=== PATIENT | male | born 1935 | race Caucasian/White ===

== ENCOUNTER 2020-07-04 10:39 | Emergency (ER) | payer MEDICARE ==
--- NOTE | 2020-07-04 12:08 | XR ---
EXAMINATION TYPE: XR knee complete LT DATE OF EXAM: 07/04/2020 CLINICAL HISTORY: Fall. Left knee pain. TECHNIQUE: Three views of the left knee are obtained. COMPARISON: None. FINDINGS: There is no acute fracture/dislocation evident in left knee. There is moderate tricompartm ental degenerative spurring. There is medial compartment joint space narrowing and sclerosis. There i s spurring of the tibial spines, worst medially. There is large suprapatellar joint effusion. Edema o f Hoffa's fat pad. There is quadriceps tendon patellar enthesophyte. Vascular calcified atherosclerot ic disease. IMPRESSION: 1. No acute osseous abnormality. 2. Large suprapatellar joint effusion and infrapatellar edema of Hoffa's fat pad. 3. Osteoarthritic changes as above.
[2020-07-04] MEDS ORDERED: ACET/COD 300 MG/30 MG STARTER PACK 6 TAB BTL PO STA (12:23)
--- NOTE | 2020-07-04 12:23 | ED ---
Fall HPI - General Chief Complaint: Fall Stated Complaint: Fall, Knee Injury Time Seen by Provider: 07/04/20 11:00 Source: patient, family Mode of arrival: wheelchair Limitations: physical limitation - History of Present Illness Initial Comments: 85-year-old male present emergency Department with chief complaint of a fall. Patient fell yesterday. Patient did strike his head but had no point a headache and no facial pain. Patient son states his been acting appropriately. Patient presents today secondary to left knee pain and swelling. No blood thinners noted. Patient has no chest pain or shortness breath no back pain. Patient had difficulty and bleeding secondary pain with assisted devices at home. - Related Data Home Medications Medication Instructions Recorded Confirmed Amoxicillin 500 mg PO Q8H 07/04/20 07/04/20 Aspirin EC [Ecotrin Low Dose] 81 mg PO HS 07/04/20 07/04/20 Furosemide [Lasix] 20 mg PO DAILY 07/04/20 07/04/20 Melatonin Unknown Dose 1 tab PO HS 07/04/20 07/04/20 Metoprolol Succinate [Toprol XL] 12.5 mg PO DAILY 07/04/20 07/04/20 Simvastatin [Zocor] 20 mg PO HS 07/04/20 07/04/20 Tamsulosin [Flomax] 0.4 mg PO BID 07/04/20 07/04/20 lisinopriL [Zestril] 5 mg PO DAILY 07/04/20 07/04/20 Allergies Allergy/AdvReac Type Severity Reaction Status Date / Time No Known Allergies Allergy Verified 07/04/20 11:27 Review of Systems ROS Statement: Those systems with pertinent positive or pertinent negative responses have been documented in the HPI. ROS Other: All systems not noted in ROS Statement are negative. Past Medical History Past Medical History: Hypertension History of Any Multi-Drug Resistant Organisms: None Reported Past Surgical History: Pacemaker Smoking Status: Never smoker Past Alcohol Use History: None Reported Past Drug Use History: None Reported General Exam Limitations: physical limitation General appearance: alert, in no apparent distress Head exam: Present: atraumatic, normocephalic, normal inspection Eye exam: Present: normal appearance, PERRL, EOMI. Absent: scleral icterus, conjunctival injection, periorbital swelling ENT exam: Present: normal exam, mucous membranes moist Neck exam: Present: normal inspection. Absent: tenderness, meningismus, lymphadenopathy Respiratory exam: Present: normal lung sounds bilaterally. Absent: respiratory distress, wheezes, rales, rhonchi, stridor Cardiovascular Exam: Present: regular rate, normal rhythm, normal heart sounds. Absent: systolic murmur, diastolic murmur, rubs, gallop, clicks Extremities exam: Present: other (Left knee there is moderate swelling noted, no significant ecchymosis. Pulses equal bilaterally lower extremity is no tenderness of bubble or below the left knee.) Back exam: Present: full ROM. Absent: tenderness Neurological exam: Present: alert, oriented X3, CN II-XII intact, reflexes normal. Absent: motor sensory deficit Course Vital Signs 07/04/20 10:56 Temperature 98.5 F Pulse Rate 70 Respiratory 18 Rate Blood Pressure 140/62 O2 Sat by Pulse 97 Oximetry Medical Decision Making - Medical Decision Making X-ray was reviewed patient has evidence of no bony injury evidence of severe joint effusion. Patient will use a walking assistive device will follow-up with orthopedics for possible drainage. Return parameters were discussed. Family updated and results. Disposition Clinical Impression: Fall, Left knee sprain, Effusion of left knee joint Disposition: HOME SELF-CARE Condition: Stable Instructions (If sedation given, give patient instructions): Swollen Knee Joint (ED) Additional Instructions: Please return to the Emergency Department if symptoms worsen or any other concerns. Is patient prescribed a controlled substance at d/c from ED?: No Referrals: Tamiko Cooper MD [Primary Care Provider] - 1-2 days Kirill Francisco MD [STAFF PHYSICIAN] - 1-2 days Time of Disposition: 12:22
[2020-07-04 12:35] VITALS: BP 156/81; PULSE 66; RESP 12; TEMP 97.5
== END 2020-07-04 12:46 | disposition home or self-care (01) ==
LOC: EC 10:39
DX: S83.92XA Sprain of unspecified site of left knee, initial encounter (principal); M25.462 Effusion, left knee; I10 Essential (primary) hypertension; Z79.899 Other long term (current) drug therapy; Z95.0 Presence of cardiac pacemaker; W01.198A Fall on same level from slipping, tripping and stumbling with subsequent striking against other object, initial encounter; Y92.009 Unspecified place in unspecified non-institutional (private) residence as the place of occurrence of the external cause
CPT/HCPCS: 99283

== ENCOUNTER 2020-12-23 11:53 | Inpatient (IN) | payer MEDICARE ==
--- NOTE | 2020-12-23 13:55 | ED ---
SOB HPI <Nick Tyson - Last Filed: 12/23/20 17:33> - General Source: patient, family Mode of arrival: wheelchair Limitations: no limitations <Bhargav Elena - Last Filed: 12/23/20 18:37> - General Chief Complaint: Shortness of Breath Stated Complaint: SOB Time Seen by Provider: 12/23/20 13:51 - History of Present Illness Initial Comments: 85-year-old male with history of dementia, dyslipidemia, hypertension, heart failure presents to the emergency department with a chief complaint of shortness of breath. Daughter states the patient has been slightly more confused over the last several days where she will forget about a food and where he dropped off his drinks. Daughter states the patient also seems to be taking deeper breaths than usual. Patient denies any chest pain report feeling slightly short of breath. Daughter states the patient was mentally well until about 10 months ago when he had multiple broken ribs after fall, and has since been gradually declining. There is no nausea vomiting or diarrhea. She also states the patient has not been taking his Lasix for approximately 2 weeks. He does have bilateral lower extremity edema. Patient is alert to self and place but not time. (Bhargav Elena) - Related Data Home Medications Medication Instructions Recorded Confirmed Aspirin EC [Ecotrin Low Dose] 81 mg PO HS 07/04/20 12/23/20 Metoprolol Succinate [Toprol XL] 12.5 mg PO DAILY 07/04/20 12/23/20 Simvastatin [Zocor] 20 mg PO HS 07/04/20 12/23/20 Tamsulosin [Flomax] 0.4 mg PO DAILY 07/04/20 12/23/20 lisinopriL [Zestril] 5 mg PO DAILY 07/04/20 12/23/20 Cholecalciferol [Vitamin D3 (25 25 mcg PO DAILY 12/23/20 12/23/20 Mcg = 1000 Iu)] Furosemide [Lasix] 20 mg PO DAILY 12/23/20 12/23/20 Prevagen 1 tab PO DAILY 12/23/20 12/23/20 Allergies Allergy/AdvReac Type Severity Reaction Status Date / Time No Known Allergies Allergy Verified 12/23/20 15:24 Review of Systems ROS Other: All systems not noted in ROS Statement are negative. <Nick Tyson - Last Filed: 12/23/20 17:33> ROS Other: All systems not noted in ROS Statement are negative. <Bhargav Elena - Last Filed: 12/23/20 18:37> ROS Statement: Those systems with pertinent positive or pertinent negative responses have been documented in the HPI. Past Medical History Past Medical History: Heart Failure, Hyperlipidemia, Hypertension History of Any Multi-Drug Resistant Organisms: None Reported Past Surgical History: Pacemaker Past Psychological History: No Psychological Hx Reported Smoking Status: Never smoker Past Alcohol Use History: None Reported Past Drug Use History: None Reported <Bhargav Elena - Last Filed: 12/23/20 18:37> General Exam Limitations: no limitations General appearance: alert, in no apparent distress Head exam: Present: atraumatic, normocephalic, normal inspection Eye exam: Present: normal appearance, PERRL, EOMI Pupils: Present: normal accommodation ENT exam: Present: normal exam, normal oropharynx, mucous membranes moist Neck exam: Present: normal inspection, full ROM. Absent: tenderness Respiratory exam: Present: normal lung sounds bilaterally. Absent: respiratory distress Cardiovascular Exam: Present: regular rate, normal rhythm, normal heart sounds GI/Abdominal exam: Present: soft. Absent: distended, tenderness, guarding, rebound Extremities exam: Present: normal inspection, full ROM, normal capillary refill, pedal edema (+2 pitting edema bilaterally.), other (Palpable DP and PT bilaterally). Absent: tenderness, joint swelling Back exam: Present: normal inspection, full ROM. Absent: tenderness, CVA tenderness (R), CVA tenderness (L) Neurological exam: Present: alert. Absent: oriented X3 ( Patient is alert to self and place but not time.) Psychiatric exam: Present: normal affect, normal mood Skin exam: Present: warm, dry, intact, normal color, petechiae (Petechiae noted in bilateral lower extremities. She also has ecchymosis on the posterior aspect the left hand.), other (Patient appears slightly jaundiced.) <Bhargav Elena - Last Filed: 12/23/20 18:37> Course <Nick Tyson - Last Filed: 12/23/20 17:33> Vital Signs 12/23/20 12:09 Temperature 97.7 F Pulse Rate 70 Respiratory 18 Rate Blood Pressure 142/70 O2 Sat by Pulse 98 Oximetry - Reevaluation(s) Reevaluation #1: 12/23/20 17:33 PA supervision: I personally evaluate this case patient presenting with shortness of breath and increased confusion over last couple days. He was found on evaluation have pneumonia with a right-sided effusion attempts at pain. He looks and has clinical evidence of dehydration. CTs were negative for evidence of any bleeding or PE. He did have a markedly elevated d-dimer. Discussed with Dr. ballard (Nick Tyson) Medical Decision Making - Lab Data Result diagrams: 12/23/20 15:00 12/23/20 15:00 <Nick Tyson - Last Filed: 12/23/20 17:33> - Lab Data Result diagrams: 12/23/20 15:00 12/23/20 15:00 <Bhargav Elena - Last Filed: 12/23/20 18:37> - Medical Decision Making 85-year-old male presents to the emergency department with a chief complaint of shortness of breath and confusion. On physical examination, patient is alert and oriented 2. He does have petechia in bilateral lower extremities likely some secondary to not taking his Lasix for about 2 weeks. Patient had a markedly elevated d-dimer. CT chest and U performed shows no signs of pulmonary embolism but there is a bilateral pleural effusion, as well as right lower lobe pneumonia. CBC shows no leukocytosis but there is marked thrombocytopenia with platelet count of 13 which is likely causing the petechia. Immediately a CT of the brain was obtained showing no acute processes. Blood cultures were obtained and patient was started on Rocephin and azithromycin. Coronavirus negative. I spoke with Dr. ballard who will admit the patient for further medical management. Case discussed with Dr. Tyson who walks examine the patient and is in agreement with the treatment plan. (Bhargav Elena) - Lab Data Lab Results 12/23/20 12/23/20 12/23/20 Range/Units 15:00 15:00 15:00 WBC 6.8 (3.8-10.6) k/uL RBC 3.33 L (4.30-5.90) m/uL Hgb 10.0 L (13.0-17.5) gm/dL Hct 30.2 L (39.0-53.0) % MCV 90.6 (80.0-100.0) fL MCH 30.1 (25.0-35.0) pg MCHC 33.2 (31.0-37.0) g/dL RDW 16.6 H (11.5-15.5) % Plt Count 13 L* (150-450) k/uL MPV 8.3 Neutrophils % 81 % Lymphocytes % 11 % Monocytes % 6 % Eosinophils % 1 % Basophils % 0 % Neutrophils # 5.6 (1.3-7.7) k/uL Lymphocytes # 0.7 L (1.0-4.8) k/uL Monocytes # 0.4 (0-1.0) k/uL Eosinophils # 0.1 (0-0.7) k/uL Basophils # 0.0 (0-0.2) k/uL Manual Slide Review Performed Anisocytosis Slight PT 12.6 H (9.0-12.0) sec INR 1.2 H (<1.2) APTT 27.4 (22.0-30.0) sec D-Dimer >34.10 H (<0.60) mg/L FEU Sodium 142 (137-145) mmol/L Potassium 4.8 (3.5-5.1) mmol/L Chloride 108 H (98-107) mmol/L Carbon Dioxide 27 (22-30) mmol/L Anion Gap 7 mmol/L BUN 34 H (9-20) mg/dL Creatinine 0.63 L (0.66-1.25) mg/dL Est GFR (CKD-EPI)AfAm >90 (>60 ml/min/1.73 sqM) Est GFR (CKD-EPI)NonAf 89 (>60 ml/min/1.73 sqM) Glucose 108 H (74-99) mg/dL Calcium 9.3 (8.4-10.2) mg/dL Magnesium 2.2 (1.6-2.3) mg/dL Total Bilirubin 3.6 H (0.2-1.3) mg/dL AST 31 (17-59) U/L ALT 20 (4-49) U/L Alkaline Phosphatase 110 (38-126) U/L Ammonia (<30) umol/L Troponin I (0.000-0.034) ng/mL NT-Pro-B Natriuret Pep pg/mL Total Protein 7.2 (6.3-8.2) g/dL Albumin 4.2 (3.5-5.0) g/dL Urine Color Urine Appearance (Clear) Urine pH (5.0-8.0) Ur Specific Sy[place] (1.001-1.035) Urine Protein (Negative) Urine Glucose (UA) (Negative) Urine Ketones (Negative) Urine Blood (Negative) Urine Nitrite (Negative) Urine Bilirubin (Negative) Urine Urobilinogen (<2.0) mg/dL Ur Leukocyte Esterase (Negative) Urine RBC (0-5) /hpf Urine WBC (0-5) /hpf Ur Squamous Epith Cells (0-4) /hpf Hyaline Casts (0-2) /lpf Urine Mucus (None) /hpf Coronavirus (PCR) (Not Detectd) 12/23/20 12/23/20 12/23/20 Range/Units 15:00 15:00 15:00 WBC (3.8-10.6) k/uL RBC (4.30-5.90) m/uL Hgb (13.0-17.5) gm/dL Hct (39.0-53.0) % MCV (80.0-100.0) fL MCH (25.0-35.0) pg MCHC (31.0-37.0) g/dL RDW (11.5-15.5) % Plt Count (150-450) k/uL MPV Neutrophils % % Lymphocytes % % Monocytes % % Eosinophils % % Basophils % % Neutrophils # (1.3-7.7) k/uL Lymphocytes # (1.0-4.8) k/uL Monocytes # (0-1.0) k/uL Eosinophils # (0-0.7) k/uL Basophils # (0-0.2) k/uL Manual Slide Review Anisocytosis PT (9.0-12.0) sec INR (<1.2) APTT (22.0-30.0) sec D-Dimer (<0.60) mg/L FEU Sodium (137-145) mmol/L Potassium (3.5-5.1) mmol/L Chloride (98-107) mmol/L Carbon Dioxide (22-30) mmol/L Anion Gap mmol/L BUN (9-20) mg/dL Creatinine (0.66-1.25) mg/dL Est GFR (CKD-EPI)AfAm (>60 ml/min/1.73 sqM) Est GFR (CKD-EPI)NonAf (>60 ml/min/1.73 sqM) Glucose (74-99) mg/dL Calcium (8.4-10.2) mg/dL Magnesium (1.6-2.3) mg/dL Total Bilirubin (0.2-1.3) mg/dL AST (17-59) U/L ALT (4-49) U/L Alkaline Phosphatase (38-126) U/L Ammonia <9 (<30) umol/L Troponin I 0.033 (0.000-0.034) ng/mL NT-Pro-B Natriuret Pep 6160 pg/mL Total Protein (6.3-8.2) g/dL Albumin (3.5-5.0) g/dL Urine Color Urine Appearance (Clear) Urine pH (5.0-8.0) Ur Specific Sy[place] (1.001-1.035) Urine Protein (Negative) Urine Glucose (UA) (Negative) Urine Ketones (Negative) Urine Blood (Negative) Urine Nitrite (Negative) Urine Bilirubin (Negative) Urine Urobilinogen (<2.0) mg/dL Ur Leukocyte Esterase (Negative) Urine RBC (0-5) /hpf Urine WBC (0-5) /hpf Ur Squamous Epith Cells (0-4) /hpf Hyaline Casts (0-2) /lpf Urine Mucus (None) /hpf Coronavirus (PCR) (Not Detectd) 12/23/20 12/23/20 Range/Units 15:00 15:00 WBC (3.8-10.6) k/uL RBC (4.30-5.90) m/uL Hgb (13.0-17.5) gm/dL Hct (39.0-53.0) % MCV (80.0-100.0) fL MCH (25.0-35.0) pg MCHC (31.0-37.0) g/dL RDW (11.5-15.5) % Plt Count (150-450) k/uL MPV Neutrophils % % Lymphocytes % % Monocytes % % Eosinophils % % Basophils % % Neutrophils # (1.3-7.7) k/uL Lymphocytes # (1.0-4.8) k/uL Monocytes # (0-1.0) k/uL Eosinophils # (0-0.7) k/uL Basophils # (0-0.2) k/uL Manual Slide Review Anisocytosis PT (9.0-12.0) sec INR (<1.2) APTT (22.0-30.0) sec D-Dimer (<0.60) mg/L FEU Sodium (137-145) mmol/L Potassium (3.5-5.1) mmol/L Chloride (98-107) mmol/L Carbon Dioxide (22-30) mmol/L Anion Gap mmol/L BUN (9-20) mg/dL Creatinine (0.66-1.25) mg/dL Est GFR (CKD-EPI)AfAm (>60 ml/min/1.73 sqM) Est GFR (CKD-EPI)NonAf (>60 ml/min/1.73 sqM) Glucose (74-99) mg/dL Calcium (8.4-10.2) mg/dL Magnesium (1.6-2.3) mg/dL Total Bilirubin (0.2-1.3) mg/dL AST (17-59) U/L ALT (4-49) U/L Alkaline Phosphatase (38-126) U/L Ammonia (<30) umol/L Troponin I (0.000-0.034) ng/mL NT-Pro-B Natriuret Pep pg/mL Total Protein (6.3-8.2) g/dL Albumin (3.5-5.0) g/dL Urine Color Yellow Urine Appearance Clear (Clear) Urine pH 6.5 (5.0-8.0) Ur Specific [place] 1.026 (1.001-1.035) Urine Protein Trace H (Negative) Urine Glucose (UA) Negative (Negative) Urine Ketones Negative (Negative) Urine Blood Small H (Negative) Urine Nitrite Negative (Negative) Urine Bilirubin Negative (Negative) Urine Urobilinogen 8.0 (<2.0) mg/dL Ur Leukocyte Esterase Negative (Negative) Urine RBC 8 H (0-5) /hpf Urine WBC 3 (0-5) /hpf Ur Squamous Epith Cells <1 (0-4) /hpf Hyaline Casts 1 (0-2) /lpf Urine Mucus Few H (None) /hpf Coronavirus (PCR) Not Detected (Not Detectd) Disposition <Nick Tyson - Last Filed: 12/23/20 17:33> Is patient prescribed a controlled substance at d/c from ED?: No Time of Disposition: 18:36 <Bhargav Elena - Last Filed: 12/23/20 18:37> Clinical Impression: Pneumonia, Pleural effusion, Thrombocytopenia Disposition: ADMITTED IP TO THIS HOSP Condition: Fair Referrals: Tamiko Cooper MD [Primary Care Provider] - 1-2 days
[2020-12-23 15:21] LABS: Anisocytosis Slight; Basophils % (A) 0 %; Eosinophils # (A) 0.1 k/uL (0-0.7); Eosinophils % (A) 1 %; HCT 30.2 % (39.0-53.0); Lymphocytes # (A) 0.7 k/uL (1.0-4.8); Lymphocytes % (A) 11 %; MCH 30.1 pg (25.0-35.0); MCHC 33.2 g/dL (31.0-37.0); MCV 90.6 fL (80.0-100.0); Mean Platelet Volume 8.3; Monocytes # (A) 0.4 k/uL (0-1.0); Monocytes % (A) 6 %; Neutrophils # (A) 5.6 k/uL (1.3-7.7); Neutrophils % (A) 81 %; RBC 3.33 m/uL (4.30-5.90); RDW 16.6 % (11.5-15.5); WBC 6.8 k/uL (3.8-10.6)
[2020-12-23 15:33] LABS: ALT 20 U/L (4-49); AST 31 U/L (17-59); African American GFR (CKD) >90 (>60 ml/min/1.73 sqM); Albumin 4.2 g/dL (3.5-5.0); Alkaline Phosphatase 110 U/L (38-126); Anion Gap 7 mmol/L; Blood Urea Nitrogen 34 mg/dL (9-20); Calcium 9.3 mg/dL (8.4-10.2); Carbon Dioxide 27 mmol/L (22-30); Chloride 108 mmol/L (98-107); Glucose 108 mg/dL (74-99); Magnesium 2.2 mg/dL (1.6-2.3); Non-African American GFR(CKD) 89 (>60 ml/min/1.73 sqM); Potassium 4.8 mmol/L (3.5-5.1); Sodium 142 mmol/L (137-145); Total Bilirubin 3.6 mg/dL (0.2-1.3); Total Protein 7.2 g/dL (6.3-8.2)
[2020-12-23 15:39] LABS: Platelet Count 13 k/uL (150-450)
[2020-12-23 15:40] LABS: INR 1.2 (<1.2); Partial Thromboplastin Time 27.4 sec (22.0-30.0); Prothrombin Time 12.6 sec (9.0-12.0)
[2020-12-23 15:42] LABS: D-Dimer >34.10 mg/L FEU (<0.60)
--- NOTE | 2020-12-23 15:51 | XR ---
EXAMINATION TYPE: XR chest 2V DATE OF EXAM: 12/23/2020 COMPARISON: NONE HISTORY: Chest pain, shortness of breath TECHNIQUE: Frontal and lateral views of the chest are obtained. FINDINGS: Prominent lung volumes may be indicative of underlying COPD. There is a generator in left pectoral region, leads are noted in the right atrium, right ventricle and coronary sinus. There is no evident pneumothorax. Patchy basilar density is present, the right hemidiaphragm is obscured, there is blunting the right costophrenic angle. Heart is enlarged. Aorta is dense. There is no evident pneu mothorax. There are overlying leads. IMPRESSION: Right pleural effusion and associated atelectasis, correlate to exclude pneumonia. Cardi omegaly
[2020-12-23 16:29] LABS: Appearance,Urine Clear (Clear); Bilirubin,Urine Negative (Negative); Blood,Urine Small (Negative); Color,Urine Yellow; Glucose,Urine (UA) Negative (Negative); Hyaline Casts,Urine 1 /lpf (0-2); Ketones,Urine Negative (Negative); Leukocyte Esterase,Urine Negative (Negative); Mucus,Urine Few /hpf; Nitrite,Urine Negative (Negative); PH, Urine 6.5 (5.0-8.0); Protein,Urine Trace (Negative); RBC,Urine 8 /hpf (0-5); Specific Gravity,Urine 1.026 (1.001-1.035); Squamous Epithelial Cell,Urine <1 /hpf (0-4); WBC,Urine 3 /hpf (0-5)
--- NOTE | 2020-12-23 16:47 | CT ---
EXAMINATION TYPE: CT brain wo con DATE OF EXAM: 12/23/2020 COMPARISON: None HISTORY: Altered mental status CT DLP: 1047.4 mGycm Automated exposure control for dose reduction was used. There is cerebral cortical atrophy. There is no mass effect normal Shift. There is no sign of intracranial hemorrhage. Calvarium is intact. Skull base is intact. There is normal aeration of the mastoid sinuses. Nasal bone is intact. IMPRESSION: Cerebral atrophy. No acute intracranial abnormality. Chronic small vessel ischemia.
--- NOTE | 2020-12-23 16:53 | CT ---
EXAMINATION TYPE: CT chest angio for PE DATE OF EXAM: 12/23/2020 COMPARISON: None HISTORY: Short of breath CT DLP: mGycm Automated exposure control for dose reduction was used. CONTRAST: The contrast was Isovue 100 mL. There are 3-D post processed images. There is moderate size right pleural effusion. There is some infiltrate and atelectasis right lung ba se. Heart is enlarged. There is no pericardial effusion. There is small left pleural effusion. Thoracic aorta shows atheromatous change. There is no aneurysm or dissection. There is normal contrast opacification of the pulmonary arteries. There are no filling defects. The thoracic vertebra appear intact. There is no compression fracture. Sternum is intact. IMPRESSION: No evidence of pulmonary embolism. Moderate right pleural effusion and small left pleural effusion. Right lower lobe pneumonia and atel ectasis. No suspicious pulmonary mass.
[2020-12-23] MEDS ORDERED: ACETAMINOPHEN TAB 325 MG TAB PO PRN (17:35)
[2020-12-23] MEDS ORDERED: ONDANSETRON 4 MG/2 ML VIAL IVP PRN (17:35)
[2020-12-23] MEDS ORDERED: NALOXONE 0.4 MG/ML 1 ML VIAL IV PRN (17:35)
[2020-12-23] MEDS ORDERED: LORazepam 2 MG/ML INJ IV PRN (17:35)
[2020-12-23] MEDS ORDERED: cefTRIAXone IN SWFI 1,000 MG/10 ML SYRINGE IVP STA (17:36)
[2020-12-23] MEDS ORDERED: AZITHROMYCIN 500 MG in SODIUM CHLORIDE 0.9% 250 ML IVPB STA (17:36)
[2020-12-23] MEDS: SODIUM CHLORIDE 0.9% 1,000 ML IV SCH (18:38)
[2020-12-24] MEDS: SODIUM CHLORIDE 0.9% 1,000 ML IV SCH (08:13)
[2020-12-24 10:54] VITALS: BMI 22.1
--- NOTE | 2020-12-24 15:06 | P.HPIM ---
History of Present Illness 85-year-old the male with history of dementia has been worsening For few months was brought in by the family members for probable shortness of breath family members are not available patient is unable to provide any history to me patient had the workup with a CT which did not show any pulmonary embolism patient has highly elevated d-dimer and severe thrombocytopenia patient did have bilateral pleural effusions, elevated BNP and unable to assess JVD because of maximum usage. Echocardiogram will be obtained. Patient has been falling lately and broken multiple ribs after a fall 10 months ago. Since then patient to functional status as well as mental status has been constantly declining. Patient appears to have worsening dementia. Doesn't appear to have any delirium at this time. Patient doesn't have any fever chills patient doesn't have any leukocytosis. He is mildly elevated INR of 1.2 patient is alert oriented times probably 1. Patient doesn't look ill Review of Systems Unable to obtain due to his clinical condition and advanced dementia Past Medical History Past Medical History: Cancer, Heart Failure, Hyperlipidemia, Hypertension, Ben ry Impairment Additional Past Medical History / Comment(s): skin cancer, chest pain over 40 years ago, shingles when he was 39 years old, left eye blind, enlarged prostate multiple times where he has had to have catheters put in for a week before, bowel obstruction related to bowel kinked, per daughter only wants father to receive over counter pain meds no iv or hard medication it makes him very confused History of Any Multi-Drug Resistant Organisms: None Reported Past Surgical History: Pacemaker Past Anesthesia/Blood Transfusion Reactions: No Reported Reaction Type of Cardiac Device: Permanent Pacemaker Device Placement Date:: 12/03/2014 Past Psychological History: No Psychological Hx Reported Additional Psychological History / Comment(s): son lives with him, patient gets meals on wheels Smoking Status: Never smoker Past Alcohol Use History: None Reported Past Drug Use History: None Reported - Past Family History Father Family Medical History: Unable to Obtain Medications and Allergies Home Medications Medication Instructions Recorded Confirmed Type Aspirin EC [Ecotrin Low Dose] 81 mg PO HS 07/04/20 12/23/20 History Metoprolol Succinate [Toprol XL] 12.5 mg PO DAILY 07/04/20 12/23/20 History Simvastatin [Zocor] 20 mg PO HS 07/04/20 12/23/20 History Tamsulosin [Flomax] 0.4 mg PO DAILY 07/04/20 12/23/20 History lisinopriL [Zestril] 5 mg PO DAILY 07/04/20 12/23/20 History Cholecalciferol [Vitamin D3 (25 25 mcg PO DAILY 12/23/20 12/23/20 History Mcg = 1000 Iu)] Furosemide [Lasix] 20 mg PO DAILY 12/23/20 12/23/20 History Prevagen 1 tab PO DAILY 12/23/20 12/23/20 History Allergies Allergy/AdvReac Type Severity Reaction Status Date / Time No Known Allergies Allergy Verified 12/23/20 15:24 Physical Exam Vitals: Vital Signs Temp Pulse Pulse Resp BP BP Pulse Ox 12/24/20 13:52 97.5 F L 78 18 175/69 94 L 12/24/20 07:50 97.5 F L 70 20 158/75 100 12/24/20 04:05 97.6 F 69 16 150/75 97 12/24/20 00:50 97.5 F L 69 16 157/82 98 12/23/20 23:00 98.3 F 70 20 139/78 95 12/23/20 22:00 70 20 137/69 96 12/23/20 21:00 70 18 132/83 96 12/23/20 20:00 70 18 121/79 99 12/23/20 18:00 70 22 148/95 96 12/23/20 17:00 70 22 162/84 96 12/23/20 16:00 70 22 160/85 98 12/23/20 15:00 70 20 143/95 99 Intake and Output 12/23/20 12/24/20 12/24/20 22:59 06:59 14:59 Intake Total 350 Balance 350 Intake: Intake, IV Titration 350 Amount Sodium Chloride 0.9% 1, 350 000 ml @ 75 mls/hr IV . [id number] Rx#:[id number] Other: Voiding Method Toilet # Voids 1 Weight 68.039 kg 68.039 kg PHYSICAL EXAMINATION: GENERAL: The patient is alert and oriented x1, not in any acute distress. Well developed, well nourished. HEENT: Pupils are round and equally reacting to light. EOMI. No scleral icterus. No conjunctival pallor. Normocephalic, atraumatic. No pharyngeal erythema. No thyromegaly. CARDIOVASCULAR: S1 and S2 present. No murmurs, rubs, or gallops. PULMONARY: Chest is clear to auscultation, no wheezing or crackles. ABDOMEN: Soft, nontender, nondistended, normoactive bowel sounds. No palpable organomegaly. MUSCULOSKELETAL: No joint swelling or deformity. EXTREMITIES: No cyanosis, clubbing, or pedal edema. NEUROLOGICAL: Unable to assess much of urine exam as patient doesn't follow c ommands very well SKIN: No rashes. Results CBC & Chem 7: 12/23/20 15:00 12/23/20 15:00 Labs: Abnormal Lab Results - Last 24 Hours (Table) 12/23/20 12/23/20 12/23/20 Range/Units 15:00 15:00 15:00 RBC 3.33 L (4.30-5.90) m/uL Hgb 10.0 L (13.0-17.5) gm/dL Hct 30.2 L (39.0-53.0) % RDW 16.6 H (11.5-15.5) % Plt Count 13 L* (150-450) k/uL Lymphocytes # 0.7 L (1.0-4.8) k/uL PT 12.6 H (9.0-12.0) sec INR 1.2 H (<1.2) D-Dimer >34.10 H (<0.60) mg/L FEU Chloride 108 H (98-107) mmol/L BUN 34 H (9-20) mg/dL Creatinine 0.63 L (0.66-1.25) mg/dL Glucose 108 H (74-99) mg/dL Total Bilirubin 3.6 H (0.2-1.3) mg/dL Urine Protein (Negative) Urine Blood (Negative) Urine RBC (0-5) /hpf Urine Mucus (None) /hpf 12/23/20 Range/Units 15:00 RBC (4.30-5.90) m/uL Hgb (13.0-17.5) gm/dL Hct (39.0-53.0) % RDW (11.5-15.5) % Plt Count (150-450) k/uL Lymphocytes # (1.0-4.8) k/uL PT (9.0-12.0) sec INR (<1.2) D-Dimer (<0.60) mg/L FEU Chloride (98-107) mmol/L BUN (9-20) mg/dL Creatinine (0.66-1.25) mg/dL Glucose (74-99) mg/dL Total Bilirubin (0.2-1.3) mg/dL Urine Protein Trace H (Negative) Urine Blood Small H (Negative) Urine RBC 8 H (0-5) /hpf Urine Mucus Few H (None) /hpf Thrombosis Risk Factor Assmnt - Choose All That Apply Each Factor Represents 1 point: Medical pt on bed rest, Swollen legs (current) Other Risk Factors: Yes Each Risk Factor Represents 2 Points: Patient confined to bed Each Risk Factor Represents 3 Points: Age 75 years or older Other congenital or acquired thrombophilia - If yes, enter type in comment: No Thrombosis Risk Factor Assessment Total Risk Factor Score: 7 Thrombosis Risk Factor Assessment Level: High Risk Assessment and Plan Plan: -Short of breath: Possibly congestive heart failure chronic diastolic dysfunc tion with acute exacerbation echocardiogram will be obtained patient has bilateral pleural effusions and elevated BNP. Patient has moderate pleural effusion on the right side small pleural effusion on the left side will repeat chest x-ray after diuresis and assess the need for thoracocentesis. 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 Patient is already in aspirin which will be continued and also on statin. -Severe thrombocytopenia along with elevated d-dimer although there is no PE patient will need further evaluation because of these 2 abnormalities and hematology was consulted. -Chronic anemia without any active bleed. Patient MCVs 90 will obtain a B12 and folate levels -Generalized deconditioning due to advancing age and dementia. Physical therapy and outpatient therapy will evaluate the patient and-hypertension -Benign prostatic hypertrophy -Hyperlipidemia -No pharmacological DVT prophylaxis because of severe thrombocytopenia
[2020-12-24 20:05] LABS: Anisocytosis Slight; Basophils % (A) 0 %; Eosinophils # (A) 0.1 k/uL (0-0.7); Eosinophils % (A) 2 %; HCT 29.6 % (39.0-53.0); HGB 10.2 gm/dL (13.0-17.5); Lymphocytes # (A) 0.9 k/uL (1.0-4.8); Lymphocytes % (A) 13 %; MCH 31.9 pg (25.0-35.0); MCHC 34.4 g/dL (31.0-37.0); MCV 92.7 fL (80.0-100.0); Mean Platelet Volume 9.6; Monocytes # (A) 0.5 k/uL (0-1.0); Monocytes % (A) 7 %; Neutrophils # (A) 5.2 k/uL (1.3-7.7); Neutrophils % (A) 77 %; RDW 16.8 % (11.5-15.5); WBC 6.8 k/uL (3.8-10.6)
[2020-12-24 20:25] LABS: ALT 18 U/L (4-49); AST 24 U/L (17-59); African American GFR (CKD) >90 (>60 ml/min/1.73 sqM); Albumin 4.2 g/dL (3.5-5.0); Albumin/Globulin Ratio 1.4; Alkaline Phosphatase 95 U/L (38-126); Anion Gap 6 mmol/L; Blood Urea Nitrogen 30 mg/dL (9-20); Calcium 9.4 mg/dL (8.4-10.2); Carbon Dioxide 27 mmol/L (22-30); Chloride 110 mmol/L (98-107); Globulin 2.9 g/dL; Glucose 147 mg/dL (74-99); Non-African American GFR(CKD) >90 (>60 ml/min/1.73 sqM); Potassium 4.5 mmol/L (3.5-5.1); Sodium 143 mmol/L (137-145); Total Bilirubin 2.3 mg/dL (0.2-1.3); Total Protein 7.1 g/dL (6.3-8.2)
[2020-12-24 20:26] LABS: LDH 1643 U/L (313-618)
[2020-12-24 21:05] LABS: INR 1.2 (<1.2); Partial Thromboplastin Time 26.6 sec (22.0-30.0); Prothrombin Time 12.1 sec (9.0-12.0)
[2020-12-24 21:11] LABS: Platelet Count 42 k/uL (150-450)
--- NOTE | 2020-12-24 21:16 | P.CONS ---
History of Present Illness - Reason for Consult Consult date: 12/24/20 Thrombocytopenia Requesting physician: Jasmin Thakkar - Chief Complaint Pneumonia - History of Present Illness This is an 85 year old male admitted with worsening mental status, shortness of breath. He was found to have platelet count of 13K, therefore hematology was a sked to further evaluate. Redraw of his cbc revealed a platelet count of 42K, inconsistencies may be related to etiology of sepsis versus potential platlet clumping. Further work-up ordered and further cultures pending from admission. No signs of bleeding at this time. Hemoglobin appears baseline when trended. Review of Systems ROS unobtainable: due to mental status 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, per daughter only wants father to receive over counter pain meds no iv or hard medication it makes him very confused History of Any Multi-Drug Resistant Organisms: None Reported Past Surgical History: Pacemaker Past Anesthesia/Blood Transfusion Reactions: No Reported Reaction Type of Cardiac Device: Permanent Pacemaker Device Placement Date:: 12/03/2014 Past Psychological History: No Psychological Hx Reported Additional Psychological History / Comment(s): son lives with him, patient gets meals on wheels Smoking Status: Never smoker Past Alcohol Use History: None Reported Past Drug Use History: None Reported - Past Family History Father Family Medical History: Unable to Obtain Medications and Allergies Home Medications Medication Instructions Recorded Confirmed Type Aspirin EC [Ecotrin Low Dose] 81 mg PO HS 07/04/20 12/23/20 History Metoprolol Succinate [Toprol XL] 12.5 mg PO DAILY 07/04/20 12/23/20 History Simvastatin [Zocor] 20 mg PO HS 07/04/20 12/23/20 History Tamsulosin [Flomax] 0.4 mg PO DAILY 07/04/20 12/23/20 History lisinopriL [Zestril] 5 mg PO DAILY 07/04/20 12/23/20 History Cholecalciferol [Vitamin D3 (25 25 mcg PO DAILY 12/23/20 12/23/20 History Mcg = 1000 Iu)] Furosemide [Lasix] 20 mg PO DAILY 12/23/20 12/23/20 History Prevagen 1 tab PO DAILY 12/23/20 12/23/20 History Allergies Allergy/AdvReac Type Severity Reaction Status Date / Time No Known Allergies Allergy Verified 12/23/20 15:24 Physical Exam Vitals: Vital Signs Temp Pulse Pulse Resp BP BP Pulse Ox 12/24/20 19:20 97.8 F 67 20 188/68 98 12/24/20 17:34 70 20 165/89 96 12/24/20 13:52 97.5 F L 78 18 175/69 94 L 12/24/20 07:50 97.5 F L 70 20 158/75 100 12/24/20 04:05 97.6 F 69 16 150/75 97 12/24/20 00:50 97.5 F L 69 16 157/82 98 12/23/20 23:00 98.3 F 70 20 139/78 95 12/23/20 22:00 70 20 137/69 96 Intake and Output 12/24/20 12/24/20 12/24/20 06:59 14:59 22:59 Intake Total 350 Balance 350 Intake: Intake, IV Titration 350 Amount Sodium Chloride 0.9% 1, 350 000 ml @ 75 mls/hr IV . [id number] [facility] Rx#:[id number] Other: Voiding Method Toilet # Voids 1 4 # Bowel Movements 1 Weight 68.039 kg 68.039 kg - Constitutional General appearance: no acute distress - EENT ENT: normal oropharynx - Neck Neck: normal ROM - Respiratory Respiratory: right: rhonchi, bilateral: diminished - Cardiovascular Rhythm: irregularly irregular - Gastrointestinal General gastrointestinal: soft - Integumentary Integumentary: pale - Neurologic christopher - Musculoskeletal Musculoskeletal: generalized weakness - Psychiatric Alert and oriented x1 Results CBC & Chem 7: 12/24/20 19:12 12/24/20 19:12 Labs: Abnormal Lab Results - Last 24 Hours (Table) 12/24/20 12/24/20 12/24/20 Range/Units 19:12 19:12 19:12 RBC 3.20 L (4.30-5.90) m/uL Hgb 10.2 L (13.0-17.5) gm/dL Hct 29.6 L (39.0-53.0) % RDW 16.8 H (11.5-15.5) % Plt Count 42 L D (150-450) k/uL Lymphocytes # 0.9 L (1.0-4.8) k/uL PT 12.1 H (9.0-12.0) sec INR 1.2 H (<1.2) Fibrinogen 140 L (200-500) mg/dL Chloride 110 H (98-107) mmol/L BUN 30 H (9-20) mg/dL Creatinine 0.61 L (0.66-1.25) mg/dL Glucose 147 H (74-99) mg/dL Total Bilirubin 2.3 H (0.2-1.3) mg/dL Lactate Dehydrogenase 1643 H (313-618) U/L Microbiology - Last 24 Hours (Table) 12/23/20 18:35 Blood Culture - Preliminary Blood No Growth after 24 hours 12/23/20 18:16 Blood Culture - Preliminary Blood No Growth after [address] scan - chest: report reviewed Assessment and Plan Plan: Assessment and Recommendations: Normocytic Anemia: - Chronic and appears baseline when trended - Further work-up [pending Thrombocytopenia: - Redraw 42K - Further work-up for DIC and/or platelet cluming potential - Monitor daily, no AC while less than 50K, transfuse less than 15K Hyperbilirubinemia - Assess for underlying hemolysis Increased LDH: - Hemolytic work- up pending
[2020-12-24] MEDS: ASPIRIN 81 MG PO SCH (22:01)
[2020-12-24] MEDS: FUROSEMIDE 10 MG/ML 4 ML VIAL IV SCH (22:02)
[2020-12-24] MEDS: ATORVASTATIN 10 MG TAB PO SCH (22:02)
[2020-12-24 23:10] LABS: Folate, Serum 10.8 ng/mL
[2020-12-25] MEDS: ASPIRIN 81 MG PO SCH (04:40)
[2020-12-25] MEDS: CHOLECALCIFEROL 25 MCG (1000 IU) TABLET PO SCH (07:11)
[2020-12-25] MEDS: METOPROLOL SUCCINATE (ER) 25 MG TAB.ER.24H PO SCH (07:11)
[2020-12-25] MEDS: TAMSULOSIN 0.4 MG CAP.ER.24H PO SCH (07:11)
[2020-12-25] MEDS: FUROSEMIDE 10 MG/ML 4 ML VIAL IV SCH ×2 (07:12→20:47)
[2020-12-25] MEDS: lisinopriL 5 MG TAB PO SCH (07:12)
[2020-12-25 09:14] LABS: Reticulocyte % 4.12 % (0.10-1.80)
[2020-12-25 09:32] LABS: % Iron Saturation 24.42 (15.00-50.00); Iron 74 ug/dL (65-175); Total Iron Binding Capacity 303 ug/dL (228-460)
--- NOTE | 2020-12-25 09:39 | ECHOF ---
Referral Reason:Congestive heart failure MEASUREMENTS -------- HEIGHT: 177.8 cm WEIGHT: 68.0 kg BP: RVIDd: 2.7 cm (< 3.3) IVSd: 1.3 cm (0.6 - 1.1) LVIDd: 5.4 cm (3.9 - 5.3) LVPWd: 1.4 cm (0.6 - 1.1) IVSs: 1.6 cm LVIDs: 5.0 cm LVPWs: 1.5 cm LAESV Index (A-L): 57.04 ml/m Ao Diam: 3.2 cm (2.0 - 3.7) AV Cusp: 2.0 cm (1.5 - 2.6) LA Diam: 3.8 cm (2.7 - 3.8) MV EXCURSION: 12.495 mm (> 18.000) MV EF SLOPE: 46 mm/s (70 - 150) EPSS: 1.5 cm MV E Osman: 1.10 m/s MV DecT: 194 ms MV A Osman: 0.32 m/s MV E/A Ratio: 3.38 RAP: 5.00 mmHg RVSP: 60.17 mmHg FINDINGS -------- This was a technically good study. The left ventricular size is normal. There is moderate concentric left ventricular hypertrophy. T here is severe global hypokinesis of LV . Overall left ventricular systolic function is severely im paired with, an EF between 20 - 25 %. Left ventricular fillimg pressure cannot be estimated due to paced rhythm. The right ventricle is normal in size. LA is severely dilated >40 ml/m2 The right atrial size is normal. The aortic valve is trileaflet and appears structurally normal. The mitral valve is normal. Mild mitral regurgitation is present. The tricuspid valve appears structurally normal. Mild tricuspid regurgitation present. There is m oderate pulmonary hypertension. The right ventricular systolic pressure, as measured by Doppler, is 60.17mmHg. Trace/mild (physiologic) pulmonic regurgitation. The aortic root size is normal. Normal inferior vena cava with normal inspiratory collapse consistent with estimated right atrial pre ssure of 5 mmHg. There is a small, generalized pericardial effusion present. CONCLUSIONS -------- 1. The left ventricular size is normal. 2. There is moderate concentric left ventricular hypertrophy. 3. There is severe global hypokinesis of LV . 4. Overall left ventricular systolic function is severely impaired with, an EF between 20 - 25 %. 5. Left ventricular fillimg pressure cannot be estimated due to paced rhythm. 6. LA is severely dilated >40 ml/m2 7. The aortic valve is trileaflet and appears structurally normal. 8. Mild mitral regurgitation is present. 9. Mild tricuspid regurgitation present. 10. There is moderate pulmonary hypertension. 11. The right ventricular systolic pressure, as measured by Doppler, is 60.17mmHg. 12. Trace/mild (physiologic) pulmonic regurgitation. 13. There is a small, generalized pericardial effusion present. SAUSAGE MACHINE OPERATOR: Zena Hill RDCS
[2020-12-25 09:43] LABS: Basophils # (A) 0.02 X 10*3/uL (0.00-0.10); Basophils % (A) 0.2 %; Eosinophils # (A) 0.06 X 10*3/uL (0.04-0.35); Eosinophils % (A) 0.7 %; HCT 28.5 % (39.6-50.0); HGB 9.1 g/dL (13.0-17.0); Lymphocytes # (A) 0.74 X 10*3/uL (0.90-5.00); Lymphocytes % (A) 8.3 %; MCH 30.4 pg (27.0-32.0); MCHC 31.9 g/dL (32.0-37.0); MCV 95.3 fL (80.0-97.0); Monocytes # (A) 0.79 X 10*3/uL (0.20-1.00); Monocytes % (A) 8.9 %; Neutrophils # (A) 7.27 X 10*3/uL (1.80-7.70); Neutrophils % (A) 81.5 %; Platelet Count 51 X 10*3/uL (140-440); RBC 2.99 X 10*6/uL (4.40-5.60); RDW 16.7 % (11.5-14.5); WBC 8.92 X 10*3/uL (4.50-10.00)
[2020-12-25] MEDS: traMADol 50 MG TAB PO PRN ×2 (10:05→20:47)
[2020-12-25 10:22] LABS: Ferritin 481.6 ng/mL (22.0-322.0)
--- NOTE | 2020-12-25 11:54 | P.PN ---
Subjective Patient is admitted for CHF exacerbation patient had an echocardiogram history of of around 20-20%, cardiology will be consulted patient remains on IV Lasix will be continued patient has bilateral pleural effusions. Oncology evaluated the patient for from from cytopenia patient is undergoing workup for DIC, melanoma, hemoptysis. The patient did well level is 1357. Patient platelet count although went up to 51,000. Constitutional: Denied any fatigue denied any fever. Cardio vascular: denied any chest pain, palpitations Gastrointestinal denied any nausea vomiting Pulmonary: Denied any shortness of breath cough Neurologic denied any new focal deficits All inpatient medications were reviewed and appropriate changes in these medications as dictated in the interval history and assessment and plan. Objective - Vital Signs Vital signs: Vital Signs Temp 97.5 F L 12/25/20 07:16 Pulse 70 12/25/20 07:16 Resp 16 12/25/20 07:16 BP 178/94 12/25/20 07:16 Pulse Ox 97 12/25/20 07:16 Intake & Output 12/24/20 12/25/20 12/25/20 18:59 06:59 18:59 Intake Total 240 Output Total 1 801 Balance 239 -801 Weight 68.039 kg 71.8 kg Intake: Oral 240 Output: Urine 800 Straight 800 Stool 1 1 Other: Voiding Method Toilet Toilet # Voids 4 3 # Bowel Movements 1 1 - Exam PHYSICAL EXAMINATION: GENERAL: The patient is alert and oriented x3, not in any acute distress. Well developed, well nourished. HEENT: Pupils are round and equally reacting to light. EOMI. No scleral icterus. No conjunctival pallor. Normocephalic, atraumatic. No pharyngeal erythema. No thyromegaly. CARDIOVASCULAR: S1 and S2 present. No murmurs, rubs, or gallops. She does have mildly elevated JVD PULMONARY: Chest is clear to auscultation, no wheezing or crackles. ABDOMEN: Soft, nontender, nondistended, normoactive bowel sounds. No palpable organomegaly. MUSCULOSKELETAL: No joint swelling or deformity. EXTREMITIES: No cyanosis, clubbing, minimal pedal edema NEUROLOGICAL: Gross neurological examination did not reveal any focal deficits. SKIN: No rashes. - Labs CBC & Chem 7: 12/25/20 06:05 12/24/20 19:12 Labs: Abnormal Lab Results - Last 24 Hours (Table) 12/23/20 12/24/20 12/24/20 Range/Units 15:00 19:12 19:12 RBC 3.20 L (4.30-5.90) m/uL Hgb 10.2 L (13.0-17.5) gm/dL Hct 29.6 L (39.0-53.0) % MCHC (32.0-37.0) g/dL RDW 16.8 H (11.5-15.5) % Plt Count 42 L D (150-450) k/uL Plt Count Comment Absolute Nucleated RBC (0.00-0.00) X 10*3/uL Lymphocytes # 0.9 L (1.0-4.8) k/uL NRBC/100 WBC Diff (0.0-0.0) /100 WBCS Immature Plt Fraction (1.1-6.1) % Retic Count (0.10-1.80) % PT 12.1 H (9.0-12.0) sec INR 1.2 H (<1.2) Fibrinogen 140 L (200-500) mg/dL Chloride (98-107) mmol/L BUN (9-20) mg/dL Creatinine (0.66-1.25) mg/dL Glucose (74-99) mg/dL Ferritin (22.0-322.0) ng/mL Total Bilirubin (0.2-1.3) mg/dL Lactate Dehydrogenase (313-618) U/L Vitamin B12 1357.0 H (200.0-944.0) pg/mL 12/24/20 12/25/20 12/25/20 Range/Units 19:12 06:05 06:05 RBC 2.99 L (4.30-5.90) m/uL Hgb 9.1 L (13.0-17.5) gm/dL Hct 28.5 L (39.0-53.0) % MCHC 31.9 L (32.0-37.0) g/dL RDW 16.7 H (11.5-15.5) % Plt Count 51 L (150-450) k/uL Plt Count Comment DECREASED A Absolute Nucleated RBC 0.02 H (0.00-0.00) X 10*3/uL Lymphocytes # 0.74 L (1.0-4.8) k/uL NRBC/100 WBC Diff 0.2 H (0.0-0.0) /100 WBCS Immature Plt Fraction 9.8 H (1.1-6.1) % Retic Count 4.12 H (0.10-1.80) % PT (9.0-12.0) sec INR (<1.2) Fibrinogen (200-500) mg/dL Chloride 110 H (98-107) mmol/L BUN 30 H (9-20) mg/dL Creatinine 0.61 L (0.66-1.25) mg/dL Glucose 147 H (74-99) mg/dL Ferritin 481.6 H (22.0-322.0) ng/mL Total Bilirubin 2.3 H (0.2-1.3) mg/dL Lactate Dehydrogenase 1643 H (313-618) U/L Vitamin B12 (200.0-944.0) pg/mL Microbiology - Last 24 Hours (Table) 12/23/20 18:35 Blood Culture - Preliminary Blood No Growth after 24 hours 12/23/20 18:16 Blood Culture - Preliminary Blood No Growth after 24 hours Assessment and Plan Plan: -Short of breath: Secondary to congestive heart failure chronic systolic dysfunction he of around 20-25%. Patient has moderate pleural effusion on the right side small pleural effusion on the left side will repeat chest x-ray after diuresis and assess the need for thoracocentesis. 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 Patient is already in aspirin which will be continued and also on statin. Patient mental status appears to be at baseline -Severe thrombocytopenia further evaluation of from cytopenias mentioned above oncology evaluated the patient although thrombocytopenia significantly improved -Chronic anemia without any active bleed. Patient MCVs 90 will obtain a B12 and folate levels -Generalized deconditioning due to advancing age and dementia. Physical therapy and outpatient therapy will evaluate the patient -hypertension -Benign prostatic hypertrophy -Hyperlipidemia -No pharmacological DVT prophylaxis because of severe thrombocytopenia
[2020-12-25 13:01] LABS: Albumin 3.9 g/dL (3.5-5.0); Albumin/Globulin Ratio 1.3; Bilirubin,Unconjugated 1.8 mg/dL (0.0-1.1); Globulin 2.9 g/dL; Total Bilirubin 2.1 mg/dL (0.2-1.3); Total Protein 6.8 g/dL (6.3-8.2)
[2020-12-25 14:48] LABS: Protein, Total 6.5 g/dL (6.2-8.2)
[2020-12-25] MEDS: ATORVASTATIN 10 MG TAB PO SCH (20:47)
[2020-12-26] MEDS: ASPIRIN 81 MG PO SCH ×2 (00:26→19:38)
[2020-12-26] MEDS: FUROSEMIDE 10 MG/ML 4 ML VIAL IV SCH ×2 (08:35→19:38)
[2020-12-26] MEDS: CHOLECALCIFEROL 25 MCG (1000 IU) TABLET PO SCH (08:35)
[2020-12-26] MEDS: METOPROLOL SUCCINATE (ER) 25 MG TAB.ER.24H PO SCH (08:35)
[2020-12-26] MEDS: lisinopriL 5 MG TAB PO SCH (08:35)
[2020-12-26] MEDS: TAMSULOSIN 0.4 MG CAP.ER.24H PO SCH (08:35)
[2020-12-26 09:06] LABS: African American GFR (CKD) 93.7 (60.0-200.0); Anion Gap 5.3 mmol/L (4.00-12.00); BUN/Creat Ratio 37.5 Ratio (12.00-20.00); Calcium 9.5 mg/dL (8.7-10.3); Carbon Dioxide 29.7 mmol/L (21.6-31.8); Non-African American GFR(CKD) 80.9 (60.0-200.0); Potassium 4.2 mmol/L (3.5-5.5)
[2020-12-26 09:46] LABS: Free Kappa Lt Chain Qnt, Serum 2.11 mg/dL (0.33-1.94)
--- NOTE | 2020-12-26 10:02 | XR ---
EXAMINATION TYPE: XR chest 1V DATE OF EXAM: 12/26/2020 COMPARISON: 12/23/2020 HISTORY: Shortness of breath TECHNIQUE: Single frontal view of the chest is obtained. FINDINGS: Heart is enlarged and there is bilateral infiltrate and pleural effusions. Diffuse interst itial pattern. Cardiac device seen. Diffuse osteopenia with arthropathy of the shoulders. No pneumoth orax. IMPRESSION: 1. Diffuse pleural-parenchymal changes are stable correlate for CHF superimposed on a background COPD . Underlying pneumonia not excluded.
[2020-12-26 10:39] LABS: Anisocytosis Slight; Basophils % (A) 0 %; Eosinophils # (A) 0.2 k/uL (0-0.7); Eosinophils % (A) 2 %; HCT 27.7 % (39.0-53.0); HGB 9.4 gm/dL (13.0-17.5); Lymphocytes # (A) 0.9 k/uL (1.0-4.8); Lymphocytes % (A) 10 %; MCHC 33.9 g/dL (31.0-37.0); MCV 94.4 fL (80.0-100.0); Macrocytosis Slight; Mean Platelet Volume 9.2; Monocytes # (A) 0.6 k/uL (0-1.0); Monocytes % (A) 7 %; Neutrophils # (A) 7.7 k/uL (1.3-7.7); Neutrophils % (A) 81 %; RBC 2.93 m/uL (4.30-5.90); RDW 17.8 % (11.5-15.5); WBC 9.5 k/uL (3.8-10.6)
[2020-12-26 10:46] LABS: Platelet Count 76 k/uL (150-450)
[2020-12-26 11:06] LABS: Immunoglobulin M 85.1 mg/dL (40.0-280.0)
[2020-12-26 11:38] LABS: INR 1.1 (<1.2); Prothrombin Time 11.7 sec (9.0-12.0)
--- NOTE | 2020-12-26 14:24 | P.CRDCN ---
History of Present Illness Consult date: 12/26/20 History of present illness: HISTORY OF PRESENT ILLNESS: This is a 85-year-old male with a past medical history significant for hypertension, hyperlipidemia, dementia, and pacemaker insertion. We have been asked to see the patient in consultation for congestive heart failure. Patient examined at the bedside. Patient is awake and alert but confused at the time of examination unable to provide an accurate history. Patient is unable to recall if he follows with a lock master. Upon review of office records, patient does not follow with a lock master at [facility]. Patient was apparently brought to the hospital secondary to shortness of breath. According to the emergency room notes the patient has not been taking his Lasix for approximately 2 weeks. The patient was found to be in congestive heart failure and started on IV Lasix. The time of examination, the patient is resting comfortably in bed. He does not appear to be short of breath. He denies chest pain or pressure. EKG reveals ventricular paced rhythm Chest xray right pleural effusion and associated atelectasis, correlate to exclude pneumonia. Cardiomegaly Laboratory data: WBC 9.5. Hemoglobin 9.4. Platelet count 76. Sodium 145. Potassium 4.2. BUN 30. Creatinine 0.8. BNP 6160. Current home cardiac medications include lisinopril 5 mg daily, Zocor 20mg daily, metoprolol succinate 12.5 mg daily, Lasix 20 mg daily, and aspirin 81 mg daily Echocardiogram completed reveals severe global hypokinesis of LV, ejection fraction 20-25%, mild mitral regurgitation, mild tricuspid regurgitation, and moderate pulmonary hypertension. There is a small generalized pericardial effusion present. REVIEW OF SYSTEMS: At the time of my exam: CONSTITUTIONAL: Denies fever or chills. HEENT: Denies blurred vision, vision changes, or eye pain. Denies hemoptysis CARDIOVASCULAR: Denies chest pain. Denies orthopnea. Denies PND. Denies palpitations RESPIRATORY: Denies shortness of breath. GASTROINTESTINAL: Denies abdominal pain. Denies nausea or vomiting. HEMATOLOGIC: Denies bleeding disorders. GENITOURINARY: Denies any blood in urine. SKIN: Denies pruitis. Denies rash. PHYSICAL EXAM: VITAL SIGNS: Reviewed. GENERAL: Well-developed in no acute distress. HEENT: Head is normocephalic. Pupils are equal, round. Sclerae anicteric. Mucous membranes of the mouth are moist. Neck supple. No JVD or thyromegaly LUNGS: Respirations even and unlabored. Lungs diminished bilaterally HEART: Regular rate and rhythm. S1 and S2 heard. ABDOMEN: Soft. Nondistended. Nontender. EXTREMITIES: Normal range of motion. No clubbing or cyanosis. Peripheral pulses intact. Minimal lower extremity edema NEUROLOGIC: Awake and alert. Oriented x 3. ASSESSMENT: Shortness of breath Acute exacerbation of chronic systolic heart failure, ejection fraction 20-25% Pleural effusions, right greater than left History of biventricular pacemaker, exact details unknown Moderate pulmonary hypertension Hypertension Hyperlipidemia Dementia Small generalized pericardial effusion Thrombocytopenia PLAN: Continue current cardiac medications Continue IV Lasix Monitor kidney function Daily weight Accurate I&O Further recommendations pending patient's course Nurse practitioner note has been reviewed by physician. Signing provider agrees with the documented findings, assessment, and plan of care. 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, per daughter only wants father to receive over counter pain meds no iv or hard medication it makes him very confused History of Any Multi-Drug Resistant Organisms: None Reported Past Surgical History: Pacemaker Past Anesthesia/Blood Transfusion Reactions: No Reported Reaction Type of Cardiac Device: Permanent Pacemaker Device Placement Date:: 12/03/2014 Past Psychological History: No Psychological Hx Reported Additional Psychological History / Comment(s): son lives with him, patient gets meals on wheels Smoking Status: Never smoker Past Alcohol Use History: None Reported Past Drug Use History: None Reported - Past Family History Father Family Medical History: Unable to Obtain Medications and Allergies Home Medications Medication Instructions Recorded Confirmed Type Aspirin EC [Ecotrin Low Dose] 81 mg PO HS 07/04/20 12/23/20 History Metoprolol Succinate [Toprol XL] 12.5 mg PO DAILY 07/04/20 12/23/20 History Simvastatin [Zocor] 20 mg PO HS 07/04/20 12/23/20 History Tamsulosin [Flomax] 0.4 mg PO DAILY 07/04/20 12/23/20 History lisinopriL [Zestril] 5 mg PO DAILY 07/04/20 12/23/20 History Cholecalciferol [Vitamin D3 (25 25 mcg PO DAILY 12/23/20 12/23/20 History Mcg = 1000 Iu)] Furosemide [Lasix] 20 mg PO DAILY 12/23/20 12/23/20 History Prevagen 1 tab PO DAILY 12/23/20 12/23/20 History Allergies Allergy/AdvReac Type Severity Reaction Status Date / Time No Known Allergies Allergy Verified 12/23/20 15:24 Physical Exam Vitals: Vital Signs Temp Pulse Resp BP Pulse Ox 12/26/20 08:51 97.4 F L 70 16 153/81 98 12/26/20 02:11 70 16 12/26/20 02:00 97.8 F 70 16 174/73 98 12/25/20 20:00 97.7 F 70 16 147/78 95 Intake and Output 12/25/20 12/26/20 12/26/20 22:59 06:59 14:59 Output Total 901 1 Balance -901 -1 Output: Urine 900 Stool 1 1 Other: Voiding Method Toilet Toilet # Voids 3 4 Results 12/26/20 06:32 12/26/20 05:41 Coagulation 12/26/20 Range/Units 10:30 PT 11.7 (9.0-12.0) sec APTT 27.0 (22.0-30.0) sec CBC 12/26/20 Range/Units 06:32 WBC 9.5 (3.8-10.6) k/uL RBC 2.93 L (4.30-5.90) m/uL Hgb 9.4 L (13.0-17.5) gm/dL Hct 27.7 L (39.0-53.0) % Plt Count 76 L D (150-450) k/uL Comprehensive Metabolic Panel 12/26/20 Range/Units 05:41 Sodium 145 (135-145) mmol/L Potassium 4.2 (3.5-5.5) mmol/L Chloride 110 H (96-109) mmol/L Carbon Dioxide 29.7 (21.6-31.8) mmol/L BUN 30.0 H (9.0-27.0) mg/dL Creatinine 0.8 (0.6-1.5) mg/dL Glucose 99 (70-110) mg/dL Calcium 9.5 (8.7-10.3) mg/dL Current Medications Generic Name Dose Route Start Last Admin Trade Name Freq PRN Reason Stop Dose Admin Acetaminophen 650 mg 12/23/20 17:35 Acetaminophen Tab 325 Mg Tab PO Q6HR PRN Mild Pain or Fever > 100.5 Aspirin 81 mg 12/24/20 21:00 12/26/20 00:26 Aspirin 81 Mg PO Not Given HS YAMIL Atorvastatin Calcium 10 mg 12/24/20 21:00 12/25/20 20:47 Atorvastatin 10 Mg Tab PO 10 mg HS YAMIL Administration Cholecalciferol 25 mcg 12/25/20 09:00 12/26/20 08:35 Cholecalciferol 25 Mcg (1000 Iu) Tablet PO 25 mcg DAILY YAMIL Administration Furosemide 40 mg 12/24/20 21:00 12/26/20 08:35 Furosemide 10 Mg/Ml 4 Ml Vial IV 40 mg Q12HR YAMIL Administration Lisinopril 5 mg 12/25/20 09:00 12/26/20 08:35 Lisinopril 5 Mg Tab PO 5 mg DAILY YAMIL Administration Metoprolol Succinate 12.5 mg 12/25/20 09:00 12/26/20 08:35 Metoprolol Succinate (Er) 25 Mg Tab.Er.24h PO 12.5 mg DAILY YAMIL Administration Naloxone HCl 0.2 mg 12/23/20 17:35 Naloxone 0.4 Mg/Ml 1 Ml Vial IV Q2M PRN Opioid Reversal Ondansetron HCl 4 mg 12/23/20 17:35 Ondansetron 4 Mg/2 Ml Vial IVP Q8HR PRN Nausea And Vomiting Tamsulosin HCl 0.4 mg 12/25/20 09:00 12/26/20 08:35 Tamsulosin 0.4 Mg Cap.Er.24h PO 0.4 mg DAILY YAMIL Administration Tramadol HCl 50 mg 12/23/20 17:35 12/25/20 20:47 Tramadol 50 Mg Tab PO 50 mg Q6H PRN Administration Moderate Pain Intake and Output 12/25/20 12/26/20 12/26/20 22:59 06:59 14:59 Output Total 901 1 Balance -901 -1 Output: Urine 900 Stool 1 1 Other: Voiding Method Toilet Toilet # Voids 3 4 12/26/20 06:32 12/26/20 05:41
--- NOTE | 2020-12-26 15:05 | P.PN ---
Subjective Progress Note Date: 12/26/20 Principal diagnosis: thrombocytopenia In f/u today pt states possible hematuria yesterday, no nose or gum bleeding, he does bruise easily on his hands and arms, no pain today Objective - Vital Signs Vital signs: Vital Signs Temp 97.4 F L 12/26/20 08:51 Pulse 70 12/26/20 08:51 Resp 16 12/26/20 08:51 BP 153/81 12/26/20 08:51 Pulse Ox 98 12/26/20 08:51 Intake & Output 12/25/20 12/26/20 12/26/20 18:59 06:59 18:59 Output Total 1701 2 Balance -1701 -2 Output: Urine 1700 Straight 800 Stool 1 2 Other: Voiding Method Toilet Toilet # Voids 3 - Constitutional General appearance: Present: average body habitus, cooperative, no acute distress - EENT Eyes: Present: anicteric sclerae, EOMI ENT: Present: hard of hearing, normal oropharynx - Respiratory Respiratory: bilateral: CTA - Cardiovascular Rhythm: regular Heart sounds: normal: S1, S2 Abnormal Heart Sounds: Absent: systolic murmur, diastolic murmur, rub, S3 Gallop, S4 Gallop, click, other - Peripheral edema leg Peripheral Edema: bilateral: None - Gastrointestinal General gastrointestinal: Present: normal bowel sounds, soft - Neurologic Neurologic: Present: CNII-XII intact - Musculoskeletal Musculoskeletal: Present: strength equal bilaterally - Psychiatric Psychiatric: Present: A&O x's 3, appropriate affect - Labs CBC & Chem 7: 12/26/20 06:32 12/26/20 05:41 Labs: Abnormal Lab Results - Last 24 Hours (Table) 12/25/20 12/25/20 12/26/20 Range/Units 06:05 06:05 05:41 Chloride 110 H (96-109) mmol/L BUN 30.0 H (9.0-27.0) mg/dL BUN/Creatinine Ratio 37.50 H (12.00-20.00) Ratio Total Bilirubin 2.1 H (0.2-1.3) mg/dL Unconjugated Bilirubin 1.8 H (0.0-1.1) mg/dL Free [place] LC, Quant 2.11 H (0.33-1.94) mg/dL Microbiology - Last 24 Hours (Table) 12/23/20 18:35 Blood Culture - Preliminary Blood No Growth after 48 hours 12/23/20 18:16 Blood Culture - Preliminary Blood No Growth after 48 hours Assessment and Plan (1) Thrombocytopenia Narrative/Plan: Work up continues for underlying cause. Platelets are 71,000 today. Okay to continue with aspirin. Platelets are improving as patient's condition improves. Current Visit: Yes Status: Acute Priority: High Code(s): D69.6 - THROMBOCYTOPENIA, UNSPECIFIED SNOMED Code(s): 519167790 Plan: Labs are suspicious for a low grade DIC. No active bleeding, CBC has been stable, hemoglobin is stable. Coags and fibrinogen in AM. No transfusions needed today. VSS, PE exam stable. Doctor attests: I performed a history and physical examination of this patient, developed impression and plan of care. Discussed with dictator. I agree with dictators note, documented as a scribe.
--- NOTE | 2020-12-26 15:20 | P.PN ---
Subjective Progress Note Date: 12/26/20 Patient is admitted for CHF exacerbation patient had an echocardiogram history of of around 20-20%, cardiology will be consulted patient remains on IV Lasix will be continued patient has bilateral pleural effusions. Oncology evaluated the patient for from from thrombocytopenia patient is undergoing workup for DIC, melanoma, hemoptysis. The patient did well level is 1357. Patient platelet count although went up to 51,000. Constitutional: Denied any fatigue denied any fever. Cardio vascular: denied any chest pain, palpitations Gastrointestinal denied any nausea vomiting Pulmonary: Denied any shortness of breath cough Neurologic denied any new focal deficits All inpatient medications were reviewed and appropriate changes in these medications as dictated in the interval history and assessment and plan. 12/26/2020 Patient is seen and evaluated and follow-up continues to be short of breath st ating he does not feel well and is very weak. PT/OT to evaluate the patient. Patient has been on IV Lasix and will continue and cardiology has been consulted and pending. Hematology/oncology also following and platelets are 76 today with a hemoglobin of 9.4 with no active bleeding noted. Sodium is 145 with a potassium of 4.2 and current creatinine is 0.8. Will need to discuss with the family about discharge planning after evaluation from PT/OT therapy. Review of systems: Constitutional: Reports fatigue, no reports of fever, or chills Cardiovascular: No reports of chest pain or palpitations Respiratory: Reports shortness of breath GI: No reports of nausea, vomiting, or diarrhea : No reports of dysuria or retention Neurovascular: reports generalized weakness All medications have been reviewed Objective - Vital Signs Vital signs: Vital Signs Temp 97.4 F L 12/26/20 08:51 Pulse 70 12/26/20 08:51 Resp 16 12/26/20 08:51 BP 153/81 12/26/20 08:51 Pulse Ox 98 12/26/20 08:51 Intake & Output 12/25/20 12/26/20 12/26/20 18:59 06:59 18:59 Output Total 1701 2 Balance -1701 -2 Output: Urine 1700 Straight 800 Stool 1 2 Other: Voiding Method Toilet Toilet # Voids 3 4 - Exam GENERAL: The patient is alert and oriented x3, not in any acute distress. Well developed, well nourished. HEENT: Pupils are round and equally reacting to light. EOMI. No scleral icterus. No conjunctival pallor. Normocephalic, atraumatic. No pharyngeal erythema. No thyromegaly. CARDIOVASCULAR: S1 and S2 present. No murmurs, rubs, or gallops. Patient does have mildly elevated JVD PULMONARY: Diminished breath sounds bilaterally with some scattered rhonchi noted ABDOMEN: Soft, nontender, nondistended, normoactive bowel sounds. No palpable organomegaly. MUSCULOSKELETAL: No joint swelling or deformity. EXTREMITIES: No cyanosis, clubbing, minimal pedal edema NEUROLOGICAL: Gross neurological examination did not reveal any focal deficits. Diffusely weak SKIN: No rashes. - Labs CBC & Chem 7: 12/26/20 06:32 12/26/20 05:41 Labs: Abnormal Lab Results - Last 24 Hours (Table) 12/25/20 12/25/20 12/26/20 Range/Units 06:05 06:05 05:41 RBC (4.30-5.90) m/uL Hgb (13.0-17.5) gm/dL Hct (39.0-53.0) % RDW (11.5-15.5) % Plt Count (150-450) k/uL Lymphocytes # (1.0-4.8) k/uL Chloride 110 H (96-109) mmol/L BUN 30.0 H (9.0-27.0) mg/dL BUN/Creatinine Ratio 37.50 H (12.00-20.00) Ratio Total Bilirubin 2.1 H (0.2-1.3) mg/dL Unconjugated Bilirubin 1.8 H (0.0-1.1) mg/dL Free [place] LC, Quant 2.11 H (0.33-1.94) mg/dL 12/26/20 Range/Units 06:32 RBC 2.93 L (4.30-5.90) m/uL Hgb 9.4 L (13.0-17.5) gm/dL Hct 27.7 L (39.0-53.0) % RDW 17.8 H (11.5-15.5) % Plt Count 76 L D (150-450) k/uL Lymphocytes # 0.9 L (1.0-4.8) k/uL Chloride (96-109) mmol/L BUN (9.0-27.0) mg/dL BUN/Creatinine Ratio (12.00-20.00) Ratio Total Bilirubin (0.2-1.3) mg/dL Unconjugated Bilirubin (0.0-1.1) mg/dL Free [place] LC, Quant (0.33-1.94) mg/dL Microbiology - Last 24 Hours (Table) 12/23/20 18:35 Blood Culture - Preliminary Blood No Growth after 48 hours 12/23/20 18:16 Blood Culture - Preliminary Blood No Growth after 48 hours Assessment and Plan Assessment: -Short of breath: Secondary to congestive heart failure chronic systolic dysfunction of around 20-25%. Patient has moderate pleural effusion on the right side small pleural effusion on the left side. Repeat chest x-ray shows diffuse pleural parenchymal changes that are stable with CHF superimposed on a background of COPD with continued bilateral infiltrates and pleural effusions. Patient to continue on IV Lasix at this time. 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 Patient is already in aspirin which will be continued and also on statin. Patient mental status appears to be at baseline -Severe thrombocytopenia further evaluation of from cytopenias mentioned above oncology evaluated the patient although thrombocytopenia significantly improved, current platelet count is 76 and hematology following -Chronic anemia without any active bleed. Patient MCVs 90 will obtain a B12 and folate levels -Generalized deconditioning due to advancing age and dementia. PT/OT to evaluate the patient and will discuss with family about possible ECF for rehab -hypertension -Benign prostatic hypertrophy -Hyperlipidemia -No pharmacological DVT prophylaxis because of severe thrombocytopenia Plan: Continue with current medications and continue with IV Lasix. Chest x-ray shows continued pleural effusions with bilateral infiltrates. PT/OT to evaluate the patient and will need to discuss with family about the possibility of ECF for rehab or increased care in the home. Hematology following and further workup is in process. Will repeat a.m. labs and continue to monitor closely.
[2020-12-26] MEDS: ATORVASTATIN 10 MG TAB PO SCH (19:38)
[2020-12-27 06:39] LABS: Anisocytosis Slight; Basophils % (A) 0 %; Eosinophils # (A) 0.3 k/uL (0-0.7); Eosinophils % (A) 4 %; HCT 27.1 % (39.0-53.0); HGB 9.3 gm/dL (13.0-17.5); Lymphocytes # (A) 0.8 k/uL (1.0-4.8); Lymphocytes % (A) 10 %; MCHC 34.3 g/dL (31.0-37.0); MCV 93.3 fL (80.0-100.0); Monocytes # (A) 0.6 k/uL (0-1.0); Monocytes % (A) 7 %; Neutrophils # (A) 6.7 k/uL (1.3-7.7); Neutrophils % (A) 78 %; RDW 17.6 % (11.5-15.5); WBC 8.6 k/uL (3.8-10.6)
[2020-12-27 06:49] LABS: INR 1.1 (<1.2); Prothrombin Time 11.6 sec (9.0-12.0)
[2020-12-27 07:24] VITALS: PULSE 70; RESP 16
[2020-12-27 07:25] LABS: Platelet Count 134 k/uL (150-450)
[2020-12-27] MEDS: CHOLECALCIFEROL 25 MCG (1000 IU) TABLET PO SCH (08:41)
[2020-12-27] MEDS: lisinopriL 5 MG TAB PO SCH (08:41)
[2020-12-27] MEDS: TAMSULOSIN 0.4 MG CAP.ER.24H PO SCH (08:41)
[2020-12-27] MEDS: METOPROLOL SUCCINATE (ER) 25 MG TAB.ER.24H PO SCH (08:41)
[2020-12-27] MEDS: FUROSEMIDE 10 MG/ML 4 ML VIAL IV SCH (08:43)
[2020-12-27] MEDS ORDERED: METOPROLOL SUCCINATE (ER) 25 MG TAB.ER.24H PO STA (09:16)
[2020-12-27 10:52] LABS: African American GFR (CKD) 93.7 (60.0-200.0); Anion Gap 9.2 mmol/L (4.00-12.00); BUN/Creat Ratio 42.5 Ratio (12.00-20.00); Calcium 9.2 mg/dL (8.7-10.3); Carbon Dioxide 27.8 mmol/L (21.6-31.8); Magnesium 1.9 mg/dL (1.5-2.4); Non-African American GFR(CKD) 80.9 (60.0-200.0); Potassium 3.7 mmol/L (3.5-5.5)
[2020-12-27 14:28] VITALS: BP 148/74; TEMP 97.6
--- NOTE | 2020-12-27 14:34 | P.PN ---
Subjective Progress Note Date: 12/27/20 HISTORY OF PRESENT ILLNESS: 12/26/2020 This is a 85-year-old male with a past medical history significant for hypertension, hyperlipidemia, dementia, and pacemaker insertion. We have been asked to see the patient in consultation for congestive heart failure. Patient examined at the bedside. Patient is awake and alert but confused at the time of examination unable to provide an accurate history. Patient is unable to recall if he follows with a shirt sorter. Upon review of office records, patient does not follow with a shirt sorter at [facility]. Patient was apparently brought to the hospital secondary to shortness of breath. According to the emergency room notes the patient has not been taking his Lasix for approximately 2 weeks. The patient was found to be in congestive heart failure and started on IV Lasix. The time of examination, the patient is resting comfortably in bed. He does not appear to be short of breath. He denies chest pain or pressure. EKG reveals ventricular paced rhythm Chest xray right pleural effusion and associated atelectasis, correlate to exclude pneumonia. Cardiomegaly Laboratory data: WBC 9.5. Hemoglobin 9.4. Platelet count 76. Sodium 145. Potassium 4.2. BUN 30. Creatinine 0.8. BNP 6160. Current home cardiac medications include lisinopril 5 mg daily, Zocor 20mg daily, metoprolol succinate 12.5 mg daily, Lasix 20 mg daily, and aspirin 81 mg daily Echocardiogram completed reveals severe global hypokinesis of LV, ejection fraction 20-25%, mild mitral regurgitation, mild tricuspid regurgitation, and moderate pulmonary hypertension. There is a small generalized pericardial effusion present. 12/27/2020 Patient examined this morning at the bedside. Patient remains confused. He remains on IV Lasix. He denies chest pain or pressure. He denies shortness of breath. PHYSICAL EXAM: VITAL SIGNS: Reviewed. GENERAL: Well-developed in no acute distress. HEENT: Head is normocephalic. Pupils are equal, round. Sclerae anicteric. Mucous membranes of the mouth are moist. Neck supple. No JVD or thyromegaly LUNGS: Respirations even and unlabored. Lungs diminished bilaterally HEART: Regular rate and rhythm. S1 and S2 heard. ABDOMEN: Soft. Nondistended. Nontender. EXTREMITIES: Normal range of motion. No clubbing or cyanosis. Peripheral pulses intact. No lower extremity edema NEUROLOGIC: Awake and alert. Oriented x 3. ASSESSMENT: Shortness of breath Acute exacerbation of chronic systolic heart failure, ejection fraction 20-25% Pleural effusions, right greater than left History of biventricular pacemaker, exact details unknown Moderate pulmonary hypertension Hypertension Hyperlipidemia Dementia Small generalized pericardial effusion Thrombocytopenia PLAN: Continue current cardiac medications Discontinue IV Lasix. Transition to oral Lasix 40 mg daily Monitor kidney function Daily weight Accurate I&O Increase metoprolol succinate to 25 mg daily Patient is stable for discharge from a cardiac point. We will sign off. Please reconsult if needed. Nurse practitioner note has been reviewed by physician. Signing provider agrees with the documented findings, assessment, and plan of care. Objective - Vital Signs Vital signs: Vital Signs Temp 97.6 F 12/27/20 14:00 Pulse 70 12/27/20 14:00 Resp 16 12/27/20 14:00 BP 148/74 12/27/20 14:00 Pulse Ox 96 12/27/20 14:00 Intake & Output 12/26/20 12/27/20 12/27/20 18:59 06:59 18:59 Weight 69.3 kg 67.6 kg Other: Voiding Method Toilet Toilet # Voids 3 - Labs CBC & Chem 7: 12/27/20 05:24 12/27/20 05:24 Labs: Abnormal Lab Results - Last 24 Hours (Table) 12/27/20 12/27/20 12/27/20 Range/Units 05:24 05:24 05:24 RBC 2.90 L (4.30-5.90) m/uL Hgb 9.3 L (13.0-17.5) gm/dL Hct 27.1 L (39.0-53.0) % RDW 17.6 H (11.5-15.5) % Plt Count 134 L D (150-450) k/uL Lymphocytes # 0.8 L (1.0-4.8) k/uL Fibrinogen 189 L (200-500) mg/dL BUN 34.0 H (9.0-27.0) mg/dL BUN/Creatinine Ratio 42.50 H (12.00-20.00) Ratio Microbiology - Last 24 Hours (Table) 12/23/20 18:35 Blood Culture - Preliminary Blood No Growth after 72 hours 04/02/21 18:16 Blood Culture - Preliminary Blood No Growth after 72 hours
--- NOTE | 2020-12-27 14:35 | P.PN ---
Subjective Progress Note Date: 12/27/20 Principal diagnosis: thrombocytopenia In f/u today pt ambulated in the caro with physical therapy and a walker. He was able to bend over and put on his socks independently. He was able to lay down and adjust himself in the bed independently. Patient states he feels pretty good today. He denies shortness of breath, dizziness, chest pain, bleeding. Objective - Vital Signs Vital signs: Vital Signs Temp 97.6 F 12/27/20 14:00 Pulse 70 12/27/20 14:00 Resp 16 12/27/20 14:00 BP 148/74 12/27/20 14:00 Pulse Ox 96 12/27/20 14:00 Intake & Output 12/26/20 12/27/20 12/27/20 18:59 06:59 18:59 Weight 69.3 kg 67.6 kg Other: Voiding Method Toilet Toilet # Voids 3 - Constitutional General appearance: Present: cooperative, no acute distress, thin - EENT Eyes: Present: anicteric sclerae, EOMI, normal appearance - Respiratory Respiratory: bilateral: CTA - Cardiovascular Rhythm: regular Heart sounds: normal: S1, S2 Abnormal Heart Sounds: Absent: systolic murmur, diastolic murmur, rub, S3 Gallop, S4 Gallop, click, other - Peripheral edema leg Peripheral Edema: bilateral: None - Gastrointestinal General gastrointestinal: Present: normal bowel sounds, soft - Integumentary Integumentary Comment(s): Bruising, skin tear, thin, aged skin - Neurologic Neurologic: Present: CNII-XII intact - Musculoskeletal Musculoskeletal: Present: strength equal bilaterally - Psychiatric Psychiatric: Present: A&O x's 3, appropriate affect, intact judgment & insight - Labs CBC & Chem 7: 12/27/20 05:24 12/27/20 05:24 Labs: Abnormal Lab Results - Last 24 Hours (Table) 12/27/20 12/27/20 12/27/20 Range/Units 05:24 05:24 05:24 RBC 2.90 L (4.30-5.90) m/uL Hgb 9.3 L (13.0-17.5) gm/dL Hct 27.1 L (39.0-53.0) % RDW 17.6 H (11.5-15.5) % Plt Count 134 L D (150-450) k/uL Lymphocytes # 0.8 L (1.0-4.8) k/uL Fibrinogen 189 L (200-500) mg/dL BUN 34.0 H (9.0-27.0) mg/dL BUN/Creatinine Ratio 42.50 H (12.00-20.00) Ratio Microbiology - Last 24 Hours (Table) 12/23/20 18:35 Blood Culture - Preliminary Blood No Growth after 72 hours 12/23/20 18:16 Blood Culture - Preliminary Blood No Growth after 72 hours Assessment and Plan (1) Thrombocytopenia Narrative/Plan: Patient's platelets are up to 134,000 today. Patient's counts have recovered spontaneously. Current Visit: Yes Status: Acute Priority: High Code(s): D69.6 - THROMBOCYTOPENIA, UNSPECIFIED SNOMED Code(s): 260831265 Plan: Labs are suspicious for a low grade DIC. No active bleeding, CBC has been stable, hemoglobin is stable. Coags and fibrinogen today are normal No transfusions were needed for this hospitalization Is not completely clear why patient had what was highly suspicious for a low- grade DIC. No infection source was identified. He is spontaneously recovering. Question if this was a DIC secondary to congestive liver/congestive heart failure. Patient is doing much better. Nothing further from a Hematology standpoint at this time. Doctor attests: I performed a history and physical examination of this patient, developed impression and plan of care. Discussed with dictator. I agree with dictators note, documented as a scribe.
--- NOTE | 2020-12-27 16:51 | P.DS ---
Providers Date of admission: 12/23/20 17:31 Expected date of discharge: 12/27/20 Attending physician: Dutch Musa MD Consults: 12/24/20 14:57 Consult Physician Routine Consulting Provider: Fidel Ferris Consult Reason/Comments: Thrombocytopenia Do you want consulting provider notified?: Yes Primary care physician: Tamiko Cooper Hospital Course: Final diagnosis -Short of breath: Secondary to congestive heart failure chronic systolic dysfunction of around 20-25%. Patient has moderate pleural effusion on the right side small pleural effusion on the left side. 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 -Generalized deconditioning due to advancing age and dementia -hypertension -Benign prostatic hypertrophy -Hyperlipidemia -No pharmacological DVT prophylaxis because of severe thrombocytopenia Discharge disposition Patient is being discharged in a stable condition with guarded prognosis to home. Patient will follow-up with Dr. Stephanie Cooper in the outpatient setting upon discharge. Patient is also to follow-up with cardiology in the next few weeks. Total time taken is greater than 35 minutes. Hospital course Patient is admitted for CHF exacerbation patient had an echocardiogram history of of around 20-20%, cardiology will be consulted patient remains on IV Lasix will be continued patient has bilateral pleural effusions. Oncology evaluated the patient for from from thrombocytopenia patient is undergoing workup for DIC, melanoma, hemoptysis. The patient did well level is 1357. Patient platelet count although went up to 51,000. Constitutional: Denied any fatigue denied any fever. Cardio vascular: denied any chest pain, palpitations Gastrointestinal denied any nausea vomiting Pulmonary: Denied any shortness of breath cough Neurologic denied any new focal deficits All inpatient medications were reviewed and appropriate changes in these medications as dictated in the interval history and assessment and plan. 12/26/2020 Patient is seen and evaluated and follow-up continues to be short of breath stating he does not feel well and is very weak. PT/OT to evaluate the patient. Patient has been on IV Lasix and will continue and cardiology has been consulted and pending. Hematology/oncology also following and platelets are 76 today with a hemoglobin of 9.4 with no active bleeding noted. Sodium is 145 with a potassium of 4.2 and current creatinine is 0.8. Will need to discuss with the family about discharge planning after evaluation from PT/OT therapy. 12/27/2020 Patient is seen and evaluated this morning no acute overnight issues. Patient has been seen and evaluated by cardiology recommending outpatient follow-up and continue with Lasix 40 mg daily and metoprolol has been increased to 25 mg daily. Currently no reports of chest pain, worsening shortness of breath, or palpitations. Patient is afebrile. No reports of nausea or vomiting and patient is tolerating diet. Patient will be discharged home today. Patient and family to discuss increased supervision at the home or possible placement in the near future if requiring more assistance. On exam vital signs are stable. Cardio S1, S2 are muffled. Respiratory system shows diminished breath sounds at the bases with no wheezing or rhonchi noted. Abdomen is soft and nontender. Nervous system shows focal deficits. Please refer to medication reconciliation sheet for a list of medications. Patient Condition at Discharge: Fair Plan - Discharge Summary Discharge Rx Participant: Yes New Discharge Prescriptions: New Furosemide [Lasix] 40 mg PO DAILY 30 Days #30 tab Metoprolol Succinate (ER) [Toprol XL] 25 mg PO DAILY 30 Days #30 tab.er.24h Acetaminophen Tab [Tylenol] 650 mg PO Q6HR PRN tab PRN Reason: Mild Pain Or Fever > 100.5 Continue Simvastatin [Zocor] 20 mg PO HS Aspirin EC [Ecotrin Low Dose] 81 mg PO HS lisinopriL [Zestril] 5 mg PO DAILY Tamsulosin [Flomax] 0.4 mg PO DAILY Cholecalciferol [Vitamin D3 (25 Mcg = 1000 Iu)] 25 mcg PO DAILY Prevagen 1 tab PO DAILY Discontinued Metoprolol Succinate [Toprol XL] 12.5 mg PO DAILY Furosemide [Lasix] 20 mg PO DAILY Discharge Medication List Aspirin EC [Ecotrin Low Dose] 81 mg PO HS 07/04/20 [History] Simvastatin [Zocor] 20 mg PO HS 07/04/20 [History] Tamsulosin [Flomax] 0.4 mg PO DAILY 07/04/20 [History] lisinopriL [Zestril] 5 mg PO DAILY 07/04/20 [History] Cholecalciferol [Vitamin D3 (25 Mcg = 1000 Iu)] 25 mcg PO DAILY 12/23/20 [History] Prevagen 1 tab PO DAILY 12/23/20 [History] Acetaminophen Tab [Tylenol] 650 mg PO Q6HR PRN tab 12/27/20 [Rx] Furosemide [Lasix] 40 mg PO DAILY 30 Days #30 tab 12/27/20 [Rx] Metoprolol Succinate (ER) [Toprol XL] 25 mg PO DAILY 30 Days #30 tab.er.24h 12/27/20 [Rx] Follow up Appointment(s)/Referral(s): Tamiko Cooper MD [Primary Care Provider] - 1-2 days (Please call the office to schedule your appointment.) Patient Instructions/Handouts: Pleural Effusion (DC) Activity/Diet/Wound Care/Special Instructions: Activity Limited until follow-up follow up with hematology outpatient Follow-up with primary care provider upon discharge Continue current diet Follow-up with cardiology outpatient Discharge Disposition: HOME SELF-CARE
[2020-12-28] MEDS ORDERED: FUROSEMIDE 40 MG TAB PO SCH (09:00)
[2020-12-28] MEDS ORDERED: METOPROLOL SUCCINATE (ER) 25 MG TAB.ER.24H PO SCH (09:00)
[2020-12-28 13:52] LABS: Albumin 3.76 g/dL (3.80-4.90); Gamma Globulin 1.09 g/dL (0.70-1.50)
== END 2020-12-27 17:13 | disposition home or self-care (01) | DRG 292 ==
LOC: EC 11:53 → 4SSUR 17:31 → 1SOBS 12-24 01:22 → 6NMEDSUR 12-24 17:13
PROVIDERS: ADMIT Internal Medicine; ATTEND Internal Medicine
DX: I11.0 Hypertensive heart disease with heart failure (principal); J98.11 Atelectasis; I31.3 Pericardial effusion (noninflammatory); I50.23 Acute on chronic systolic (congestive) heart failure; E78.5 Hyperlipidemia, unspecified; D69.6 Thrombocytopenia, unspecified; Z20.822 Contact with and (suspected) exposure to COVID-19; R79.1 Abnormal coagulation profile; H54.62 Unqualified visual loss, left eye, normal vision right eye; D64.9 Anemia, unspecified; N40.0 Benign prostatic hyperplasia without lower urinary tract symptoms; Z95.0 Presence of cardiac pacemaker; T50.1X6A Underdosing of loop [high-ceiling] diuretics, initial encounter; I27.20 Pulmonary hypertension, unspecified; F01.50 Vascular dementia, unspecified severity, without behavioral disturbance, psychotic disturbance, mood disturbance, and anxiety; J44.9 Chronic obstructive pulmonary disease, unspecified; Z85.828 Personal history of other malignant neoplasm of skin
CPT/HCPCS: 36415; 70450; 71045; 71046; 71275; 80048; 80053; 80076; 81001; 82140; 82607; 82728; 82746; 82747; 82784; 83010; 83540; 83550; 83615; 83735; 83880; 83883; 83921; 84165; 84484; 85025; 85045; 85379; 85384; 85610; 85730; 86038; 86334; 86431; 87040; 87635; 93005; 93306; 99285

== ENCOUNTER 2021-08-07 15:55 | Emergency (ER) | payer MEDICARE ==
[2021-08-07 17:38] VITALS: PULSE 70
--- NOTE | 2021-08-07 18:33 | CT ---
EXAMINATION TYPE: CT brain cspine wo con DATE OF EXAM: 08/07/2021 COMPARISON: December 23, 2020 HISTORY: Fall, swelling to nose and bruising near eyes. Abrasion to top right side of head. CT DLP: 1106.6 mGycm Automated exposure control for dose reduction was used. There is cerebral cortical atrophy. There is no mass effect nor midline shift. There is no evidence o f intracranial hemorrhage. The calvarium is intact. There is some scalp soft tissue swelling on the r ight frontal and temporal region. Cervical vertebra have normal alignment. There is degenerative disc space narrowing at C5-6 and C6-7 with spurring. There is no compression fracture. There is multilevel mild hypertrophic facet arthropa thy. There is normal aeration of the mastoid sinuses. The skull base is intact. IMPRESSION: Mild multilevel cervical spondylotic changes. No fracture. Cerebral atrophy. No acute intracranial abnormality. Scalp soft tissue swelling. Brain is not changed compared to old exam.
--- NOTE | 2021-08-07 18:38 | CT ---
EXAMINATION TYPE: CT facial bones wo con DATE OF EXAM: 08/07/2021 COMPARISON: None HISTORY: Fall, swelling to nose and bruising near eyes. Abrasion to top right side of head. CT DLP: mGycm Automated exposure control for dose reduction was used. Images obtained from the bottom of the mandible to the top of the frontal sinuses without contrast. Mandibular ring is intact. There is some motion artifact. Zygomatic arches appear intact. Maxilla is intact. Nasal bone appears intact. There is no evidence of retro-orbital mass. There is no evidence o f orbital blowout fracture. There is fairly normal aeration of the paranasal sinuses. There is right frontal and temporal scalp soft tissue swelling. IMPRESSION: No fracture seen. Right-sided soft tissue swelling.
[2021-08-07 20:41] LABS: Basophils # (A) 0.1 k/uL (0-0.2); Basophils % (A) 1 %; Eosinophils # (A) 0.2 k/uL (0-0.7); Eosinophils % (A) 3 %; HCT 38.9 % (39.0-53.0); HGB 12.7 gm/dL (13.0-17.5); Lymphocytes # (A) 0.9 k/uL (1.0-4.8); Lymphocytes % (A) 13 %; MCH 30.8 pg (25.0-35.0); MCHC 32.5 g/dL (31.0-37.0); MCV 94.6 fL (80.0-100.0); Mean Platelet Volume 7.6; Monocytes # (A) 0.4 k/uL (0-1.0); Monocytes % (A) 6 %; Neutrophils # (A) 5.3 k/uL (1.3-7.7); Neutrophils % (A) 75 %; Platelet Count 210 k/uL (150-450); RBC 4.12 m/uL (4.30-5.90); RDW 14.5 % (11.5-15.5)
[2021-08-07 20:54] LABS: ALT 14 U/L (4-49); AST 21 U/L (17-59); African American GFR (CKD) >90 (>60 ml/min/1.73 sqM); Albumin 4.4 g/dL (3.5-5.0); Alkaline Phosphatase 138 U/L (38-126); Anion Gap 10 mmol/L; Blood Urea Nitrogen 24 mg/dL (9-20); Calcium 9.5 mg/dL (8.4-10.2); Carbon Dioxide 24 mmol/L (22-30); Chloride 106 mmol/L (98-107); Glucose 104 mg/dL (74-99); Magnesium 2.3 mg/dL (1.6-2.3); Non-African American GFR(CKD) 78 (>60 ml/min/1.73 sqM); Potassium 4.4 mmol/L (3.5-5.1); Sodium 140 mmol/L (137-145); Total Bilirubin 0.9 mg/dL (0.2-1.3); Total Protein 7.7 g/dL (6.3-8.2)
--- NOTE | 2021-08-07 20:57 | XR ---
EXAMINATION TYPE: XR chest 2V DATE OF EXAM: 08/07/2021 COMPARISON: 12/26/2020 HISTORY: Short of breath weakness TECHNIQUE: 2 views FINDINGS: Heart is enlarged. There is mild pulmonary congestion. There is blunting of the right costo phrenic angle. There is left axillary pacemaker. There are chest leads. IMPRESSION: There is some congestive heart failure with right pleural effusion. No change.
--- NOTE | 2021-08-07 21:36 | ED ---
Fall HPI - General Chief Complaint: Fall Stated Complaint: Mental Health, Fall on head Time Seen by Provider: 08/07/21 20:01 Source: patient, family, RN notes reviewed, old records reviewed Mode of arrival: ambulatory Limitations: no limitations - History of Present Illness Initial Comments: Patient is an 86-year-old male with history of heart failure, hypertension, some mild dementia, presenting to emergency Department with his daughter after he fell 2 days ago. Patient does live in an assisted living facility, patient's daughter also works in the same facility. There was no loss of consciousness with this fall, he is not on blood thinners. He is not sure what he might have hit his head on. The daughter states that she was told that her father fell a couple days ago but it was very minor. The daughter went and visited her dad today and noticed that he had sniffed and swelling of his right forehead, and abrasion and facial swelling and bruising so brought him in for evaluation. Daughter states that he also seems a little bit more confused than normal, he does have history of dementia although. Patient denies any significant compla ints today other than some mild right-sided facial pain. Denies any chest pain or short of breath, no recent cough or chills, no abdominal pain, no nausea or vomiting. The daughter stated they check his urine 2 days ago, no signs of infection. He does not get frequent UTIs. She is concerned that something else may be going on. There are no further complaints. His vital signs are stable upon arrival. - Related Data Home Medications Medication Instructions Recorded Confirmed Aspirin EC [Ecotrin Low Dose] 81 mg PO HS 07/04/20 12/23/20 Simvastatin [Zocor] 20 mg PO HS 07/04/20 12/23/20 Tamsulosin [Flomax] 0.4 mg PO DAILY 07/04/20 12/23/20 lisinopriL [Zestril] 5 mg PO DAILY 07/04/20 12/23/20 Cholecalciferol [Vitamin D3 (25 25 mcg PO DAILY 12/23/20 12/23/20 Mcg = 1000 Iu)] Prevagen 1 tab PO DAILY 12/23/20 12/23/20 Previous Rx's Medication Instructions Recorded Acetaminophen Tab [Tylenol] 650 mg PO Q6HR PRN tab 12/27/20 Furosemide [Lasix] 40 mg PO DAILY 30 Days #30 tab 12/27/20 Metoprolol Succinate (ER) [Toprol 25 mg PO DAILY 30 Days #30 12/27/20 XL] tab.er.24h Allergies Allergy/AdvReac Type Severity Reaction Status Date / Time No Known Allergies Allergy Verified 08/07/21 17:31 Review of Systems ROS Statement: Those systems with pertinent positive or pertinent negative responses have been documented in the HPI. ROS Other: All systems not noted in ROS Statement are negative. 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, per daughter only wants father to receive over counter pain meds no iv or hard medication it makes him very confused History of Any Multi-Drug Resistant Organisms: None Reported Past Surgical History: Pacemaker Past Anesthesia/Blood Transfusion Reactions: No Reported Reaction Type of Cardiac Device: Permanent Pacemaker Device Placement Date:: 12/03/2014 Past Psychological History: No Psychological Hx Reported Smoking Status: Never smoker Past Alcohol Use History: None Reported Past Drug Use History: None Reported - Past Family History Father Family Medical History: Unable to Obtain General Exam - General Exam Comments Initial Comments: GENERAL: Patient is well-developed and well-nourished. Patient is nontoxic and in no acute distress. HEAD: Patient has a large 3x4cm abrasion noted to the right superior aspect of his scalp, there is no active bleeding, this is very superficial. He does have some mild swelling noted in the area as well. Patient also has bruising and noted it to his nasal bridge and some bruising underneath both eyes. EYES: Pupils equal round and reactive to light, extraocular movements intact, sclera anicteric, conjunctiva are normal. Eyelids were unremarkable. ENT: TMs normal, nares patent, oropharynx clear without exudates. Moist mucous membranes. NECK: Normal range of motion, supple without lymphadenopathy or JVD. No midline tenderness. LUNGS: Unlabored respirations. Breath sounds clear to auscultation bilaterally and equal. No wheezes rales or rhonchi. HEART: Regular rate and rhythm without murmurs, rubs or gallops. ABDOMEN: Soft, nontender, normoactive bowel sounds. No guarding, no rebound. No masses appreciated. : Deferred MUSCULOSKELETAL: Normal extremities with adequate strength and normal range of motion, no pitting or edema. No clubbing or cyanosis. NEUROLOGICAL: Patient is alert and oriented x 2, it is his baseline. Motor and sensory are also intact. Cranial nerves II through XII grossly intact. Symmetrical smile. Normal speech, normal gait with walker. PSYCH: Normal mood, normal affect. SKIN: Warm, Dry, normal turgor, no rashes or lesions noted, other than whats above. Limitations: no limitations Course Vital Signs 08/07/21 08/07/21 17:35 20:27 Temperature 97.0 F L Pulse Rate 70 70 Respiratory 20 18 Rate Blood Pressure 172/92 173/84 O2 Sat by Pulse 100 96 Oximetry Medical Decision Making - Medical Decision Making Patient is an 86-year-old male with history of dementia, hypertension, presenting with his daughter after he fell 2 days ago. There is no loss of consciousness, is not on blood thinners. CT of the brain and C-spine revealed no acute fractures, no acute no cranial abnormality, there is soft tissue swelling of the scalp. There are no facial fractures seen on CT. Chest x-ray shows some congestive heart failure, this is no change. I discussed these findings with the patient and his daughter. Daughter is okay with not checking for urinalysis as patient just went to the restroom. Patient is stable for discharge. Return parameters were discussed with the patient and her daughter and she verbalized understanding. Case discussed with Dr. Tyson. - Lab Data Result diagrams: 08/07/21 20:27 08/07/21 20:27 Lab Results 08/07/21 08/07/21 Range/Units 20:27 20:27 WBC 7.0 (3.8-10.6) k/uL RBC 4.12 L (4.30-5.90) m/uL Hgb 12.7 L (13.0-17.5) gm/dL Hct 38.9 L (39.0-53.0) % MCV 94.6 (80.0-100.0) fL MCH 30.8 (25.0-35.0) pg MCHC 32.5 (31.0-37.0) g/dL RDW 14.5 (11.5-15.5) % Plt Count 210 (150-450) k/uL MPV 7.6 Neutrophils % 75 % Lymphocytes % 13 % Monocytes % 6 % Eosinophils % 3 % Basophils % 1 % Neutrophils # 5.3 (1.3-7.7) k/uL Lymphocytes # 0.9 L (1.0-4.8) k/uL Monocytes # 0.4 (0-1.0) k/uL Eosinophils # 0.2 (0-0.7) k/uL Basophils # 0.1 (0-0.2) k/uL Sodium 140 (137-145) mmol/L Potassium 4.4 (3.5-5.1) mmol/L Chloride 106 (98-107) mmol/L Carbon Dioxide 24 (22-30) mmol/L Anion Gap 10 mmol/L BUN 24 H (9-20) mg/dL Creatinine 0.86 (0.66-1.25) mg/dL Est GFR (CKD-EPI)AfAm >90 (>60 ml/min/1.73 sqM) Est GFR (CKD-EPI)NonAf 78 (>60 ml/min/1.73 sqM) Glucose 104 H (74-99) mg/dL Calcium 9.5 (8.4-10.2) mg/dL Magnesium 2.3 (1.6-2.3) mg/dL Total Bilirubin 0.9 (0.2-1.3) mg/dL AST 21 (17-59) U/L ALT 14 (4-49) U/L Alkaline Phosphatase 138 H (38-126) U/L Total Protein 7.7 (6.3-8.2) g/dL Albumin 4.4 (3.5-5.0) g/dL Disposition Clinical Impression: Fall, Scalp contusion Disposition: HOME SELF-CARE Condition: Stable Instructions (If sedation given, give patient instructions): Fall Prevention for Older Adults (ED) Additional Instructions: Please return to the Emergency Department if symptoms worsen or any other concerns. Continue with wound care for the abrasion on the forehead. These follow-up with your primary care physician. Is patient prescribed a controlled substance at d/c from ED?: No Referrals: Tamiko Cooper MD [Primary Care Provider] - 1-2 days Time of Disposition: 21:35
[2021-08-07 21:56] VITALS: BP 192/94; RESP 20; TEMP 97.8
== END 2021-08-07 21:56 | disposition home or self-care (01) ==
LOC: EC 15:55
DX: S00.03XA Contusion of scalp, initial encounter (principal); I11.0 Hypertensive heart disease with heart failure; I50.9 Heart failure, unspecified; E78.5 Hyperlipidemia, unspecified; Z79.82 Long term (current) use of aspirin; Z79.899 Other long term (current) drug therapy; Z95.0 Presence of cardiac pacemaker; W19.XXXA Unspecified fall, initial encounter; Y92.009 Unspecified place in unspecified non-institutional (private) residence as the place of occurrence of the external cause
CPT/HCPCS: 36415; 70450; 70486; 71046; 72125; 80053; 83735; 85025; 99284

== ENCOUNTER 2022-04-27 09:55 | Emergency (ER) | payer MEDICARE ==
[2022-04-27 10:05] VITALS: TEMP 97.5
--- NOTE | 2022-04-27 10:21 | ED ---
Extremity Problem HPI - General Chief complaint: Extremity Problem,Nontraumatic Stated complaint: rt foot pain Time Seen by Provider: 04/27/22 10:15 Source: patient, family, RN notes reviewed Mode of arrival: wheelchair Limitations: no limitations - History of Present Illness Initial comments: Patient is an 86-year-old male presents to the emergency room with his daughter with complaints of right lower extremity pain ongoing for approximately 1 week with increase in intensity. He was given 1000 mg of Tylenol today at his assisted-living without any improvement in symptoms. He and his daughter report that the pain is worse with ambulation and of no both of his feet are cold or and have some mild mottling which is new for him. It is difficult for him to describe the characteristics of the right extremity pain but states most consistent with cramping when given options of pain characteristics. His daughter reports that the only changes over the last week prior to symptoms starting were was adjustments in his pacemaker settings. He denies any other complaints such as lower extremity swelling, shortness of breath, chest pain, dizziness, headaches, nausea, vomiting, fevers or chills. He has a past medical history significant for hypertension, hyperlipidemia, congestive heart failure, dementia, skin cancer and he is hard of hearing. - Related Data Home Medications Medication Instructions Recorded Confirmed Aspirin EC [Ecotrin Low Dose] 81 mg PO HS 07/04/20 12/23/20 Simvastatin [Zocor] 20 mg PO HS 07/04/20 12/23/20 Tamsulosin [Flomax] 0.4 mg PO DAILY 07/04/20 12/23/20 lisinopriL [Zestril] 5 mg PO DAILY 07/04/20 12/23/20 Cholecalciferol [Vitamin D3 (25 25 mcg PO DAILY 12/23/20 12/23/20 Mcg = 1000 Iu)] Prevagen 1 tab PO DAILY 12/23/20 12/23/20 Previous Rx's Medication Instructions Recorded Acetaminophen Tab [Tylenol] 650 mg PO Q6HR PRN tab 12/27/20 Furosemide [Lasix] 40 mg PO DAILY 30 Days #30 tab 12/27/20 Metoprolol Succinate (ER) [Toprol 25 mg PO DAILY 30 Days #30 12/27/20 XL] tab.er.24h Allergies Allergy/AdvReac Type Severity Reaction Status Date / Time No Known Allergies Allergy Verified 04/27/22 10:05 Review of Systems ROS Statement: Those systems with pertinent positive or pertinent negative responses have been documented in the HPI. ROS Other: All systems not noted in ROS Statement are negative. 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, per daughter only wants father to receive over counter pain meds no iv or hard medication it makes him very confused History of Any Multi-Drug Resistant Organisms: None Reported Past Surgical History: Pacemaker Past Anesthesia/Blood Transfusion Reactions: No Reported Reaction Type of Cardiac Device: Permanent Pacemaker Device Placement Date:: 12/03/2014 Past Psychological History: No Psychological Hx Reported Smoking Status: Never smoker Past Alcohol Use History: None Reported Past Drug Use History: None Reported - Past Family History Father Family Medical History: Unable to Obtain General Exam Limitations: no limitations General appearance: alert, in no apparent distress Head exam: Present: atraumatic, normocephalic, normal inspection Eye exam: Present: normal appearance, PERRL, EOMI. Absent: scleral icterus, conjunctival injection, periorbital swelling ENT exam: Present: normal exam, mucous membranes moist Neck exam: Present: normal inspection. Absent: tenderness, meningismus, lymphadenopathy Respiratory exam: Present: normal lung sounds bilaterally. Absent: respiratory distress, wheezes, rales, rhonchi, stridor Cardiovascular Exam: Present: regular rate, normal rhythm, normal heart sounds, systolic murmur. Absent: diastolic murmur, rubs, gallop GI/Abdominal exam: Present: soft, normal bowel sounds. Absent: distended, tenderness, guarding, rebound, rigid Rectal exam: Present: deferred Extremities exam: Present: other (Cool to the touch. Distal skin mottling noted. Pulses via doppler. ). Absent: normal capillary refill, pedal edema, joint swelling, calf tenderness Back exam: Present: normal inspection Neurological exam: Present: alert Expanded Patient oriented to: Present: person, place Speech: Present: fluid speech Psychiatric exam: Present: normal affect, normal mood Skin exam: Present: mottled (bilateral distal feet and toes). Absent: rash Course Vital Signs 04/27/22 04/27/22 10:03 11:55 Temperature 97.5 F L Pulse Rate 70 70 Respiratory 20 18 Rate Blood Pressure 153/98 143/75 O2 Sat by Pulse 98 98 Oximetry Medical Decision Making - Medical Decision Making Right lower extremity pain worse with ambulation; claudication after pacemaker adjustment high probability for peripheral vascular disease and lack of lower extremity blood flow. Low probability for DVT in the setting of bilateral mottling" extremities. Pain isolated to right extremity at this time. Will check Doppler of the lower extremities along with CMP, CBC and PT/INR. Will also obtain EKG with recent pacemaker adjustment settings. Daughter and patient deny any analgesic need at this time. Will monitor closely. EKG shows 100% ventricular rate. CBC, CMP and PT INR all within normal limits with the exception of slightly elevated glucose. Doppler negative for DVT in either lower extremity. Signs and symptoms of claudication reviewed at length with daughter. Discussed symptoms requiring return to the emergency room and immediate follow-up. Encouraged follow-up with cardiology for further evaluation of peripheral vascular disease. Continue aspirin and statin as already prescribed by cardiology. Will discharge home. Case discussed with Dr. Pritchard. - Lab Data Result diagrams: 04/27/22 10:41 04/27/22 10:41 Lab Results 04/27/22 04/27/22 04/27/22 Range/Units 10:41 10:41 10:41 WBC 6.8 (3.8-10.6) k/uL RBC 4.35 (4.30-5.90) m/uL Hgb 13.4 (13.0-17.5) gm/dL Hct 41.7 (39.0-53.0) % MCV 95.9 (80.0-100.0) fL MCH 30.9 (25.0-35.0) pg MCHC 32.2 (31.0-37.0) g/dL RDW 14.7 (11.5-15.5) % Plt Count 168 (150-450) k/uL MPV 7.7 Neutrophils % 76 % Lymphocytes % 14 % Monocytes % 6 % Eosinophils % 3 % Basophils % 0 % Neutrophils # 5.2 (1.3-7.7) k/uL Lymphocytes # 1.0 (1.0-4.8) k/uL Monocytes # 0.4 (0-1.0) k/uL Eosinophils # 0.2 (0-0.7) k/uL Basophils # 0.0 (0-0.2) k/uL PT 10.8 (9.0-12.0) sec INR 1.0 (<1.2) Sodium 139 (137-145) mmol/L Potassium 4.1 (3.5-5.1) mmol/L Chloride 104 (98-107) mmol/L Carbon Dioxide 30 (22-30) mmol/L Anion Gap 5 mmol/L BUN 18 (9-20) mg/dL Creatinine 0.98 (0.66-1.25) mg/dL Est GFR (CKD-EPI)AfAm 81 (>60 ml/min/1.73 sqM) Est GFR (CKD-EPI)NonAf 70 (>60 ml/min/1.73 sqM) Glucose 133 H (74-99) mg/dL Calcium 9.2 (8.4-10.2) mg/dL Total Bilirubin 0.9 (0.2-1.3) mg/dL AST 22 (17-59) U/L ALT 18 (4-49) U/L Alkaline Phosphatase 107 (38-126) U/L Total Protein 7.4 (6.3-8.2) g/dL Albumin 4.5 (3.5-5.0) g/dL - EKG Data EKG Comments: Electronically ventricular paced. Ventricular rate 69 bpm, NM interval * ms, QRS duration 176 ms, QT/QTC 489/509 ms, PRT access*, -87, 99 - Radiology Data Radiology results: report reviewed, image reviewed Ultrasound venous Doppler bilateral duplex shows no evidence for acute DVT in either extremity. There is normal flow, compressibility and vascular waveform. Disposition Clinical Impression: Claudication Disposition: HOME SELF-CARE Condition: Stable Instructions (If sedation given, give patient instructions): Peripheral Vascular Disease (ED) Additional Instructions: Please continue to utilize walker as needed for mobility. Please continue Tylenol as needed for pain. 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 If you develop any worsening of lower extremity pain or discoloration please return to the emergency room. Please return to the Emergency Department if symptoms worsen or any other concerns. Is patient prescribed a controlled substance at d/c from ED?: No Referrals: Tamiko Cooper MD [Primary Care Provider] - 1-2 days Aries Vincent MD [STAFF PHYSICIAN] - 1-2 days Time of Disposition: 13:07
[2022-04-27 11:17] LABS: Basophils % (A) 0 %; Eosinophils # (A) 0.2 k/uL (0-0.7); Eosinophils % (A) 3 %; HCT 41.7 % (39.0-53.0); HGB 13.4 gm/dL (13.0-17.5); Lymphocytes % (A) 14 %; MCH 30.9 pg (25.0-35.0); MCHC 32.2 g/dL (31.0-37.0); MCV 95.9 fL (80.0-100.0); Mean Platelet Volume 7.7; Monocytes # (A) 0.4 k/uL (0-1.0); Monocytes % (A) 6 %; Neutrophils # (A) 5.2 k/uL (1.3-7.7); Neutrophils % (A) 76 %; Platelet Count 168 k/uL (150-450); RBC 4.35 m/uL (4.30-5.90); RDW 14.7 % (11.5-15.5); WBC 6.8 k/uL (3.8-10.6)
[2022-04-27 11:29] LABS: Albumin 4.5 g/dL (3.5-5.0); Calcium 9.2 mg/dL (8.4-10.2); Potassium 4.1 mmol/L (3.5-5.1); Total Bilirubin 0.9 mg/dL (0.2-1.3); Total Protein 7.4 g/dL (6.3-8.2)
[2022-04-27 11:33] LABS: Prothrombin Time 10.8 sec (9.0-12.0)
--- NOTE | 2022-04-27 12:29 | US ---
EXAMINATION TYPE: US venous doppler duplex LE DATE OF EXAM: 04/27/2022 12:14 PM COMPARISON: NONE CLINICAL HISTORY: pain and cold extremities. pain SIDE PERFORMED: Bilateral TECHNIQUE: The lower extremity deep venous system is examined utilizing real time linear array sonog michelle with graded compression, doppler sonography and color-flow sonography. VESSELS IMAGED: Common Femoral Vein Deep Femoral Vein Greater Saphenous Vein * Femoral Vein Popliteal Vein Small Saphenous Vein * Proximal Calf Veins (* superficial vessels) Right Leg: Negative for DVT Left Leg: Negative for DVT Grayscale, color doppler, spectral doppler imaging performed of the deep veins of the bilateral lower extremities. There is normal flow, compressibility, vascular waveforms. IMPRESSION: No ultrasound evidence for acute DVT in either lower extremity.
[2022-04-27 13:46] VITALS: BP 145/77; PULSE 75; RESP 16
== END 2022-04-27 13:50 | disposition home or self-care (01) ==
LOC: EC 09:55
DX: I73.9 Peripheral vascular disease, unspecified (principal); E78.5 Hyperlipidemia, unspecified; I10 Essential (primary) hypertension
CPT/HCPCS: 36415; 80053; 85025; 85610; 93005; 93970

== ENCOUNTER 2022-06-22 11:15 | Inpatient (IN) | payer MEDICARE ==
[2022-06-22] MEDS ORDERED: fentaNYL (PF) 50 MCG/ML 2 ML AMP IVP STA (12:00)
--- NOTE | 2022-06-22 12:00 | ED ---
Fall HPI - General Chief Complaint: Fall Stated Complaint: Fall, left hip injury Time Seen by Provider: 06/22/22 11:37 Source: patient, family (daughter), EMS, RN notes reviewed, old records reviewed Mode of arrival: EMS - History of Present Illness Initial Comments: 87-year-old male, awake and alert, presents to the emergency room with his daughter after falling out of the chair at the assisted living this morning. Patient did not hit his head or lose consciousness. He is not taking any blood thinners. He denies any other injuries. Daughter at bedside. 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 Witnessed: yes, by living facility staff Place Fall Occurred: senior living/SNF Loss of Consciousness: none Prolonged Down Time?: no Symptoms Prior to Fall: none Severity scale (1-10): 6 Associated Symptoms: denies - Related Data Home Medications Medication Instructions Recorded Confirmed Aspirin EC [Ecotrin Low Dose] 81 mg PO DAILY@0807/04/20 06/22/22 Tamsulosin [Flomax] 0.4 mg PO BID@08,199907/04/20 06/22/22 Cholecalciferol [Vitamin D3 (25 50 mcg PO DAILY@79912/23/20 06/22/22 Mcg = 1000 Iu)] Acetaminophen Tab [Tylenol Tab] 1,000 mg PO Q8H PRN 06/22/22 06/22/22 Carbamide Peroxide [Debrox Otic] 5 drops BOTH EARS BID PRN 06/22/22 06/22/22 Diclofenac Sodium Gel [Voltaren 2 gm TOPICAL BID PRN 06/22/22 06/22/22 Gel] Furosemide [Lasix] 40 mg PO DAILY@79906/22/22 06/22/22 Metoprolol Succinate (ER) [Toprol 12.5 mg PO DAILY@79906/22/22 06/22/22 XL] Pravastatin Sodium [Pravachol] 20 mg PO HS@199906/22/22 06/22/22 Spironolactone [Aldactone] 25 mg PO DAILY@79906/22/22 06/22/22 cilostazoL [Pletal] 50 mg PO BID@1000,1900 06/22/22 06/22/22 lisinopriL [Zestril] 2.5 mg PO DAILY@0800 06/22/22 06/22/22 polyethylene glycoL 3350 [Miralax] 17 gm PO BID PRN 06/22/22 06/22/22 Allergies Allergy/AdvReac Type Severity Reaction Status Date / Time No Known Allergies Allergy Verified 06/22/22 13:30 Review of Systems ROS Statement: Those systems with pertinent positive or pertinent negative responses have been documented in the HPI. ROS Other: All systems not noted in ROS Statement are negative. 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, per daughter only wants father to receive over counter pain meds no iv or hard medication it makes him very confu sed History of Any Multi-Drug Resistant Organisms: None Reported Past Surgical History: Pacemaker Past Anesthesia/Blood Transfusion Reactions: No Reported Reaction Type of Cardiac Device: Permanent Pacemaker Device Placement Date:: 12/03/2014 Past Psychological History: No Psychological Hx Reported Smoking Status: Never smoker Past Alcohol Use History: None Reported Past Drug Use History: None Reported - Past Family History Father Family Medical History: Unable to Obtain General Exam Limitations: language barrier General appearance: alert, in no apparent distress Head exam: Present: atraumatic, normocephalic, normal inspection Eye exam: Present: normal appearance, other (Blind left eye). Absent: scleral icterus, conjunctival injection, periorbital swelling, periorbital tenderness ENT exam: Present: mucous membranes moist Neck exam: Present: normal inspection. Absent: tenderness, meningismus, lymphadenopathy Respiratory exam: Absent: respiratory distress, accessory muscle use Cardiovascular Exam: Present: regular rate GI/Abdominal exam: Present: soft. Absent: distended, tenderness, guarding, rebound, rigid Extremities exam: Present: normal capillary refill. Absent: pedal edema, calf tenderness Left Hip exam: Present: tenderness, shortening, pelvic stability. Absent: full ROM Upper Leg exam: Present: tenderness (proximal femur) Knee exam: Absent: tenderness, swelling Lower Leg exam: Absent: tenderness, swelling Ankle exam: Absent: tenderness, swelling Foot/Toe exam: Absent: tenderness, swelling Neurovascular tendon exam: Present: no vascular compromise. Absent: abnormal cap refill, extremity cold to touch, pallor, foot drop Neurological exam: Present: alert Psychiatric exam: Present: normal affect, normal mood Skin exam: Present: warm, dry, normal color. Absent: cyanosis, diaphoretic, petechiae, pallor Course Vital Signs 06/22/22 11:18 Temperature 96.9 F L Pulse Rate 75 Respiratory 16 Rate Blood Pressure 133/70 O2 Sat by Pulse 97 Oximetry - Reevaluation(s) Reevaluation #1: 06/22/22 12:49 ilda with ortho notified of hip fracture Time: 12:49 Medical Decision Making - Medical Decision Making Patient presents with fall out of the chair today at the senior living onto his l eft side. States he did not hit his head or lose consciousness. Fall was witnessed by staff. Hemoglobin and hematocrit are stable. Electrolytes are unremarkable. XR left hip and plevis shows a displaced comminuted intertrochanteric proximal left femoral fracture, underlying osteoarthritic change to left hip. Case discussed with Ilda with orthopedics, patient will be admitted. Case discussed with Dr. Mustafa. - Lab Data Result diagrams: 06/22/22 13:00 06/22/22 13:00 Disposition Clinical Impression: Fall, Hip fracture, left Disposition: ADMITTED IP TO THIS [facility] Decision Date: 06/22/22 Decision Time: 12:49
--- NOTE | 2022-06-22 12:32 | XR ---
EXAMINATION TYPE: XR Hip LT and AP Pelvis DATE OF EXAM: 06/22/2022 COMPARISON: NONE HISTORY: Trauma and pain TECHNIQUE: An AP view of the pelvis is obtained. Two views of the left hip are obtained, total of 4 i mages. FINDINGS: There is displaced comminuted intertrochanteric proximal left femoral fracture, underlying osteoarthritic change in the left hip. No evident dislocation. Degenerative disc changes are noted i ncidentally in the lumbar spine. There are dense vascular calcifications noted. IMPRESSION: There is fracture left hip as described.
--- NOTE | 2022-06-22 12:35 | XR ---
EXAMINATION TYPE: XR chest 1V DATE OF EXAM: 06/22/2022 COMPARISON: Chest x-ray 08/07/2021, CT 12/23/2020 HISTORY: Trauma and pain TECHNIQUE: frontal view of the chest is obtained 2 images. FINDINGS: There is no focal air space opacity, pleural effusion, or pneumothorax seen. The cardiac silhouette size is marked for an enlarged heart, generators present in left pectoral region, there ar e leads in right atrium, right ventricle, coronary sinus. Central vascularity is prominent. There is improvement in volume status, aeration as compared to prior chest x-ray. Perihilar vascular indistin ctness is questioned. The osseous structures are remarkable for some irregularity along the lateral r ight fifth and seventh ribs, some local pleural thickening consistent with old right-sided rib fractu res. There is thoracic spondylosis. The aorta is dense. IMPRESSION: There may be a component of pulmonary venous hypertension and early interstitial edema o r possibly chronic compensated changes.
[2022-06-22] MEDS ORDERED: SODIUM CHLORIDE 0.9% 1,000 ML IV STA (12:40)
[2022-06-22] MEDS ORDERED: NALOXONE 0.4 MG/ML 1 ML VIAL IV PRN (12:53)
[2022-06-22 13:26] LABS: Basophils % (A) 0 %; Eosinophils # (A) 0.1 k/uL (0-0.7); Eosinophils % (A) 1 %; HCT 36.8 % (39.0-53.0); HGB 11.9 gm/dL (13.0-17.5); Lymphocytes # (A) 0.4 k/uL (1.0-4.8); Lymphocytes % (A) 5 %; MCH 29.8 pg (25.0-35.0); MCHC 32.4 g/dL (31.0-37.0); MCV 92.1 fL (80.0-100.0); Mean Platelet Volume 7.7; Monocytes # (A) 0.5 k/uL (0-1.0); Monocytes % (A) 6 %; Neutrophils # (A) 7.3 k/uL (1.3-7.7); Neutrophils % (A) 86 %; Platelet Count 293 k/uL (150-450); RDW 13.9 % (11.5-15.5); WBC 8.5 k/uL (3.8-10.6)
[2022-06-22 13:36] LABS: Partial Thromboplastin Time 29.3 sec (22.0-30.0); Prothrombin Time 11.1 sec (9.0-12.0)
[2022-06-22 13:42] LABS: Albumin 3.6 g/dL (3.5-5.0); Calcium 8.4 mg/dL (8.4-10.2); Potassium 4.9 mmol/L (3.5-5.1); Total Bilirubin 0.8 mg/dL (0.2-1.3); Total Protein 6.2 g/dL (6.3-8.2)
[2022-06-22] MEDS ORDERED: HYDROmorphone 0.5 MG/0.5 ML SYRINGE IVP PRN (14:55)
[2022-06-22] MEDS: HYDROmorphone 1 MG/ML 1 ML SYRINGE IVP PRN (16:12)
[2022-06-22] MEDS: HYDROcodone/APAP 5-325MG 1 EACH TAB PO PRN (17:39)
--- NOTE | 2022-06-22 17:52 | P.HPOR ---
History of Present Illness H&P Date: 06/22/22 Chief Complaint: Left hip pain The patient is an 87-year-old male with a history of dementia, enlarged prostate, CHF, hypertension, and A. fib. The patient's daughter is at the bedside and has provided all of the history. She states that he was reaching for a tissue at his assisted living and fell out of the chair. He was found to have an immediate left hip pain and was transferred to the emergency department at [facility] for further evaluation. X-rays revealed a displaced intertrochanteric fracture of the left femur and he was admitted to orthopedics for further evaluation and care. Internal medicine is on consultation. Review of Systems ROS unobtainable: due to mental status Past Medical History Past Medical History: Atrial Fibrillation, Cancer, Chest Pain / Angina, Heart Failure, Hyperlipidemia, Hypertension, Memory Impairment, Prostate Disorder Additional Past Medical History / Comment(s): skin cancer, chest pain over 40 years ago, shingles when he was 39 years old, left eye blind, enlarged prostate multiple times where he has had to have catheters put in for a week before, bowel obstruction related to bowel kinked, dementia, PAD History of Any Multi-Drug Resistant Organisms: None Reported Past Surgical History: Pacemaker Past Anesthesia/Blood Transfusion Reactions: No Reported Reaction Type of Cardiac Device: Permanent Pacemaker Device Placement Date:: 12/03/2014 Past Psychological History: No Psychological Hx Reported Additional Psychological History / Comment(s): Patient lives at [facility] Smoking Status: Former smoker Past Alcohol Use History: None Reported Past Drug Use History: None Reported - Past Family History Father Family Medical History: Unable to Obtain Medications and Allergies Home Medications Medication Instructions Recorded Confirmed Type Aspirin EC [Ecotrin Low Dose] 81 mg PO DAILY@0800 07/04/20 06/22/22 History Tamsulosin [Flomax] 0.4 mg PO BID@07/04/20 06/22/22 History Cholecalciferol [Vitamin D3 (25 50 mcg PO DAILY@0800 12/23/20 06/22/22 History Mcg = 1000 Iu)] Acetaminophen Tab [Tylenol Tab] 1,000 mg PO Q8H PRN 06/22/22 06/22/22 History Carbamide Peroxide [Debrox Otic] 5 drops BOTH EARS BID PRN 06/22/22 06/22/22 History Diclofenac Sodium Gel [Voltaren 2 gm TOPICAL BID PRN 06/22/22 06/22/22 History Gel] Furosemide [Lasix] 40 mg PO DAILY@79906/22/22 06/22/22 History Metoprolol Succinate (ER) [Toprol 12.5 mg PO DAILY@79906/22/22 06/22/22 History XL] Pravastatin Sodium [Pravachol] 20 mg PO HS@199906/22/22 06/22/22 History Spironolactone [Aldactone] 25 mg PO DAILY@79906/22/22 06/22/22 History cilostazoL [Pletal] 50 mg PO BID@1000,1900 06/22/22 06/22/22 History lisinopriL [Zestril] 2.5 mg PO DAILY@79906/22/22 06/22/22 History polyethylene glycoL 3350 [Miralax] 17 gm PO BID PRN 06/22/22 06/22/22 History Allergies Allergy/AdvReac Type Severity Reaction Status Date / Time No Known Allergies Allergy Verified 06/22/22 13:30 Physical Examination Osteopathic Statement: *. No significant issues noted on an osteopathic structural exam other than those noted in the History and Physical/Consult. The patient is an 87-year-old male in no acute distress. He is alert and orient ed 1. The patient's head is normocephalic, atraumatic. No pain upon palpation to the cervical spine, no step-offs noted. Exam of the bilateral upper extremities reveal no obvious deformities or wounds. Exam of the right lower extremity reveals no deformity or wounds. No pain upon range of motion of the right leg. Exam of the left lower extremity reveals severe guarding to the left hip. There is pain to palpation to the lateral hip. There is pain to external and internal rotation of the left hip. Calf is soft and nontender. He is able to wiggle his toes. Circulatory status is intact. Results x-rays of the left hip reveal a displaced intertrochanteric fracture of the left femur. - Labs Labs: Abnormal Lab Results - Last 24 Hours (Table) 06/22/22 06/22/22 Range/Units 13:00 13:00 RBC 4.00 L (4.30-5.90) m/uL Hgb 11.9 L (13.0-17.5) gm/dL Hct 36.8 L (39.0-53.0) % Lymphocytes # 0.4 L (1.0-4.8) k/uL Sodium 131 L (137-145) mmol/L BUN 22 H (9-20) mg/dL Glucose 101 H (74-99) mg/dL Total Protein 6.2 L (6.3-8.2) g/dL H & H 06/22/22 Range/Units 13:00 Hgb 11.9 L (13.0-17.5) gm/dL Hct 36.8 L (39.0-53.0) % Coagulation 06/22/22 Range/Units 13:00 INR 1.0 (<1.2) Result Diagrams: 06/22/22 13:00 06/22/22 13:00 Assessment and Plan (1) A-fib Current Visit: Yes Status: Acute Code(s): I48.91 - UNSPECIFIED ATRIAL FIBRILLATION SNOMED Code(s): 73125629 (2) Hypertension Current Visit: Yes Status: Acute Code(s): I10 - ESSENTIAL (PRIMARY) HYPERTENSION SNOMED Code(s): 40519156 (3) BPH (benign prostatic hyperplasia) Current Visit: Yes Status: Acute Code(s): N40.0 - BENIGN PROSTATIC HYPERPLASIA WITHOUT LOWER URINRY TRACT SYMP SNOMED Code(s): 698668539 (4) CHF (congestive heart failure) Current Visit: Yes Status: Acute Code(s): I50.9 - HEART FAILURE, UNSPECIFIED SNOMED Code(s): 23845290 (5) Fall Current Visit: Yes Status: Acute Code(s): W19.XXXA - UNSPECIFIED FALL, INITIAL ENCOUNTER SNOMED Code(s): 8803899 (6) Hip fracture, left Current Visit: Yes Status: Acute Code(s): S72.002A - FRACTURE OF UNSP PART OF NECK OF LEFT FEMUR, INIT SNOMED Code(s): 566634693 Plan: The clinical and x-ray findings were discussed with the patient's daughter at bedside. The case was discussed at length with Dr. Chelsea Martinez. The patient will undergo a cephalomedullary nailing of the left hip on Saturday. He will be nothing by mouth at midnight tomorrow. Continue bedrest. Continue pain control. We will continue to follow patient closely and make further recommendations as needed. Pt seen and examined. Agree with above. DEISI is the patient's daughter and she agrees with a CMN.
[2022-06-22] MEDS ORDERED: polyethylene glycoL 3350 17 GM POWD.PACK PO PRN (19:11)
[2022-06-22] MEDS ORDERED: DICLOFENAC SODIUM GEL 100 GM TUBE TOPICAL PRN (19:11)
[2022-06-22] MEDS: MORPHINE SULFATE 2 MG/ML SYRINGE IVP PRN ×2 (19:11→23:24)
--- NOTE | 2022-06-22 19:21 | P.CONS ---
History of Present Illness - Reason for Consult Consult date: 06/22/22 Medical management Requesting physician: Chelsea Martinez - Chief Complaint Fall - History of Present Illness This is a pleasant 87-year-old patient who follows with Dr. Cooper. Chronic stable medical conditions include CHF EF 20%, dementia, anxiety, hypertension, BPH, hyperlipidemia, atrial fibrillation. Patient idaughter. Yessica who is the POA is at the bedside. Recently patient has been given a walker to use. Today he was sitting on a chair and the staff heard a hard and patient was found on the floor. Patient has a displaced comminuted IT fracture of the proximal left femoral. Abdomen baseline patient is able to read but can basically answer yes and no. Does not have a good memory. Limited exercise tolerance. Not really we'll answer most questions. Patient is in pain Review of systems: Patient unable to answer Past medical history to include: Atrial fibrillation, CHF EF 20%, hypertension, hyperlipidemia, cognitive impairment, skin cancer, left eye blind, and large plastic, PAD permanent pacemaker Social history: Former smoker. Lives at [facility]. Has just started using a walker. Family history: Patient cannot tell Physical examination: VITAL SIGNS: 97.9, 68, 16, 147/74, 96% room air GENERAL: BMI 23.6, reclining but awake, and comfortable. EYES: Pupils equal. Conjunctiva normal. HEENT: External appearance of nose and ears normal, oral cavity grossly normal. NECK: JVD not raised; masses not palpable. HEART: Irregular heart sounds; no edema. LUNGS: Respiratory rate normal; decreased breath sounds. ABDOMEN: Soft, nontender, liver spleen not palpable, no masses palpable. PSYCH: Occasionally answers yes and nol. MUSCULOSKELETAL:No Clubbing/cyanosis;muscles-grossly intact. Limited range of motion left hip, evidence of OA NEUROLOGICAL: Cranial nerves grossly intact; no facial asymmetry, power and sensation grossly intact. LYMPHATICS: No lymph nodes palpable in the axilla and neck INVESTIGATIONS, reviewed in the clinical context: WBC 8.5 hemoglobin 11.9 platelets 290 [birth year]1930 potassium 4.9. 22 creatinine 1.19 Chest x-ray film personally reviewed by me-pacemaker, cardiomegaly Hip x-ray film personally reviewed by me: Left femur fracture Assessment and plan: -Left femur fracture secondary to fall. Probably need nailing Pain control -Persistent atrial fibrillation Toprol-XL 12.5 mg daily -Primary osteoarthritis Ahsan in [facility] when necessary -Chronic congestive heart failure from systolic dysfunction EF 20% Aldactone. Hold Lasix. -Hyperlipidemia Pravachol -BPH Flomax 0.4 mg twice a day -Essential hypertension Zestril, Toprol-XL -DO NOT RESUSCITATE -Medical POA, Yessica,daughter Cardiovascular perioperative risk assessment: Patient's current advanced age. Multiple comorbidities. Limited exercise tolerance. Patient has a low blood loss surgery. Risk of surgical out comes is moderate to high. No cardiac patient to proceed with surgery. Discussed with daughter the bedside. Stable to proceed for surgery Thank you Dr. Martinez Past Medical History Past Medical History: Atrial Fibrillation, Cancer, Chest Pain / Angina, Heart Failure, Hyperlipidemia, Hypertension, Memory Impairment, Prostate Disorder Additional Past Medical History / Comment(s): skin cancer, chest pain over 40 years ago, shingles when he was 39 years old, left eye blind, enlarged prostate multiple times where he has had to have catheters put in for a week before, bowel obstruction related to bowel kinked, dementia, PAD History of Any Multi-Drug Resistant Organisms: None Reported Past Surgical History: Pacemaker Past Anesthesia/Blood Transfusion Reactions: No Reported Reaction Type of Cardiac Device: Permanent Pacemaker Device Placement Date:: 12/03/2014 Past Psychological History: No Psychological Hx Reported Additional Psychological History / Comment(s): Patient lives at [facility] Smoking Status: Former smoker Past Alcohol Use History: None Reported Past Drug Use History: None Reported - Past Family History Father Family Medical History: Unable to Obtain Medications and Allergies Home Medications Medication Instructions Recorded Confirmed Type Aspirin EC [Ecotrin Low Dose] 81 mg PO DAILY@0800 07/04/20 06/22/22 History Tamsulosin [Flomax] 0.4 mg PO BID@0800,199907/04/20 06/22/22 History Cholecalciferol [Vitamin D3 (25 50 mcg PO DAILY@0800 12/23/20 06/22/22 History Mcg = 1000 Iu)] Acetaminophen Tab [Tylenol Tab] 1,000 mg PO Q8H PRN 06/22/22 06/22/22 History Carbamide Peroxide [Debrox Otic] 5 drops BOTH EARS BID PRN 06/22/22 06/22/22 History Diclofenac Sodium Gel [Voltaren 2 gm TOPICAL BID PRN 06/22/22 06/22/22 History Gel] Furosemide [Lasix] 40 mg PO DAILY@79906/22/22 06/22/22 History Metoprolol Succinate (ER) [Toprol 12.5 mg PO DAILY@79906/22/22 06/22/22 History XL] Pravastatin Sodium [Pravachol] 20 mg PO HS@199906/22/22 06/22/22 History Spironolactone [Aldactone] 25 mg PO DAILY@79906/22/22 06/22/22 History cilostazoL [Pletal] 50 mg PO BID@1000,1900 06/22/22 06/22/22 History lisinopriL [Zestril] 2.5 mg PO DAILY@79906/22/22 06/22/22 History polyethylene glycoL 3350 [Miralax] 17 gm PO BID PRN 06/22/22 06/22/22 History Allergies Allergy/AdvReac Type Severity Reaction Status Date / Time No Known Allergies Allergy Verified 06/22/22 13:30 Physical Exam Vitals: Vital Signs Temp Pulse Pulse Resp BP BP Pulse Ox 06/22/22 16:37 76 16 126/68 97 06/22/22 15:10 97.9 F 68 16 147/74 96 06/22/22 11:18 96.9 F L 75 16 133/70 97 Intake and Output 06/22/22 06/22/22 06/22/22 06:59 14:59 22:59 Other: Voiding Method External Catheter Weight 72.575 kg 72.575 kg Results CBC & Chem 7: 06/22/22 13:00 06/22/22 13:00 Labs: Abnormal Lab Results - Last 24 Hours (Table) 06/22/22 06/22/22 Range/Units 13:00 13:00 RBC 4.00 L (4.30-5.90) m/uL Hgb 11.9 L (13.0-17.5) gm/dL Hct 36.8 L (39.0-53.0) % Lymphocytes # 0.4 L (1.0-4.8) k/uL Sodium 131 L (137-145) mmol/L BUN 22 H (9-20) mg/dL Glucose 101 H (74-99) mg/dL Total Protein 6.2 L (6.3-8.2) g/dL
[2022-06-22] MEDS: CYCLOBENZAPRINE 10 MG TAB PO PRN (19:58)
[2022-06-22] MEDS: TAMSULOSIN 0.4 MG CAP.ER.24H PO SCH (19:58)
[2022-06-22] MEDS: ENOXAPARIN 40 MG/0.4 ML SYRINGE SQ SCH (19:58)
[2022-06-22] MEDS: PRAVASTATIN SODIUM 20 MG TAB PO SCH (19:58)
[2022-06-23 00:10] LABS: Amphetamine Screen,Urine Not Detected (NotDetected); Barbiturate Screen,Urine Not Detected (NotDetected); Benzodiazepines Screen,Urine Not Detected (NotDetected); Cocaine Screen,Urine Not Detected (NotDetected); Methadone Screen, Urine Not Detected (NotDetected); Opiate Screen,Urine Detected (NotDetected); Oxycodone Screen, Urine Not Detected (NotDetected); Phencyclidine Screen,Urine Not Detected (NotDetected); Tricyclic Antidepressant,Urine Not Detected (NotDetected); Urn Cannabinoid Scrn Not Detected (NotDetected)
--- NOTE | 2022-06-23 08:59 | P.PN ---
Subjective Progress Note Date: 06/23/22 Principal diagnosis: Left hip fracture The patient is an 87-year-old male with a history of dementia, enlarged prostate, CHF, hypertension, and A. fib. The patient's daughter is at the bedside and has provided all of the history. She states that he was reaching for a tissue at his assisted living and fell out of the chair. He was found to have an immediate left hip pain and was transferred to the emergency department at [facility] for further evaluation. X-rays revealed a displaced intertrochanteric fracture of the left femur and he was admitted to orthopedics for further evaluation and care. Internal medicine is on consultation. Today, the patient is resting more comfortably. No new complaints this morning. Objective - Vital Signs Vital signs: Vital Signs Temp 97.9 F 06/23/22 05:00 Pulse 70 06/23/22 05:00 Resp 12 06/23/22 05:00 BP 102/61 06/23/22 05:00 Pulse Ox 92 L 06/23/22 05:00 FiO2 Intake & Output 06/22/22 06/23/22 06/23/22 18:59 06:59 18:59 Output Total 200 Balance -200 Weight 72.575 kg Output: Urine 200 Other: Voiding Method External Catheter External Catheter - Exam The patient is an 87-year-old male in no acute distress. He is alert and oriented 1. The patient's head is normocephalic, atraumatic. No pain upon palpation to the cervical spine, no step-offs noted. Exam of the bilateral upper extremities reveal no obvious deformities or wounds. Exam of the right lower extremity reveals no deformity or wounds. No pain upon range of motion of the right leg. Exam of the left lower extremity reveals severe guarding to the left hip. There is pain to palpation to the lateral hip. There is pain to external and internal rotation of the left hip. Calf is soft and nontender. He is able to wiggle his toes. Circulatory status is intact. - Labs CBC & Chem 7: 06/22/22 13:00 06/22/22 13:00 Labs: Abnormal Lab Results - Last 24 Hours (Table) 06/22/22 06/22/22 06/22/22 Range/Units 13:00 13:00 23:27 RBC 4.00 L (4.30-5.90) m/uL Hgb 11.9 L (13.0-17.5) gm/dL Hct 36.8 L (39.0-53.0) % Lymphocytes # 0.4 L (1.0-4.8) k/uL Sodium 131 L (137-145) mmol/L BUN 22 H (9-20) mg/dL Glucose 101 H (74-99) mg/dL Total Protein 6.2 L (6.3-8.2) g/dL Urine Opiates Screen Detected H (NotDetected) Assessment and Plan (1) A-fib Current Visit: Yes Status: Acute Code(s): I48.91 - UNSPECIFIED ATRIAL FIBRILLATION SNOMED Code(s): 09973847 (2) Hypertension Current Visit: Yes Status: Acute Code(s): I10 - ESSENTIAL (PRIMARY) HYPERTENSION SNOMED Code(s): 32615492 (3) BPH (benign prostatic hyperplasia) Current Visit: Yes Status: Acute Code(s): N40.0 - BENIGN PROSTATIC HYPERPLASIA WITHOUT LOWER URINRY TRACT SYMP SNOMED Code(s): 043028720 (4) CHF (congestive heart failure) Current Visit: Yes Status: Acute Code(s): I50.9 - HEART FAILURE, UNSPECIFIED SNOMED Code(s): 98302833 (5) Fall Current Visit: Yes Status: Acute Code(s): W19.XXXA - UNSPECIFIED FALL, INITIAL ENCOUNTER SNOMED Code(s): 7516530 (6) Hip fracture, left Current Visit: Yes Status: Acute Code(s): S72.002A - FRACTURE OF UNSP PART OF NECK OF LEFT FEMUR, INIT SNOMED Code(s): 676448285 Plan: The clinical and x-ray findings were discussed with the patient's daughter at bedside. The case was discussed at length with Dr. Chelsea Martinez. The patient will undergo a cephalomedullary nailing of the left hip tomorrow. He will be nothing by mouth at midnight tonight. Continue bedrest. Continue pain control. We will continue to follow patient closely and make further recommendations as needed.
[2022-06-23] MEDS: ASPIRIN 81 MG PO SCH (10:08)
[2022-06-23] MEDS: METOPROLOL SUCCINATE (ER) 25 MG TAB.ER.24H PO SCH (10:08)
[2022-06-23] MEDS: MORPHINE SULFATE 2 MG/ML SYRINGE IVP PRN ×3 (10:09→20:10)
[2022-06-23] MEDS: ENOXAPARIN 40 MG/0.4 ML SYRINGE SQ SCH (10:11)
[2022-06-23] MEDS: cilostazoL 100 MG TAB PO SCH ×2 (12:10→20:04)
[2022-06-23] MEDS: SPIRONOLACTONE 25 MG TAB PO SCH (12:48)
[2022-06-23] MEDS: TAMSULOSIN 0.4 MG CAP.ER.24H PO SCH ×2 (12:48→20:04)
[2022-06-23] MEDS: CYCLOBENZAPRINE 10 MG TAB PO PRN (12:51)
--- NOTE | 2022-06-23 14:20 | P.PN ---
Progress Note - Text Progress Note Date: 06/23/22 - Chief Complaint Fall Hospital course This is a pleasant 87-year-old patient who follows with Dr. Cooper. Chronic stable medical conditions include CHF EF 20%, dementia, anxiety, hypertension, BPH, hyperlipidemia, atrial fibrillation. Patient idaughter. Yessica who is the POA is at the bedside. Recently patient has been given a walker to use. Today he was sitting on a chair and the staff heard a hard and patient was found on the floor. Patient has a displaced comminuted IT fracture of the proximal left femoral. Abdomen baseline patient is able to read but can basically answer yes and no. Does not have a good memory. Limited exercise tolerance. Not really we'll answer most questions. Patient is in pain June 23: Daughter the bedside. Patient resting comfortably. For surgery tomorrow. No new issues. Discussed with daughter. Active Medications Hydrocodone Bitart/Acetaminophen (Hydrocodone/Apap 5-325mg 1 Each Tab) 1 each PO Q4HR PRN PRN Reason: Pain Scale 1 to 5 Hydrocodone Bitart/Acetaminophen (Hydrocodone/Apap 5-325mg 1 Each Tab) 2 each PO Q6HR PRN PRN Reason: Pain Scale 6 to 10 Last Admin: 06/22/22 17:39 Dose: 2 each Aspirin (Aspirin 81 Mg) 81 mg PO DAILY@0800 [facility] Last Admin: 06/23/22 10:08 Dose: 81 mg Cilostazol (Cilostazol 100 Mg Tab) 50 mg PO BID@1000,1900 [facility] Last Admin: 06/23/22 12:10 Dose: 50 mg Cyclobenzaprine HCl (Cyclobenzaprine 10 Mg Tab) 10 mg PO TID PRN PRN Reason: Muscle Spasm Last Admin: 06/23/22 12:51 Dose: 10 mg Diclofenac Sodium (Diclofenac Sodium Gel 100 Gm Tube) 2 gm TOPICAL BID PRN; Protocol PRN Reason: low back pain Enoxaparin Sodium (Enoxaparin 40 Mg/0.4 Ml Syringe) 40 mg SQ DAILY [facility] Last Admin: 06/23/22 10:11 Dose: 40 mg Hydromorphone HCl (Hydromorphone 0.5 Mg/0.5 Ml Syringe) 0.5 mg IVP Q4HR PRN PRN Reason: Breakthrough Pain Hydromorphone HCl (Hydromorphone 1 Mg/Ml 1 Ml Syringe) 1 mg IVP Q4HR PRN PRN Reason: Severe Breakthrough Pain Last Admin: 06/22/22 16:12 Dose: 1 mg Lisinopril (Lisinopril 2.5 Mg Tab) 2.5 mg PO HS [facility] Metoprolol Succinate (Metoprolol Succinate (Er) 25 Mg Tab.Er.24h) 12.5 mg PO DAILY@0800 [facility] Last Admin: 06/23/22 10:08 Dose: 12.5 mg Morphine Sulfate (Morphine Sulfate 2 Mg/Ml Syringe) 2 mg IVP Q4HR PRN PRN Reason: Breakthrough Pain Last Admin: 06/23/22 10:09 Dose: 2 mg Naloxone HCl (Naloxone 0.4 Mg/Ml 1 Ml Vial) 0.2 mg IV Q2M PRN PRN Reason: Opioid Reversal Polyethylene Glycol (Polyethylene Glycol 3350 17 Gm Powd.Pack) 17 gm PO BID PRN PRN Reason: Constipation Pravastatin Sodium (Pravastatin Sodium 20 Mg Tab) 20 mg PO HS@1999 [facility] Last Admin: 06/22/22 19:58 Dose: 20 mg Spironolactone (Spironolactone 25 Mg Tab) 25 mg PO DAILY@0800 [facility] Last Admin: 06/23/22 12:48 Dose: Not Given Tamsulosin HCl (Tamsulosin 0.4 Mg Cap.Er.24h) 0.4 mg PO BID@799,1999 [facility] Last Admin: 06/23/22 12:48 Dose: Not Given Past medical history to include: Atrial fibrillation, CHF EF 20%, hypertension, hyperlipidemia, cognitive impairment, skin cancer, left eye blind, and large plastic, PAD permanent pacemaker Social history: Former smoker. Lives at [facility] living. Has just started using a walker. Family history: Patient cannot tell Physical examination: VITAL SIGNS: 99.8, 70, 15, 107 Miss 61, 97% room air GENERAL: resting bed, comfortable EYES: Pupils equal. Conjunctiva normal. HEENT: External appearance of nose and ears normal, oral cavity grossly normal. NECK: JVD not raised; masses not palpable. HEART: Irregular heart sounds; no edema. LUNGS: Respiratory rate normal; decreased breath sounds. ABDOMEN: Soft, nontender, liver spleen not palpable, no masses palpable. PSYCH: Occasionally answers yes and nol. MUSCULOSKELETAL:No Clubbing/cyanosis;muscles-grossly intact. Limited range of motion left hip, evidence of OA INVESTIGATIONS, reviewed in the clinical context: WBC 8.5 hemoglobin 11.9 platelets 290 12/11/1930 potassium 4.9. 22 creatinine 1.19 Chest x-ray film personally reviewed by me-pacemaker, cardiomegaly Hip x-ray film personally reviewed by me: Left femur fracture Assessment and plan: -Left femur fracture secondary to fall. Probably need nailing Pain control -Persistent atrial fibrillation Toprol-XL 12.5 mg daily -Primary osteoarthritis Ahsan in correction when necessary -Chronic congestive heart failure from systolic dysfunction EF 20% Aldactone. Hold Lasix. -Hyperlipidemia Pravachol -BPH Flomax 0.4 mg twice a day -Essential hypertension Zestril, Toprol-XL -DO NOT RESUSCITATE -Medical POA, Yessica,daughter Cardiovascular perioperative risk assessment: Patient's current advanced age. Multiple comorbidities. Limited exercise tolerance. Patient has a low blood loss surgery. Risk of surgical out comes is moderate to high. No cardiac patient to proceed with surgery. Discussed with daughter the bedside. Stable to proceed for surgery Continue current medications. Discussed with daughter the bedside. Scheduled for surgery tomorrow. Thank you Dr. Martinez
[2022-06-23] MEDS: PRAVASTATIN SODIUM 20 MG TAB PO SCH (20:04)
[2022-06-24] MEDS: MORPHINE SULFATE 2 MG/ML SYRINGE IVP PRN (07:47)
[2022-06-24] MEDS: ASPIRIN 81 MG PO SCH (09:44)
[2022-06-24] MEDS: SPIRONOLACTONE 25 MG TAB PO SCH (09:44)
[2022-06-24] MEDS: TAMSULOSIN 0.4 MG CAP.ER.24H PO SCH ×2 (09:44→21:11)
[2022-06-24] MEDS: METOPROLOL SUCCINATE (ER) 25 MG TAB.ER.24H PO SCH (09:44)
[2022-06-24] MEDS: ENOXAPARIN 40 MG/0.4 ML SYRINGE SQ SCH (11:42)
[2022-06-24] MEDS: cilostazoL 100 MG TAB PO SCH ×2 (11:43→23:03)
[2022-06-24] MEDS ORDERED: LACTATED RINGERS 1,000 ML IV ONE (11:46)
[2022-06-24] MEDS ORDERED: PHENYLEPHRINE-0.9% NACL SYG 1,000 MCG/10 ML SYRINGE ONE (11:48)
[2022-06-24] MEDS ORDERED: SUCCINYLCHOLINE CHLORIDE 200 MG/10 ML VIAL IV ONE (11:48)
[2022-06-24] MEDS ORDERED: PROPOFOL 10 MG/ML 20 ML VIAL IV ONE (11:48)
[2022-06-24] MEDS ORDERED: LIDOCAINE 2% INJ 20 MG/ML (2 ML VIAL) ONE (11:48)
[2022-06-24] MEDS ORDERED: fentaNYL (PF) 50 MCG/ML 2 ML AMP ONE (11:48)
[2022-06-24] MEDS ORDERED: SODIUM CHLORIDE 0.9% 100 ML with ceFAZolin 2 GM IV ONE ×2 (11:53)
[2022-06-24] MEDS ORDERED: MAGNESIUM HYDROXIDE 2,400 MG/10 ML CUP PO PRN (12:32)
--- NOTE | 2022-06-24 13:03 | P.PN ---
Progress Note - Text Progress Note Date: 06/24/22 - Chief Complaint Fall Hospital course This is a pleasant 87-year-old patient who follows with Dr. Cooper. Chronic stable medical conditions include CHF EF 20%, dementia, anxiety, hypertension, BPH, hyperlipidemia, atrial fibrillation. Patient idaughter. Yessica who is the POA is at the bedside. Recently patient has been given a walker to use. Today he was sitting on a chair and the staff heard a hard and patient was found on the floor. Patient has a displaced comminuted IT fracture of the proximal left femoral. Abdomen baseline patient is able to read but can basically answer yes and no. Does not have a good memory. Limited exercise tolerance. Not really we'll answer most questions. Patient is in pain June 23: Daughter the bedside. Patient resting comfortably. For surgery tomorrow. No new issues. Discussed with daughter. June 24: Patient seen earlier today. Pending surgery. Comfortably laying in bed. Active Medications Hydrocodone Bitart/Acetaminophen (Hydrocodone/Apap 5-325mg 1 Each Tab) 1 each PO Q4HR PRN PRN Reason: Pain Scale 1 to 5 Hydrocodone Bitart/Acetaminophen (Hydrocodone/Apap 5-325mg 1 Each Tab) 2 each PO Q6HR PRN PRN Reason: Pain Scale 6 to 10 Last Admin: 06/22/22 17:39 Dose: 2 each Aspirin (Aspirin 81 Mg) 81 mg PO DAILY@0800 [facility] Last Admin: 06/24/22 09:44 Dose: 81 mg Cilostazol (Cilostazol 100 Mg Tab) 50 mg PO BID@1000,1900 [facility] Last Admin: 06/24/22 11:43 Dose: Not Given Cyclobenzaprine HCl (Cyclobenzaprine 10 Mg Tab) 10 mg PO TID PRN PRN Reason: Muscle Spasm Last Admin: 06/23/22 12:51 Dose: 10 mg Diclofenac Sodium (Diclofenac Sodium Gel 100 Gm Tube) 2 gm TOPICAL BID PRN; Protocol PRN Reason: low back pain Enoxaparin Sodium (Enoxaparin 40 Mg/0.4 Ml Syringe) 40 mg SQ DAILY [facility] Last Admin: 06/24/22 11:42 Dose: Not Given Hydromorphone HCl (Hydromorphone 0.5 Mg/0.5 Ml Syringe) 0.5 mg IVP Q4HR PRN PRN Reason: Breakthrough Pain Hydromorphone HCl (Hydromorphone 1 Mg/Ml 1 Ml Syringe) 1 mg IVP Q4HR PRN PRN Reason: Severe Breakthrough Pain Last Admin: 06/22/22 16:12 Dose: 1 mg Lactated Ringer's (Lactated Ringers) 1,000 mls @ 40 mls/hr IV .Q24H [facility] Cefazolin Sodium 2 gm/ Sodium (Chloride) 50 mls @ 100 mls/hr IVPB Q8H [facility]; Protocol Stop: 06/25/22 04:29 Lisinopril (Lisinopril 2.5 Mg Tab) 2.5 mg PO HS [facility] Last Admin: 06/23/22 20:04 Dose: 2.5 mg Magnesium Hydroxide (Magnesium Hydroxide 2,400 Mg/10 Ml Cup) 2,400 mg PO DAILY PRN PRN Reason: Constipation Metoprolol Succinate (Metoprolol Succinate (Er) 25 Mg Tab.Er.24h) 12.5 mg PO DAILY@0800 [facility] Last Admin: 06/24/22 09:44 Dose: 12.5 mg Morphine Sulfate (Morphine Sulfate 2 Mg/Ml Syringe) 2 mg IVP Q4HR PRN PRN Reason: Breakthrough Pain Last Admin: 06/24/22 07:47 Dose: 2 mg Naloxone HCl (Naloxone 0.4 Mg/Ml 1 Ml Vial) 0.2 mg IV Q2M PRN PRN Reason: Opioid Reversal Polyethylene Glycol (Polyethylene Glycol 3350 17 Gm Powd.Pack) 17 gm PO BID PRN PRN Reason: Constipation Pravastatin Sodium (Pravastatin Sodium 20 Mg Tab) 20 mg PO HS@1999 [facility] Last Admin: 06/23/22 20:04 Dose: 20 mg Senna/Docusate Sodium (Sennosides-Docusate Sodium 1 Each Tab) 2 each PO HS [facility] Spironolactone (Spironolactone 25 Mg Tab) 25 mg PO DAILY@0800 [facility] Last Admin: 06/24/22 09:44 Dose: 25 mg Tamsulosin HCl (Tamsulosin 0.4 Mg Cap.Er.24h) 0.4 mg PO BID@799,1999 [facility] Last Admin: 06/24/22 09:44 Dose: 0.4 mg Past medical history to include: Atrial fibrillation, CHF EF 20%, hypertension, hyperlipidemia, cognitive impairment, skin cancer, left eye blind, and large plastic, PAD permanent pacemaker Social history: Former smoker. Lives at [facility]. Has just started using a walker. Family history: Patient cannot tell Physical examination: VITAL SIGNS: 99.1, 87, 15, 124/63, 94% room air GENERAL: resting in bed, comfortable EYES: Pupils equal. Conjunctiva normal. HEENT: External appearance of nose and ears normal, oral cavity grossly normal. NECK: JVD not raised; masses not palpable. HEART: Irregular heart sounds; no edema. LUNGS: Respiratory rate normal; decreased breath sounds. ABDOMEN: Soft, nontender, liver spleen not palpable, no masses palpable. PSYCH: Occasionally answers yes and nol. MUSCULOSKELETAL:No Clubbing/cyanosis;muscles-grossly intact. Limited range of motion left hip, evidence of OA INVESTIGATIONS, reviewed in the clinical context: WBC 8.5 hemoglobin 11.9 platelets 290 12/11/1930 potassium 4.9. 22 creatinine 1.19 Chest x-ray film personally reviewed by me-pacemaker, cardiomegaly Hip x-ray film personally reviewed by me: Left femur fracture Assessment and plan: -Left femur fracture secondary to fall. Probably need nailing Pending surgery today -Persistent atrial fibrillation Toprol-XL 12.5 mg daily -Primary osteoarthritis Ahsan in skilled nursing when necessary -Chronic congestive heart failure from systolic dysfunction EF 20% Aldactone. Hold Lasix. -Hyperlipidemia Pravachol -BPH Flomax 0.4 mg twice a day -Essential hypertension Zestril, Toprol-XL -DO NOT RESUSCITATE -Medical POA, Yessica,daughter Cardiovascular perioperative risk assessment: Patient's current advanced age. Multiple comorbidities. Limited exercise tolerance. Patient has a low blood loss surgery. Risk of surgical out comes is moderate to high. No cardiac patient to proceed with surgery. Discussed with daughter the bedside. Stable to proceed for surgery Continue current medications. Pending surgery today Thank you Dr. Martinez
--- NOTE | 2022-06-24 13:44 | P.OP ---
Date of Procedure: 06/24/22 Preoperative Diagnosis: Left intertrochanteric fracture Postoperative Diagnosis: Same Procedure(s) Performed: Left hip open reduction internal fixation Implants: [place], short gamma nail, 125 angle 110mm lag screw Anesthesia: CONSUELO Surgeon: Chelsea Martinez Estimated Blood Loss (ml): 50 Pathology: none sent Condition: stable Disposition: PACU Indications for Procedure: Patient is an 87-year-old male who fell at his assisted living facility. He sustained a left intertrochanteric fracture from a ground-level fall. His daughter is his POA and after discussing treatment options with her they have decided to proceed with surgical intervention. Description of Procedure: Patient, operative extremity, and procedure were identified in the preop holding area. After informed consent was obtained patient was brought back to the oper ating room. After general anesthesia was provided by the anesthesia team, he was moved onto the Jessica table. Both legs were well-padded and placed into the boots. All bony prominences were well-padded and protected throughout the case. A reduction was performed on the Jessica table and confirmed with fluoroscopy. The extremity was then prepped and draped in normal sterile fashion. After formal timeout was performed a 3 cm incision was made proximal to the greater trochanter. A awl was introduced to the tip of the greater trochanter. Guidewire was then placed. The position of the guidewire was confirmed on AP and lateral fluoroscopic views. In opening reamer was then used over the guidewire. Instruments removed and a ball-tipped guidewire was placed across the fracture site. A 12.5 mm reamer was inserted with minimal chatter. The short nail was then introduced over the guidewire. Attention was then turned to the cephalo-medullary screw. The guidewire was introduced in a retrograde fashion on the placement was confirmed on fluoroscopy in both AP and lateral views. The guidewire was confirmed to be center center in the femoral head and in the femoral neck. The appropriate length was deemed to be 110 mm. The drill was then utilized over the guidewire and a 110 mm cephalo-medullary screw was inserted. Following the insertion traction was let off and about 5 mm of co mpression was added. Fluoroscopic views confirmed good reduction. Attention was then turned to the distal locking screw. The jig was turned to the static setting. An additional incision was made in the appropriate position and the blade was taken through the ITB. The triple sleeve was inserted against the femur. The femur was then drilled and a 42.5 mm screw was inserted. Final fluoroscopic images showed a well reduced IT fracture with hardware in place. Tip to apex distance was less than 25 mm. Wound was copiously irrigated with normal saline and they were closed and a layered fashion with 3-0 Vicryl, and 4- 0 Monocryl, and skin glue. Wounds were dressed with operative foam dressings. Patient was aroused by anesthesia team and brought back to PACU in stable condition.
[2022-06-24] MEDS ORDERED: HYDROmorphone 0.5 MG/0.5 ML SYRINGE IVP ONE ×5 (13:46→14:25)
--- NOTE | 2022-06-24 13:58 | FL ---
Intraoperative/procedural fluoroscopic services were provided. Total fluoroscopy time is 1 minute 17 seconds with a total of 4 submitted images to PACS. Please see the operative/procedural note for furt her details.
[2022-06-24] MEDS: LACTATED RINGERS 1,000 ML IV SCH (15:46)
--- NOTE | 2022-06-24 15:58 | XR ---
EXAMINATION TYPE: XR Hip Limited LT DATE OF EXAM: 06/24/2022 COMPARISON: NONE HISTORY: Postop. TECHNIQUE: Single view FINDINGS: There is intramedullary margi and transverse screw fixating the intertrochanteric fracture of the left femur. Fragments are in good position. There is a large chip fracture of the lesser trochan ter and medially displaced. IMPRESSION: No complicating process seen.
[2022-06-24] MEDS: HYDROmorphone 1 MG/ML 1 ML SYRINGE IVP PRN (21:08)
[2022-06-24] MEDS: PRAVASTATIN SODIUM 20 MG TAB PO SCH (21:11)
[2022-06-24] MEDS: SENNOSIDES-DOCUSATE SODIUM 1 EACH TAB PO SCH (21:11)
[2022-06-24] MEDS: HYDROcodone/APAP 5-325MG 1 EACH TAB PO PRN (23:10)
[2022-06-25] MEDS: HYDROmorphone 1 MG/ML 1 ML SYRINGE IVP PRN (00:58)
[2022-06-25] MEDS: HYDROcodone/APAP 5-325MG 1 EACH TAB PO PRN ×3 (03:22→23:31)
[2022-06-25 09:36] LABS: Basophils # (A) 0.02 X 10*3/uL (0.00-0.10); Basophils % (A) 0.2 %; Eosinophils # (A) 0.01 X 10*3/uL (0.04-0.35); Eosinophils % (A) 0.1 %; HCT 23.6 % (39.6-50.0); HGB 7.8 g/dL (13.0-17.0); Immature Grans, Automated 0.3 %; Lymphocytes # (A) 0.53 X 10*3/uL (0.90-5.00); Lymphocytes % (A) 5.3 %; MCH 30.5 pg (27.0-32.0); MCHC 33.1 g/dL (32.0-37.0); MCV 92.2 fL (80.0-97.0); Mean Platelet Volume 10.1 fL (9.5-12.2); Monocytes # (A) 1.38 X 10*3/uL (0.20-1.00); Monocytes % (A) 13.7 %; NRBC Per 100 WBC 0 /100 WBCS (0.0-0.0); Neutrophils # (A) 8.09 X 10*3/uL (1.80-7.70); Neutrophils % (A) 80.4 %; Platelet Count 188 X 10*3/uL (140-440); RBC 2.56 X 10*6/uL (4.40-5.60); RDW 15.2 % (11.5-14.5); WBC 10.06 X 10*3/uL (4.50-10.00)
[2022-06-25] MEDS: TAMSULOSIN 0.4 MG CAP.ER.24H PO SCH ×2 (09:47→23:31)
[2022-06-25] MEDS: ASPIRIN 81 MG PO SCH (09:48)
[2022-06-25] MEDS: cilostazoL 100 MG TAB PO SCH ×2 (09:48→23:32)
[2022-06-25] MEDS: SPIRONOLACTONE 25 MG TAB PO SCH (09:48)
[2022-06-25] MEDS: ENOXAPARIN 40 MG/0.4 ML SYRINGE SQ SCH (09:48)
[2022-06-25] MEDS: METOPROLOL SUCCINATE (ER) 25 MG TAB.ER.24H PO SCH (09:49)
--- NOTE | 2022-06-25 11:16 | P.PN ---
Progress Note - Text Progress Note Date: 06/25/22 - Chief Complaint Fall Hospital course This is a pleasant 87-year-old patient who follows with Dr. Cooper. Chronic stable medical conditions include CHF EF 20%, dementia, anxiety, hypertension, BPH, hyperlipidemia, atrial fibrillation. Patient idaughter. Yessica who is the POA is at the bedside. Recently patient has been given a walker to use. Today he was sitting on a chair and the staff heard a hard and patient was found on the floor. Patient has a displaced comminuted IT fracture of the proximal left femoral. Abdomen baseline patient is able to read but can basically answer yes and no. Does not have a good memory. Limited exercise tolerance. Not really we'll answer most questions. Patient is in pain June 23: Daughter the bedside. Patient resting comfortably. For surgery tomorrow. No new issues. Discussed with daughter. June 24: Patient seen earlier today. Pending surgery. Comfortably laying in bed. June 25: Underwent surgical repair with nailing yesterday. Pain at the operative site. Answering simple questions. Did eat some breakfast. Active Medications Hydrocodone Bitart/Acetaminophen (Hydrocodone/Apap 5-325mg 1 Each Tab) 1 each PO Q4HR PRN PRN Reason: Pain Scale 1 to 5 Last Admin: 06/25/22 09:47 Dose: 1 each Hydrocodone Bitart/Acetaminophen (Hydrocodone/Apap 5-325mg 1 Each Tab) 2 each PO Q6HR PRN PRN Reason: Pain Scale 6 to 10 Last Admin: 06/25/22 03:22 Dose: 2 each Aspirin (Aspirin 81 Mg) 81 mg PO DAILY@0800 [facility] Last Admin: 06/25/22 09:48 Dose: 81 mg Cilostazol (Cilostazol 100 Mg Tab) 50 mg PO BID@1000,1900 [facility] Last Admin: 06/25/22 09:48 Dose: 50 mg Cyclobenzaprine HCl (Cyclobenzaprine 10 Mg Tab) 10 mg PO TID PRN PRN Reason: Muscle Spasm Last Admin: 06/23/22 12:51 Dose: 10 mg Diclofenac Sodium (Diclofenac Sodium Gel 100 Gm Tube) 2 gm TOPICAL BID PRN; Protocol PRN Reason: low back pain Enoxaparin Sodium (Enoxaparin 40 Mg/0.4 Ml Syringe) 40 mg SQ DAILY [facility] Last Admin: 06/25/22 09:48 Dose: 40 mg Hydromorphone HCl (Hydromorphone 0.5 Mg/0.5 Ml Syringe) 0.5 mg IVP Q4HR PRN PRN Reason: Breakthrough Pain Hydromorphone HCl (Hydromorphone 1 Mg/Ml 1 Ml Syringe) 1 mg IVP Q4HR PRN PRN Reason: Severe Breakthrough Pain Last Admin: 06/25/22 00:58 Dose: 1 mg Lactated Ringer's (Lactated Ringers) 1,000 mls @ 40 mls/hr IV .Q24H [facility] Last Admin: 06/24/22 15:46 Dose: 40 mls/hr Lisinopril (Lisinopril 2.5 Mg Tab) 2.5 mg PO [facility] Last Admin: 06/24/22 21:11 Dose: 2.5 mg Magnesium Hydroxide (Magnesium Hydroxide 2,400 Mg/10 Ml Cup) 2,400 mg PO DAILY PRN PRN Reason: Constipation Metoprolol Succinate (Metoprolol Succinate (Er) 25 Mg Tab.Er.24h) 12.5 mg PO DAILY@0800 [facility] Last Admin: 06/25/22 09:49 Dose: 12.5 mg Morphine Sulfate (Morphine Sulfate 2 Mg/Ml Syringe) 2 mg IVP Q4HR PRN PRN Reason: Breakthrough Pain Last Admin: 06/24/22 07:47 Dose: 2 mg Naloxone HCl (Naloxone 0.4 Mg/Ml 1 Ml Vial) 0.2 mg IV Q2M PRN PRN Reason: Opioid Reversal Polyethylene Glycol (Polyethylene Glycol 3350 17 Gm Powd.Pack) 17 gm PO BID PRN PRN Reason: Constipation Pravastatin Sodium (Pravastatin Sodium 20 Mg Tab) 20 mg PO HS@1999 [facility] Last Admin: 06/24/22 21:11 Dose: 20 mg Senna/Docusate Sodium (Sennosides-Docusate Sodium 1 Each Tab) 2 each PO HS [facility] Last Admin: 06/24/22 21:11 Dose: 2 each Spironolactone (Spironolactone 25 Mg Tab) 25 mg PO DAILY@0800 [facility] Last Admin: 06/25/22 09:48 Dose: 25 mg Tamsulosin HCl (Tamsulosin 0.4 Mg Cap.Er.24h) 0.4 mg PO BID@ [facility] Last Admin: 06/25/22 09:47 Dose: 0.4 mg Past medical history to include: Atrial fibrillation, CHF EF 20%, hypertension, hyperlipidemia, cognitive impairment, skin cancer, left eye blind, and large plastic, PAD permanent pacemaker Social history: Former smoker. Lives at [facility] assisted living. Has just started u sing a walker. Family history: Patient cannot tell Physical examination: VITAL SIGNS: 98.3, 70, 16, 10 8 x 50, 99% room air GENERAL: resting in bed, comfortable EYES: Pupils equal. Conjunctiva normal. HEENT: External appearance of nose and ears normal, oral cavity grossly normal. NECK: JVD not raised; masses not palpable. HEART: Irregular heart sounds; no edema. LUNGS: Respiratory rate normal; decreased breath sounds. ABDOMEN: Soft, nontender, liver spleen not palpable, no masses palpable. PSYCH: Occasionally answers yes and nol. MUSCULOSKELETAL:No Clubbing/cyanosis;muscles-grossly intact. Limited range of motion left hip, evidence of OA INVESTIGATIONS, reviewed in the clinical context: June 25: White count 10.0 hemoglobin 7.8 platelets 188 WBC 8.5 hemoglobin 11.9 platelets 290 12/11/1930 potassium 4.9. 22 creatinine 1.19 Chest x-ray film personally reviewed by me-pacemaker, cardiomegaly Hip x-ray film personally reviewed by me: Left femur fracture Assessment and plan: -Left femur fracture secondary to fall. Probably need nailing Pending surgery today -Acute postprocedure blood loss anemia, expected from surgery Follow H&H. Add ferrous sulfate -Persistent atrial fibrillation Toprol-XL 12.5 mg daily -Primary osteoarthritis Ahsan in fpc when necessary -Chronic congestive heart failure from systolic dysfunction EF 20% Aldactone. Hold Lasix. -Hyperlipidemia Pravachol -BPH Flomax 0.4 mg twice a day -Essential hypertension Zestril-hold, Toprol-XL -DO NOT RESUSCITATE -Medical POA, Yessica,daughter Follow H&H. Add ferrous sulfate. Hold Zestril. Continue other medications.
--- NOTE | 2022-06-25 13:08 | P.PN ---
Subjective Progress Note Date: 06/25/22 Principal diagnosis: Status post left hip cephalomedullary nailing This is an 87 year-old male post left hip cephalomedullary nailing. This is post-op day 1. The patient was evaluated at the bedside today. The patient able to somewhat answer yes and no questions due to his history of dementia. He appears comfortable but is complaining of right foot pain. He also moaning dur ing exam. The patient has been up with physical therapy this morning and was a max assist. Objective - Vital Signs Vital signs: Vital Signs Temp 98.3 F 06/25/22 07:43 Pulse 70 06/25/22 07:43 Resp 16 06/25/22 07:43 BP 108/50 06/25/22 07:43 Pulse Ox 99 06/25/22 07:43 FiO2 Intake & Output 06/24/22 06/25/22 06/25/22 18:59 06:59 18:59 Intake Total 1020 Output Total 100 300 Balance 920 -300 Intake: IV 900 Intake, IV Titration 120 Amount Lactated Ringers 1,000 ml 120 @ 40 mls/hr IV .Q24H [facility] Rx#:[id number] Output: Urine 300 Estimated Blood Loss 100 Other: Voiding Method External Catheter External Catheter External Catheter # Voids 2 - Exam The patient does not appear in acute distress. Alert and orientated x1. Dressings are clean dry and intact. Hip incision appears fine with no erythema or active drainage. Calf is soft and nontender. Good foot and ankle motion without difficulty. There is pain on palpation to the right ankle and mid-foot. No swelling present. Sensation and circulatory status is intact. - Labs CBC & Chem 7: 06/25/22 03:55 06/22/22 13:00 Labs: Abnormal Lab Results - Last 24 Hours (Table) 06/25/22 Range/Units 03:55 WBC 10.06 H (4.50-10.00) X 10*3/uL RBC 2.56 L (4.40-5.60) X 10*6/uL Hgb 7.8 L (13.0-17.0) g/dL Hct 23.6 L (39.6-50.0) % RDW 15.2 H (11.5-14.5) % Neutrophils # 8.09 H (1.80-7.70) X 10*3/uL Lymphocytes # 0.53 L (0.90-5.00) X 10*3/uL Monocytes # 1.38 H (0.20-1.00) X 10*3/uL Eosinophils # 0.01 L (0.04-0.35) X 10*3/uL Assessment and Plan (1) A-fib Current Visit: Yes Status: Acute Code(s): I48.91 - UNSPECIFIED ATRIAL FIBRILLATION SNOMED Code(s): 67498650 (2) Hypertension Current Visit: Yes Status: Acute Code(s): I10 - ESSENTIAL (PRIMARY) HYPERTENSION SNOMED Code(s): 82487110 (3) BPH (benign prostatic hyperplasia) Current Visit: Yes Status: Acute Code(s): N40.0 - BENIGN PROSTATIC HYPERPLASIA WITHOUT LOWER URINRY TRACT SYMP SNOMED Code(s): 644507952 (4) CHF (congestive heart failure) Current Visit: Yes Status: Acute Code(s): I50.9 - HEART FAILURE, UNSPECIFIED SNOMED Code(s): 97938902 (5) Fall Current Visit: Yes Status: Acute Code(s): W19.XXXA - UNSPECIFIED FALL, INITIAL ENCOUNTER SNOMED Code(s): 9063110 (6) Hip fracture, left Current Visit: Yes Status: Acute Code(s): S72.002A - FRACTURE OF UNSP PART OF NECK OF LEFT FEMUR, INIT SNOMED Code(s): 288453803 Plan: 1. Continue pain control 2. Anticoagulation with Lovenox 3. Start physical therapy and ambulation 4. X-rays of the right ankle to rule out fracture from fall. 5. Anticipate discharge to skilled rehab in the next 1-2 days.
--- NOTE | 2022-06-25 13:44 | XR ---
EXAMINATION TYPE: XR ankle complete RT DATE OF EXAM: 06/25/2022 COMPARISON: NONE HISTORY: Pain FINDINGS: Three views of the ankle demonstrate the ankle mortise to be intact and symmetric. The joint spaces are preserved. The osseous structures are intact. Vascular calcifications. Diffuse osteopenia. Calc aneal spur noted. IMPRESSION: 1. No definite acute fracture or dislocation, if symptoms persist follow-up study in 7 to 10 days wou ld be suggested.
[2022-06-25] MEDS: FERROUS SULFATE 325 MG TAB PO SCH (17:16)
[2022-06-25] MEDS: LACTATED RINGERS 1,000 ML IV SCH ×2 (20:00→23:33)
[2022-06-25] MEDS: PRAVASTATIN SODIUM 20 MG TAB PO SCH (23:31)
[2022-06-25] MEDS: SENNOSIDES-DOCUSATE SODIUM 1 EACH TAB PO SCH (23:32)
[2022-06-26] MEDS: HYDROmorphone 1 MG/ML 1 ML SYRINGE IVP PRN (05:06)
[2022-06-26] MEDS: HYDROcodone/APAP 5-325MG 1 EACH TAB PO PRN (05:24)
[2022-06-26] MEDS: LACTATED RINGERS 1,000 ML IV SCH (05:29)
[2022-06-26 07:53] LABS: African American GFR (CKD) 70 (>60 ml/min/1.73 sqM); Anion Gap 7 mmol/L; Blood Urea Nitrogen 35 mg/dL (9-20); Calcium 8.2 mg/dL (8.4-10.2); Carbon Dioxide 25 mmol/L (22-30); Chloride 103 mmol/L (98-107); Glucose 119 mg/dL (74-99); Non-African American GFR(CKD) 61 (>60 ml/min/1.73 sqM); Potassium 4.8 mmol/L (3.5-5.1); Sodium 135 mmol/L (137-145)
[2022-06-26] MEDS: ENOXAPARIN 40 MG/0.4 ML SYRINGE SQ SCH (09:09)
[2022-06-26] MEDS: TAMSULOSIN 0.4 MG CAP.ER.24H PO SCH ×2 (09:10→20:17)
[2022-06-26] MEDS: METOPROLOL SUCCINATE (ER) 25 MG TAB.ER.24H PO SCH (09:10)
[2022-06-26] MEDS: cilostazoL 100 MG TAB PO SCH ×2 (09:10→20:17)
[2022-06-26] MEDS: FERROUS SULFATE 325 MG TAB PO SCH ×2 (09:10→17:59)
[2022-06-26] MEDS: SPIRONOLACTONE 25 MG TAB PO SCH (09:10)
[2022-06-26] MEDS: ASPIRIN 81 MG PO SCH (09:11)
--- NOTE | 2022-06-26 10:10 | P.PN ---
Subjective Progress Note Date: 06/26/22 Principal diagnosis: Status post left hip cephalomedullary nailing This is an 87 year-old male post left hip cephalomedullary nailing. This is post-op day 2. The patient was evaluated at the bedside today. The patient able to somewhat answer yes and no questions due to his history of dementia. He appears comfortable. The patient has been up with physical therapy and was a max assist. X-rays of the right ankle were negative for fracture. He does not complain of right foot or ankle pain today. Objective - Vital Signs Vital signs: Vital Signs Temp 98.4 F 06/26/22 08:18 Pulse 69 06/26/22 08:18 Resp 18 06/26/22 08:18 BP 111/50 06/26/22 08:18 Pulse Ox 92 L 06/26/22 08:18 FiO2 Intake & Output 06/25/22 06/26/22 06/26/22 18:59 06:59 18:59 Intake Total 350 Output Total 100 Balance 350 -100 Intake: Oral 350 Output: Urine 100 Other: Voiding Method External Catheter External Catheter External Catheter # Voids 1 - Exam The patient does not appear in acute distress. Alert and orientated x1. Dressings are clean dry and intact. Hip incision appears fine with no erythema or active drainage. Calf is soft and nontender. Good foot and ankle motion without difficulty. There is no pain on palpation to the right ankle and mid- foot this morning. No swelling present. Sensation and circulatory status is intact. - Labs CBC & Chem 7: 06/25/22 03:55 06/26/22 07:16 Labs: Abnormal Lab Results - Last 24 Hours (Table) 06/26/22 Range/Units 07:16 Sodium 135 L (137-145) mmol/L BUN 35 H (9-20) mg/dL Glucose 119 H (74-99) mg/dL Calcium 8.2 L (8.4-10.2) mg/dL Assessment and Plan (1) A-fib Current Visit: Yes Status: Acute Code(s): I48.91 - UNSPECIFIED ATRIAL FIBRILLATION SNOMED Code(s): 09414311 (2) Hypertension Current Visit: Yes Status: Acute Code(s): I10 - ESSENTIAL (PRIMARY) HYPERTENSION SNOMED Code(s): 99322427 (3) BPH (benign prostatic hyperplasia) Current Visit: Yes Status: Acute Code(s): N40.0 - BENIGN PROSTATIC HYPERPLAS IA WITHOUT LOWER URINRY TRACT SYMP SNOMED Code(s): 045709624 (4) CHF (congestive heart failure) Current Visit: Yes Status: Acute Code(s): I50.9 - HEART FAILURE, UNSPECIFIED SNOMED Code(s): 13706210 (5) Fall Current Visit: Yes Status: Acute Code(s): W19.XXXA - UNSPECIFIED FALL, INITIAL ENCOUNTER SNOMED Code(s): 7620766 (6) Hip fracture, left Current Visit: Yes Status: Acute Code(s): S72.002A - FRACTURE OF UNSP PART OF NECK OF LEFT FEMUR, INIT SNOMED Code(s): 068476931 Plan: 1. Continue pain control 2. Anticoagulation with Lovenox 3. Continue physical therapy and ambulation 4. Anticipate discharge to skilled rehab when bed is available and cleared medically. Orthopedically cleared for discharge.
--- NOTE | 2022-06-26 16:20 | P.PN ---
Progress Note - Text Progress Note Date: 06/26/22 - Chief Complaint Fall Hospital course This is a pleasant 87-year-old patient who follows with Dr. Cooper. Chronic stable medical conditions include CHF EF 20%, dementia, anxiety, hypertension, BPH, hyperlipidemia, atrial fibrillation. Patient idaughter. Yessica who is the POA is at the bedside. Recently patient has been given a walker to use. Today he was sitting on a chair and the staff heard a hard and patient was found on the floor. Patient has a displaced comminuted IT fracture of the proximal left femoral. Abdomen baseline patient is able to read but can basically answer yes and no. Does not have a good memory. Limited exercise tolerance. Not really we'll answer most questions. Patient is in pain June 23: Daughter the bedside. Patient resting comfortably. For surgery tomorrow. No new issues. Discussed with daughter. June 24: Patient seen earlier today. Pending surgery. Comfortably laying in bed. June 25: Underwent surgical repair with nailing yesterday. Pain at the operative site. Answering simple questions. Did eat some breakfast. June 26: Around 5 AM patient did receive some [place] Dilaudid. Sleepy drowsy. Will DC IV pain meds. Spoke to nurse. Encourage oral intake. Patient able tonsil simple questions. Active Medications Hydrocodone Bitart/Acetaminophen (Hydrocodone/Apap 5-325mg 1 Each Tab) 1 each PO Q4HR PRN PRN Reason: Pain Scale 1 to 5 Last Admin: 06/26/22 05:24 Dose: 1 each Hydrocodone Bitart/Acetaminophen (Hydrocodone/Apap 5-325mg 1 Each Tab) 2 each PO Q6HR PRN PRN Reason: Pain Scale 6 to 10 Last Admin: 06/25/22 23:31 Dose: 2 each Aspirin (Aspirin 81 Mg) 81 mg PO DAILY@0800 [facility] Last Admin: 06/26/22 09:11 Dose: 81 mg Cilostazol (Cilostazol 100 Mg Tab) 50 mg PO BID@1000,1900 [facility] Last Admin: 06/26/22 09:10 Dose: 50 mg Cyclobenzaprine HCl (Cyclobenzaprine 10 Mg Tab) 10 mg PO TID PRN PRN Reason: Muscle Spasm Last Admin: 06/23/22 12:51 Dose: 10 mg Diclofenac Sodium (Diclofenac Sodium Gel 100 Gm Tube) 2 gm TOPICAL BID PRN; Protocol PRN Reason: low back pain Enoxaparin Sodium (Enoxaparin 40 Mg/0.4 Ml Syringe) 40 mg SQ DAILY [facility] Last Admin: 06/26/22 09:09 Dose: 40 mg Ferrous Sulfate (Ferrous Sulfate 325 Mg Tab) 325 mg PO BID-W/MEALS [facility] Last Admin: 06/26/22 09:10 Dose: 325 mg Lactated Ringer's (Lactated Ringers) 1,000 mls @ 40 mls/hr IV .Q24H [facility] Last Admin: 06/26/22 05:29 Dose: 40 mls/hr Magnesium Hydroxide (Magnesium Hydroxide 2,400 Mg/10 Ml Cup) 2,400 mg PO DAILY PRN PRN Reason: Constipation Metoprolol Succinate (Metoprolol Succinate (Er) 25 Mg Tab.Er.24h) 12.5 mg PO DAILY@0800 [facility] Last Admin: 06/26/22 09:10 Dose: 12.5 mg Naloxone HCl (Naloxone 0.4 Mg/Ml 1 Ml Vial) 0.2 mg IV Q2M PRN PRN Reason: Opioid Reversal Polyethylene Glycol (Polyethylene Glycol 3350 17 Gm Powd.Pack) 17 gm PO BID PRN PRN Reason: Constipation Pravastatin Sodium (Pravastatin Sodium 20 Mg Tab) 20 mg PO HS@1999 [facility] Last Admin: 06/25/22 23:31 Dose: 20 mg Senna/Docusate Sodium (Sennosides-Docusate Sodium 1 Each Tab) 2 each PO HS [facility] Last Admin: 06/25/22 23:32 Dose: 2 each Spironolactone (Spironolactone 25 Mg Tab) 25 mg PO DAILY@0800 [facility] Last Admin: 06/26/22 09:10 Dose: 25 mg Tamsulosin HCl (Tamsulosin 0.4 Mg Cap.Er.24h) 0.4 mg PO BID@799,1999 [facility] Last Admin: 06/26/22 09:10 Dose: 0.4 mg Past medical history to include: Atrial fibrillation, CHF EF 20%, hypertension, hyperlipidemia, cognitive impairment, skin cancer, left eye blind, and large plastic, PAD permanent pacemaker Social history: Former smoker. Lives at [facility] living. Has just started using a walker. Family history: Patient cannot tell Physical examination: VITAL SIGNS: 98.8, 50, 16, 1 10 x 45, 94% on 2 L GENERAL: A bit lethargic, arousable. EYES: Pupils equal. Conjunctiva normal. HEENT: External appearance of nose and ears normal, oral cavity grossly normal. NECK: JVD not raised; masses not palpable. HEART: Irregular heart sounds; no edema. LUNGS: Respiratory rate normal; decreased breath sounds. ABDOMEN: Soft, nontender, liver spleen not palpable, no masses palpable. PSYCH: Lethargic but answering occasional questions slowly MUSCULOSKELETAL:No Clubbing/cyanosis;muscles-grossly intact. Limited range of motion left hip, evidence of OA INVESTIGATIONS, reviewed in the clinical context: June 26: Potassium 4.8 creatinine 1.08 June 25: White count 10.0 hemoglobin 7.8 platelets 188 WBC 8.5 hemoglobin 11.9 platelets 290 [birth year]/11[birth year]1930 potassium 4.9. 22 creatinine 1.19 Chest x-ray film personally reviewed by me-pacemaker, cardiomegaly Hip x-ray film personally reviewed by me: Left femur fracture Assessment and plan: -Left femur fracture secondary to fall. Left hip ORIF, by Dr. Martinez -Acute postprocedure blood loss anemia, expected from surgery Follow H&H. ferrous sulfate -Persistent atrial fibrillation Toprol-XL 12.5 mg daily -Primary osteoarthritis Pain medications when necessary -Chronic congestive heart failure from systolic dysfunction EF 20% Aldactone. Hold Lasix. -Hyperlipidemia Pravachol -BPH Flomax 0.4 mg twice a day -Essential hypertension Zestril-hold, Toprol-XL -DO NOT RESUSCITATE -Medical POA, Yessica,daughter Continue current medications. DC IV morphine to Dilaudid. Feeding with assistance.
[2022-06-26] MEDS: CYCLOBENZAPRINE 10 MG TAB PO PRN (20:18)
[2022-06-26] MEDS: SENNOSIDES-DOCUSATE SODIUM 1 EACH TAB PO SCH (20:18)
[2022-06-27] MEDS: HYDROcodone/APAP 5-325MG 1 EACH TAB PO PRN ×3 (03:53→12:38)
[2022-06-27] MEDS: ENOXAPARIN 40 MG/0.4 ML SYRINGE SQ SCH (08:41)
[2022-06-27] MEDS: METOPROLOL SUCCINATE (ER) 25 MG TAB.ER.24H PO SCH (08:41)
[2022-06-27] MEDS: ASPIRIN 81 MG PO SCH (08:41)
[2022-06-27] MEDS: FERROUS SULFATE 325 MG TAB PO SCH ×2 (08:41→17:11)
[2022-06-27] MEDS: cilostazoL 100 MG TAB PO SCH ×2 (08:41→20:16)
[2022-06-27] MEDS: SPIRONOLACTONE 25 MG TAB PO SCH (08:41)
[2022-06-27] MEDS: TAMSULOSIN 0.4 MG CAP.ER.24H PO SCH ×2 (08:41→20:18)
[2022-06-27 11:21] LABS: Basophils # (A) 0.03 X 10*3/uL (0.00-0.10); Basophils % (A) 0.3 %; Immature Grans, Automated 0.4 %; Lymphocytes # (A) 0.63 X 10*3/uL (0.90-5.00); Lymphocytes % (A) 6.5 %; Monocytes # (A) 1.09 X 10*3/uL (0.20-1.00); Monocytes % (A) 11.2 %; NRBC Per 100 WBC 0 /100 WBCS (0.0-0.0); Neutrophils # (A) 7.83 X 10*3/uL (1.80-7.70); Neutrophils % (A) 80.6 %
[2022-06-27 11:22] LABS: HCT 21.7 % (39.6-50.0); MCH 29.6 pg (27.0-32.0); MCHC 31.8 g/dL (32.0-37.0); MCV 93.1 fL (80.0-97.0); Mean Platelet Volume 10.2 fL (9.5-12.2); Platelet Count 186 X 10*3/uL (140-440); RBC 2.33 X 10*6/uL (4.40-5.60); RDW 14.9 % (11.5-14.5); WBC 9.72 X 10*3/uL (4.50-10.00)
[2022-06-27 11:32] LABS: HGB 6.9 g/dL (13.0-17.0)
--- NOTE | 2022-06-27 14:56 | P.PN ---
Progress Note - Text Progress Note Date: 06/27/22 - Chief Complaint Fall Hospital course This is a pleasant 87-year-old patient who follows with Dr. Cooper. Chronic stable medical conditions include CHF EF 20%, dementia, anxiety, hypertension, BPH, hyperlipidemia, atrial fibrillation. Patient idaughter. Yessica who is the POA is at the bedside. Recently patient has been given a walker to use. Today he was sitting on a chair and the staff heard a hard and patient was found on the floor. Patient has a displaced comminuted IT fracture of the proximal left femoral. Abdomen baseline patient is able to read but can basically answer yes and no. Does not have a good memory. Limited exercise tolerance. Not really we'll answer most questions. Patient is in pain June 23: Daughter the bedside. Patient resting comfortably. For surgery tomorrow. No new issues. Discussed with daughter. June 24: Patient seen earlier today. Pending surgery. Comfortably laying in bed. June 25: Underwent surgical repair with nailing yesterday. Pain at the operative site. Answering simple questions. Did eat some breakfast. June 26: Around 5 AM patient did receive some [place] Dilaudid. Sleepy drowsy. Will DC IV pain meds. Spoke to nurse. Encourage oral intake. Patient able to answer simple questions. June 27: Laying in bed. Answering questions. Seen by therapy. Heather declined accepting patient today because of previous COVID test not available. [employer] project manager working on the same. Appetite better. Pain control. Hemoglobin 6.9. Transfuse 1 unit of blood Active Medications Hydrocodone Bitart/Acetaminophen (Hydrocodone/Apap 5-325mg 1 Each Tab) 1 each PO Q4HR PRN PRN Reason: Pain Scale 1 to 5 Last Admin: 06/27/22 08:42 Dose: 1 each Hydrocodone Bitart/Acetaminophen (Hydrocodone/Apap 5-325mg 1 Each Tab) 2 each PO Q6HR PRN PRN Reason: Pain Scale 6 to 10 Last Admin: 06/27/22 12:38 Dose: 2 each Aspirin (Aspirin 81 Mg) 81 mg PO DAILY@0800 [facility] Last Admin: 06/27/22 08:41 Dose: 81 mg Cilostazol (Cilostazol 100 Mg Tab) 50 mg PO BID@1000,1900 [facility] Last Admin: 06/27/22 08:41 Dose: 50 mg Cyclobenzaprine HCl (Cyclobenzaprine 10 Mg Tab) 10 mg PO TID PRN PRN Reason: Muscle Spasm Last Admin: 06/26/22 20:18 Dose: 10 mg Diclofenac Sodium (Diclofenac Sodium Gel 100 Gm Tube) 2 gm TOPICAL BID PRN; Protocol PRN Reason: low back pain Enoxaparin Sodium (Enoxaparin 40 Mg/0.4 Ml Syringe) 40 mg SQ DAILY [facility] Last Admin: 06/27/22 08:41 Dose: 40 mg Ferrous Sulfate (Ferrous Sulfate 325 Mg Tab) 325 mg PO BID-W/MEALS [facility] Last Admin: 06/27/22 08:41 Dose: 325 mg Lactated Ringer's (Lactated Ringers) 1,000 mls @ 40 mls/hr IV .Q24H [facility] Last Admin: 06/26/22 05:29 Dose: 40 mls/hr Magnesium Hydroxide (Magnesium Hydroxide 2,400 Mg/10 Ml Cup) 2,400 mg PO DAILY PRN PRN Reason: Constipation Metoprolol Succinate (Metoprolol Succinate (Er) 25 Mg Tab.Er.24h) 12.5 mg PO DAILY@0800 [facility] Last Admin: 06/27/22 08:41 Dose: 12.5 mg Naloxone HCl (Naloxone 0.4 Mg/Ml 1 Ml Vial) 0.2 mg IV Q2M PRN PRN Reason: Opioid Reversal Polyethylene Glycol (Polyethylene Glycol 3350 17 Gm Powd.Pack) 17 gm PO BID PRN PRN Reason: Constipation Pravastatin Sodium (Pravastatin Sodium 20 Mg Tab) 20 mg PO HS@1999 [facility] Last Admin: 06/25/22 23:31 Dose: 20 mg Senna/Docusate Sodium (Sennosides-Docusate Sodium 1 Each Tab) 2 each PO HS [facility] Last Admin: 06/26/22 20:18 Dose: 2 each Spironolactone (Spironolactone 25 Mg Tab) 25 mg PO DAILY@0800 [facility] Last Admin: 06/27/22 08:41 Dose: 25 mg Tamsulosin HCl (Tamsulosin 0.4 Mg Cap.Er.24h) 0.4 mg PO BID@799,1999 [facility] Last Admin: 06/27/22 08:41 Dose: 0.4 mg Past medical history to include: Atrial fibrillation, CHF EF 20%, hypertension, hyperlipidemia, cognitive impairment, skin cancer, left eye blind, and large plastic, PAD permanent pacemaker Social history: Former smoker. Lives at [facility]. Has just started using a walker. Family history: Patient cannot tell Physical examination: VITAL SIGNS: 8.3, 69, 16, 1 21 x 54, 98% room air GENERAL: Awake tired, answering questions EYES: Pupils equal. Conjunctiva normal. HEENT: External appearance of nose and ears normal, oral cavity grossly normal. NECK: JVD not raised; masses not palpable. HEART: Irregular heart sounds; no edema. LUNGS: Respiratory rate normal; decreased breath sounds. ABDOMEN: Soft, nontender, liver spleen not palpable, no masses palpable. PSYCH: Tired but answering simple questions MUSCULOSKELETAL:No Clubbing/cyanosis;muscles-grossly intact. Limited range of motion left hip, evidence of OA INVESTIGATIONS, reviewed in the clinical context: June 26: Potassium 4.8 creatinine 1.08 June 25: White count 10.0 hemoglobin 7.8 platelets 188 WBC 8.5 hemoglobin 11.9 platelets 290 12/11/1930 potassium 4.9. 22 creatinine 1.19 Chest x-ray film personally reviewed by me-pacemaker, cardiomegaly Hip x-ray film personally reviewed by me: Left femur fracture Assessment and plan: -Left femur fracture secondary to fall. Left hip ORIF, by Dr. Martinez -Acute postprocedure blood loss anemia, expected from surgery: Uncontrolled Hemoglobin 6.9.. ferrous sulfate. Transfuse 1 unit of blood -Persistent atrial fibrillation Toprol-XL 12.5 mg daily -Primary osteoarthritis Pain medications when necessary -Chronic congestive heart failure from systolic dysfunction EF 20% Aldactone. Hold Lasix. -Hyperlipidemia Pravachol -BPH Flomax 0.4 mg twice a day -Essential hypertension Zestril-hold, Toprol-XL -DO NOT RESUSCITATE -Medical POA, Yessica,daughter Transfuse 1 unit of blood. Looking for patient go to rehab. Continue other medications. Lasix 20 mg 1 dose before blood transfusion. Discussed with nurse, home health care case manager.
[2022-06-27] MEDS ORDERED: FUROSEMIDE 20 MG TAB PO SCH (15:30)
[2022-06-27] MEDS ORDERED: ACETAMINOPHEN TAB 325 MG TAB PO PRN (16:29)
[2022-06-27] MEDS: PRAVASTATIN SODIUM 20 MG TAB PO SCH (20:15)
[2022-06-27] MEDS: SENNOSIDES-DOCUSATE SODIUM 1 EACH TAB PO SCH (20:15)
[2022-06-27 20:21] VITALS: PULSE 70
[2022-06-28] MEDS: HYDROcodone/APAP 5-325MG 1 EACH TAB PO PRN (04:32)
[2022-06-28 07:12] LABS: Basophils # (A) 0.1 k/uL (0-0.2); Basophils % (A) 1 %; Eosinophils # (A) 0.2 k/uL (0-0.7); Eosinophils % (A) 2 %; HCT 24.9 % (39.0-53.0); Lymphocytes # (A) 0.5 k/uL (1.0-4.8); Lymphocytes % (A) 6 %; MCH 29.4 pg (25.0-35.0); MCHC 31.9 g/dL (31.0-37.0); MCV 92.3 fL (80.0-100.0); Mean Platelet Volume 8.2; Monocytes # (A) 0.6 k/uL (0-1.0); Monocytes % (A) 7 %; Neutrophils % (A) 83 %; Platelet Count 225 k/uL (150-450); RDW 14.6 % (11.5-15.5); WBC 8.5 k/uL (3.8-10.6)
[2022-06-28 07:24] LABS: African American GFR (CKD) >90 (>60 ml/min/1.73 sqM); Anion Gap 8 mmol/L; Blood Urea Nitrogen 40 mg/dL (9-20); Calcium 8.2 mg/dL (8.4-10.2); Carbon Dioxide 23 mmol/L (22-30); Chloride 106 mmol/L (98-107); Glucose 111 mg/dL (74-99); Non-African American GFR(CKD) 79 (>60 ml/min/1.73 sqM); Potassium 4.7 mmol/L (3.5-5.1); Sodium 137 mmol/L (137-145)
[2022-06-28] MEDS: cilostazoL 100 MG TAB PO SCH (10:08)
[2022-06-28] MEDS: FERROUS SULFATE 325 MG TAB PO SCH (10:09)
[2022-06-28] MEDS: SPIRONOLACTONE 25 MG TAB PO SCH (10:09)
[2022-06-28] MEDS: METOPROLOL SUCCINATE (ER) 25 MG TAB.ER.24H PO SCH (10:09)
[2022-06-28] MEDS: TAMSULOSIN 0.4 MG CAP.ER.24H PO SCH (10:09)
[2022-06-28] MEDS: ENOXAPARIN 40 MG/0.4 ML SYRINGE SQ SCH (10:09)
[2022-06-28] MEDS: ASPIRIN 81 MG PO SCH (10:09)
[2022-06-28 10:21] VITALS: BP 124/80; RESP 17; TEMP 98
--- NOTE | 2022-06-28 12:09 | P.DS ---
Providers Date of admission: 06/22/22 12:51 Expected date of discharge: 06/28/22 Attending physician: Claus Alcocer Consults: 06/22/22 14:54 Consult Physician Routine Consulting Provider: Tamiko Cooper Reason/Comments: medical management, surgical clearance Do you want consulting provider notified?: Yes 06/22/22 21:44 Consult Physician Routine Consulting Provider: Chelsea Martinez Consult Reason/Comments: Left hip fracture Do you want consulting provider notified?: Already Contacted Primary care physician: Tamiko Cooper [facility] Course: - Chief Complaint Fall Hospital course This is a pleasant 87-year-old patient who follows with Dr. Cooper. Chronic stable medical conditions include CHF EF 20%, dementia, anxiety, hypertension, BPH, hyperlipidemia, atrial fibrillation. Patient idaughter. Yessica who is the POA is at the bedside. Recently patient has been given a walker to use. Today he was sitting on a chair and the staff heard a hard and patient was found on the floor. Patient has a displaced comminuted IT fracture of the proximal left femoral. Abdomen baseline patient is able to read but can basically answer yes and no. Does not have a good memory. Limited exercise tolerance. Not really we'll answer most questions. Patient is in pain June 23: Daughter the bedside. Patient resting comfortably. For surgery tomorrow. No new issues. Discussed with daughter. June 24: Patient seen earlier today. Pending surgery. Comfortably laying in bed. June 25: Underwent surgical repair with nailing yesterday. Pain at the operative site. Answering simple questions. Did eat some breakfast. June 26: Around 5 AM patient did receive some [place] Dilaudid. Sleepy drowsy. Will DC IV pain meds. Spoke to nurse. Encourage oral intake. Patient able to answer simple questions. June 27: Laying in bed. Answering questions. Seen by therapy. Heather declined accepting patient today because of previous COVID test not available. care coordination manager working on the same. Appetite better. Pain control. Hemoglobin 6.9. Transfuse 1 unit of blood June 28:, Comfortable. Discussed with nurse. Ronald to be discontinued. Use Ultram when necessary. Discussed with binder caser. Patient will go to [facility]. Oral intake fair. Discussion and discharge planning more than 35 minutes Past medical history to include: Atrial fibrillation, CHF EF 20%, hypertension, hyperlipidemia, cognitive impairment, skin cancer, left eye blind, and large plastic, PAD permanent pacemaker Social history: Former smoker. Lives at [facility] living. Has just started using a walker. Family history: Patient cannot tell Physical examination: VITAL SIGNS: 98, 70, 17, 124/80, 97% room air GENERAL: Awake tired, answering questions EYES: Pupils equal. Conjunctiva normal. HEENT: External appearance of nose and ears normal, oral cavity grossly normal. NECK: JVD not raised; masses not palpable. HEART: Irregular heart sounds; no edema. LUNGS: Respiratory rate normal; decreased breath sounds. ABDOMEN: Soft, nontender, liver spleen not palpable, no masses palpable. PSYCH: Answering simple questions MUSCULOSKELETAL:No Clubbing/cyanosis;muscles-grossly intact. Limited range of motion left hip, evidence of OA INVESTIGATIONS, reviewed in the clinical context: June 28: Hemoglobin 8 creatinine 0.82 June 26: Potassium 4.8 creatinine 1.08 June 25: White count 10.0 hemoglobin 7.8 platelets 188 WBC 8.5 hemoglobin 11.9 platelets 290 12/11/1930 potassium 4.9. 22 creatinine 1.19 Chest x-ray film personally reviewed by me-pacemaker, cardiomegaly Hip x-ray film personally reviewed by me: Left femur fracture Assessment and plan: -Left femur fracture secondary to fall. Left hip ORIF, by Dr. Martinez -Acute postprocedure blood loss anemia, expected from surgery: Uncontrolled Hemoglobin 6.9.. ferrous sulfate. Transfuse 1 unit of blood -Persistent atrial fibrillation Toprol-XL 12.5 mg daily -Primary osteoarthritis Pain medications when necessary -Chronic congestive heart failure from systolic dysfunction EF 20% Aldactone. Lasix 20 mg a day. -Hyperlipidemia Pravachol -BPH Flomax 0.4 mg twice a day -Essential hypertension Zestril- Toprol-XL -DO NOT RESUSCITATE -Medical POA, Yessica,daughter Disposition: /Rehab at [facility] Plan - Discharge Summary Discharge Rx Participant: Yes New Discharge Prescriptions: New Enoxaparin [Lovenox] 40 mg SQ DAILY #30 each Sennosides-Docusate Sodium [Senokot-S] 2 tab PO HS #30 tablet Cyclobenzaprine [Flexeril] 10 mg PO TID PRN tab PRN Reason: Muscle Spasm Ferrous Sulfate [Iron (65 MG Elemental)] 325 mg PO BID-W/MEALS tab Acetaminophen Tab [Tylenol] 650 mg PO Q6HR PRN tab PRN Reason: Fever And/ Or Pain Continue Aspirin EC [Ecotrin Low Dose] 81 mg PO DAILY@0800 Tamsulosin [Flomax] 0.4 mg PO BID@08,1999 Cholecalciferol [Vitamin D3 (25 Mcg = 1000 Iu)] 50 mcg PO DAILY@0800 polyethylene glycoL 3350 [Miralax] 17 gm PO BID PRN PRN Reason: Constipation Diclofenac Sodium Gel [Voltaren Gel] 2 gm TOPICAL BID PRN PRN Reason: low back pain Pravastatin Sodium [Pravachol] 20 mg PO HS@1999 Metoprolol Succinate (ER) [Toprol XL] 12.5 mg PO DAILY@0800 Carbamide Peroxide [Debrox Otic] 5 drops BOTH EARS BID PRN PRN Reason: irritation Spironolactone [Aldactone] 25 mg PO DAILY@0800 lisinopriL [Zestril] 2.5 mg PO DAILY@0800 cilostazoL [Pletal] 50 mg PO BID@1000,1900 Discontinued Acetaminophen Tab [Tylenol Tab] 1,000 mg PO Q8H PRN PRN Reason: back/leg pain Furosemide [Lasix] 40 mg PO DAILY@0800 Discharge Medication List Aspirin EC [Ecotrin Low Dose] 81 mg PO DAILY@0800 07/04/20 [History] Tamsulosin [Flomax] 0.4 mg PO BID@0800,199907/04/20 [History] Cholecalciferol [Vitamin D3 (25 Mcg = 1000 Iu)] 50 mcg PO DAILY@0800 12/23/20 [History] Carbamide Peroxide [Debrox Otic] 5 drops BOTH EARS BID PRN 06/22/22 [History] Diclofenac Sodium Gel [Voltaren Gel] 2 gm TOPICAL BID PRN 06/22/22 [History] Metoprolol Succinate (ER) [Toprol XL] 12.5 mg PO DAILY@0800 06/22/22 [History] Pravastatin Sodium [Pravachol] 20 mg PO HS@199906/22/22 [History] Spironolactone [Aldactone] 25 mg PO DAILY@0800 06/22/22 [History] cilostazoL [Pletal] 50 mg PO BID@1000,1900 06/22/22 [History] lisinopriL [Zestril] 2.5 mg PO DAILY@0800 06/22/22 [History] polyethylene glycoL 3350 [Miralax] 17 gm PO BID PRN 06/22/22 [History] Enoxaparin [Lovenox] 40 mg SQ DAILY #30 each 06/26/22 [Rx] Sennosides-Docusate Sodium [Senokot-S] 2 tab PO HS #30 tablet 06/26/22 [Rx] Cyclobenzaprine [Flexeril] 10 mg PO TID PRN tab 06/27/22 [Rx] Ferrous Sulfate [Iron (65 MG Elemental)] 325 mg PO BID-W/MEALS tab 06/27/22 [Rx] Acetaminophen Tab [Tylenol] 650 mg PO Q6HR PRN tab 06/28/22 [Rx] Follow up Appointment(s)/Referral(s): Chelsea Martinez DO [Doctor of Osteopathic Medicine] - 07/12/22 10:45 am Tamiko Cooper MD [Primary Care Provider] - 07/02/22 2:15 pm Activity/Diet/Wound Care/Special Instructions: Keep Optifoam dressing in place until saturated for 1 week. May shower with dressings in place. Once dressings are removed, may shower uncovered. PT - WBAT with a walker. Use pain medication as directed. Continue LMWH for 4 weeks then stop. Follow up outpatient with Dr. Martinez in 2 weeks. -- call for appointment. Call [facility] with questions or concerns Discharge Disposition: TRANSFER TO SNF/ECF
[2022-06-28] MEDS ORDERED: traMADol 50 MG TAB PO PRN (12:11)
[2022-06-28 14:26] VITALS: BMI 23.6
== END 2022-06-28 14:49 | DRG 480 ==
LOC: EC 11:15 → 5NMEDONC 12:51 → 4SSUR 06-24 19:01
PROVIDERS: ADMIT Hospitalist; ATTEND Hospitalist
PROC: 0QS736Z Reposition Left Upper Femur with Intramedullary Internal Fixation Device, Percutaneous Approach (ICD-10-PCS; principal; 2022-06-24 14:30)
PROC: 30233N1 Transfusion of Nonautologous Red Blood Cells into Peripheral Vein, Percutaneous Approach (ICD-10-PCS; 2022-06-27)
DX: S72.142A Displaced intertrochanteric fracture of left femur, initial encounter for closed fracture (principal); U07.1 COVID-19; F03.94 Unspecified dementia, unspecified severity, with anxiety; I48.19 Other persistent atrial fibrillation; I50.22 Chronic systolic (congestive) heart failure; D62 Acute posthemorrhagic anemia; I11.0 Hypertensive heart disease with heart failure; I73.9 Peripheral vascular disease, unspecified; Z66 Do not resuscitate; M16.12 Unilateral primary osteoarthritis, left hip; E78.5 Hyperlipidemia, unspecified; I25.10 Atherosclerotic heart disease of native coronary artery without angina pectoris; N40.0 Benign prostatic hyperplasia without lower urinary tract symptoms; F41.9 Anxiety disorder, unspecified; M54.50 Low back pain, unspecified; M79.671 Pain in right foot; H54.62 Unqualified visual loss, left eye, normal vision right eye; K59.00 Constipation, unspecified; Z79.82 Long term (current) use of aspirin; Z79.02 Long term (current) use of antithrombotics/antiplatelets; Z79.899 Other long term (current) drug therapy; Z87.891 Personal history of nicotine dependence; Z91.81 History of falling; Z95.0 Presence of cardiac pacemaker; Z85.828 Personal history of other malignant neoplasm of skin; W07.XXXA Fall from chair, initial encounter; Y92.129 Unspecified place in nursing home as the place of occurrence of the external cause
CPT/HCPCS: 71045; 73501; 73502; 80048; 80053; 80306; 85025; 85610; 85730; 86850; 86900; 86901; 86920; 87635; 96361; 96374; 96375; 99285

== ENCOUNTER 2022-07-27 08:09 | Emergency (ER) | payer MEDICARE ==
[2022-07-27 08:25] VITALS: RESP 18
--- NOTE | 2022-07-27 09:01 | XR ---
EXAMINATION TYPE: XR Hip LT and AP Pelvis DATE OF EXAM: 07/27/2022 COMPARISON: NONE HISTORY: Pain TECHNIQUE: A single AP view of the pelvis is obtained. Two views of the left hip are obtained. FINDINGS: There is postsurgical change involving the femur. Arthropathy of the bilateral hip with po stsurgical change in the left. Displaced lesser trochanter portion of the fracture stable from prior exam. Vascular calcification seen. SI joints symmetric. IMPRESSION: 1. Postsurgical change involving the left femur 2. No acute fracture
[2022-07-27] MEDS ORDERED: KETOROLAC 15 MG/ML 1 ML VIAL IVP STA (09:08)
--- NOTE | 2022-07-27 10:15 | ED ---
General Adult HPI - General Chief complaint: Extremity Injury, Lower Stated complaint: Fall,Lt Hip Pain Time Seen by Provider: 07/27/22 08:10 Source: patient, RN notes reviewed, old records reviewed Mode of arrival: EMS Limitations: physical limitation - History of Present Illness Initial comments: This is an 79-year-old male presents emergency room complaining of sliding out of a chair and landing on his recently repaired hip. According to staff patient was grabbing at his left hip and they were concerned that he hurt it. Patient has no other complaints per patient denies any upper extremities pain patient denies any chest or back pain and its new. Patient denies hitting his head or neck. According to EMS it appeared that the patient slid out of the chair onto his left hip - Related Data Home Medications Medication Instructions Recorded Confirmed Aspirin EC [Ecotrin Low Dose] 81 mg PO DAILY@0800 07/04/20 07/27/22 Tamsulosin [Flomax] 0.4 mg PO BID@08,199907/04/20 07/27/22 Cholecalciferol [Vitamin D3 (25 50 mcg PO DAILY@79912/23/20 07/27/22 Mcg = 1000 Iu)] Diclofenac Sodium Gel [Voltaren 2 gm TOPICAL BID PRN 06/22/22 07/27/22 Gel] Metoprolol Succinate (ER) [Toprol 12.5 mg PO DAILY@0806/22/22 07/27/22 XL] Pravastatin Sodium [Pravachol] 20 mg PO HS@199906/22/22 07/27/22 Spironolactone [Aldactone] 25 mg PO DAILY@0800 06/22/22 07/27/22 cilostazoL [Pletal] 50 mg PO BID@1000,1900 06/22/22 07/27/22 Acetaminophen [Tylenol 8 Hour] 650 mg PO Q6H PRN 07/27/22 07/27/22 Cyclobenzaprine [Flexeril] 10 mg PO DAILY PRN 07/27/22 07/27/22 Ferrous Sulfate [Iron (65 MG 325 mg PO BID@0800,1700 07/27/22 07/27/22 Elemental)] Furosemide [Lasix] 20 mg PO DAILY@0800 07/27/22 07/27/22 Sennosides-Docusate Sodium 2 tab PO HS@199907/27/22 07/27/22 [Senokot-S] Thera-M 1 tab PO DAILY@1700 07/27/22 07/27/22 lisinopriL [Zestril] 2.5 mg PO HS@199907/27/22 07/27/22 traMADol HCl [Ultram] 25 - 50 mg PO BID PRN 07/27/22 07/27/22 Allergies Allergy/AdvReac Type Severity Reaction Status Date / Time No Known Allergies Allergy Verified 07/27/22 09:35 Review of Systems ROS Statement: Those systems with pertinent positive or pertinent negative responses have been documented in the HPI. ROS Other: All systems not noted in ROS Statement are negative. 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 Patient is in mild distress. EYES Patient's pupils are equal and round. Extraocular motion is intact. NECK Patient's neck has full range of motion. SKIN Unremarkable. Patient has no contusions bruises or hematomas on the patient's head. NEURO The patient is alert and oriented 3 PYSCH Patient has normal interpersonal interactions. MUSCULOSKELETAL Patient is able to straighten his left leg completely. Patient does grab the hip and states it hurts but he has no pain with external rotation. There is no shortening. The rest of his extremities move full range of motion without any issues. Limitations: physical limitation Course Vital Signs 07/27/22 07/27/22 08:11 09:51 Temperature 98.2 F Pulse Rate 70 70 Respiratory 18 18 Rate Blood Pressure 141/110 156/72 O2 Sat by Pulse 100 98 Oximetry Medical Decision Making - Medical Decision Making I read the x-ray of the hip. X-ray of the hip shows no acute fracture there is nonunion of the greater trochanter. I read the x-ray of the femur. X-ray of the femur again shows the nonunion of the greater trochanter but there is no acute fracture. Patient is able to move his hip and according to the daughter he does have some pain there and he has had pain there prior to the fall. Disposition Clinical Impression: Contusion, hip Disposition: HOME SELF-CARE Condition: Good Instructions (If sedation given, give patient instructions): Hip Contusion (ED) Is patient prescribed a controlled substance at d/c from ED?: No Referrals: Tamiko Cooper MD [Primary Care Provider] - 1-2 days Time of Disposition: 10:50
--- NOTE | 2022-07-27 10:37 | XR ---
EXAMINATION TYPE: XR femur LT DATE OF EXAM: 07/27/2022 COMPARISON: NONE HISTORY: Pain TECHNIQUE: 4 views submitted FINDINGS: Postsurgical changes in the remains a displaced nonunion fracture or trochanteric portion o f the left femur. Lesser trochanter displaced fragment stable from prior exam. Severe arthropathy of the knee joint with vascular calcifications and diffuse osteopenia. Arthropathy of hip joint. IMPRESSION: 1. 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
[2022-07-27 11:47] VITALS: TEMP 98
[2022-07-27 11:49] VITALS: BP 145/66; PULSE 70
== END 2022-07-27 12:10 | disposition home or self-care (01) ==
LOC: EC 08:09
DX: S70.02XA Contusion of left hip, initial encounter (principal); I48.91 Unspecified atrial fibrillation; I50.9 Heart failure, unspecified; E78.5 Hyperlipidemia, unspecified; I10 Essential (primary) hypertension; Z87.891 Personal history of nicotine dependence; Z79.891 Long term (current) use of opiate analgesic; Z79.01 Long term (current) use of anticoagulants; Z79.899 Other long term (current) drug therapy; W07.XXXA Fall from chair, initial encounter
CPT/HCPCS: 73502; 73552; 99284; 96374; J1885